=== PATIENT | male | born 1960 | race Caucasian/White ===

== ENCOUNTER 2018-01-02 11:58 | Inpatient (IN) | payer OTHER, SELFPAY ==
[2018-01-02 13:12] LABS: Hemoglobin 12.9 g/dL (14.0-18.0); Mean Corpuscular Hemoglobin 29.9 pg (27.0-31.0); Mean Corpuscular Volume 90.6 fl (80.0-94.0); Mean Platelet Volume 6.4 fL (7.4-10.4); Platelet Count 35 thou/uL (130-400); RBC Distribution Width 13.5 % (11.5-14.5); Red Blood Cell (RBC) Count 4.33 mill/uL (4.70-6.10)
[2018-01-02] MEDS ORDERED: ISOVUE-370 76%-LOCM 1 ML ONE (13:13)
[2018-01-02 13:19] LABS: ALT (SGPT) 27 U/L (8-55); AST (SGOT) 32 U/L (5-34); Albumin 4.2 g/dL (3.5-5.0); Alkaline Phosphatase 139 U/L (40-150); Anion Gap 18 mmol/L (10-20); BUN (Urea Nitrogen) 12 mg/dL (8.4-25.7); Bilirubin, Total 0.7 mg/dL (0.2-1.2); CK (CPK) 73 U/L (30-200); Calc. Creatinine Clearance 0 mL/min (70-130); Calcium 9.8 mg/dL (7.8-10.44); Carbon Dioxide 27 mmol/L (22-29); Chloride 95 mmol/L (98-107); Estimated GFR-MDRD 86; Globulin 2.5 g/dL (2.4-3.5); Glucose 92 mg/dL (70-105); Potassium 4.5 mmol/L (3.5-5.1); Protein, Total 6.7 g/dL (6.0-8.3); Sodium 135 mmol/L (136-145)
[2018-01-02 13:22] LABS: Troponin I Less than 0.010 ng/mL (< 0.028)
[2018-01-02] MEDS ORDERED: Morphine 4 MG/ML VIAL ONE ×2 (13:30→18:37)
[2018-01-02 13:40] LABS: Acanthocytes SLIGHT = 1-5 cells (100X) (None Seen); Band 5 % (5-11); Differential Comment Blast-Like Cell(s); Lymphocytes 15 % (21-51); MDiff Complete? YES; Metamyelocyte 1 % (0-0); Monocytes 3 % (0-10); Myelocyte 1 % (0-0); Neutrophil 2 % (42-75); PLT Morphology Comment Appears Decreased
--- NOTE | 2018-01-02 13:56 | RAD ---
PORTABLE CHEST 1 VIEW: Date: 01/02/18 Time: 1310 hours HISTORY: Chest pain. FINDINGS: Comparison made with exam of 04/26/16. Right-sided Port-A-Cath remains in place. The heart size is normal. The lungs are expanded without fo mari areas of consolidation, pneumothoraces, or pleural effusions. No acute osseous abnormalities are seen. IMPRESSION: No radiographic evidence of acute cardiopulmonary process. POS: C
--- NOTE | 2018-01-02 14:14 | CT ---
CTA OF THE THORAX UTILIZING IV CONTRAST AND 3D REFORMATTED IMAGING: Date: 01/02/18 INDICATION: History of chest pain. COMPARISON: Prior CT of the thorax dated 04/17/16. FINDINGS: There is stable mid ectasia of the ascending aorta measuring up to 3.8 cm. The aortic arch measures 2 .4 cm. The descending thoracic aorta at level of right main pulmonary artery measures 2.2 cm. No defi nite dissection is evident. Abdominal aorta normal appearing. There is scattered emphysema. There are areas of peripheral tree-in-bud nodularity within both upper lobes. The pleural based soft tissue density seen anterior to the right middle lobe is stable, measur ing 1.5 x 0.6 cm. The suprahilar lymph node has decreased in size from the most recently comparison of 04/17/16, now me asuring 2.3 x 1.7 cm, where it previously measured 3.6 x 1.2 cm. There has been interval development of soft tissue mass involving the superior pole of the right kidn ey measuring 6.6 x 5.8 cm. Bulky adenopathy of the upper abdomen is significantly decreased in promin ence from the comparison CT abdomen/pelvis seen on 06/23/16. Nodule in the upper abdomen previously m easured 2.5 cm on the comparison exam on image 36 of series 2, now measures 1.9 cm on image 146 of se prosper 2. No acute osseous abnormality is evident. The spleen is surgically absent. IMPRESSION: 1. No evidence of aortic dissection, occlusion, or aneurysm. There is mild dilatation of the ascendi ng aorta. 2. Soft tissue mass superior pole right kidney is concerning for malignancy. Follow-up CT of abdomen utilizing renal mass protocol is recommended for further evaluation and characterization. 3. Improvement of the adenopathy seen within the mediastinum and upper abdomen. Interval splenectomy . 4. Tree-in-bud nodularity in both upper lobes are nonspecific, but can be seen with infectious, infl ammatory, and neoplastic etiologies. This is most commonly seen with bronchiolitis. 5. Scattered emphysema. CODE T. POS: [facility]
[2018-01-02] MEDS ORDERED: Levofloxacin 500 mg/D5W 100 ml Premix Bag ONE (15:12)
[2018-01-02] MEDS ORDERED: Morphine 4 MG/ML VIAL SLOW IVP PRN (16:13)
[2018-01-02] MEDS ORDERED: Zolpidem Tartrate 5 MG TAB PO PRN (16:13)
[2018-01-02] MEDS ORDERED: Guaifenesin DM 100-10/5 ML UDCUP PO PRN (16:13)
[2018-01-02] MEDS ORDERED: Acetaminophen 325 MG TAB PO PRN (16:13)
--- NOTE | 2018-01-02 16:49 | HP ---
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 HISTORY OF PRESENTING ILLNESS: The patient gives history of body aches and chest pain. This started from yesterday. The aches and pains are all over, mostly. He has had known history of mantle cell lymphoma and has recent conversion into leukemia. He follows up with Dr. Garibay. There is no fever or expectoration. No complaints of urinary symptoms including frequency, urgency or burning. On arrival, he had a white count of 125 with 2% neutrophils , 15% lymphocytes, 5% bands and 73% of other cells which the pathologist has to review. He has had a dose of morphine in the ER and has felt good. The patient also has had a CT angio chest done which shows no evidence of PE. PAST MEDICAL AND SURGICAL HISTORY: History of mantle cell lymphoma diagnosed in 2016. He has had history of splenectomy done at [facility] in 2016. Facial reconstruction surgery due to baseball accident when he was 17 years old, has been on Imbruvica and Venclexta chemotherapy from Tuesday. CURRENT MEDICATIONS: The patient is on Imbruvica and Venclexta chemotherapy from Tuesday per patient. ALLERGIES: No known drug allergies. PERSONAL HISTORY: Smokes one pack a day. Does not abuse alcohol or drugs. FAMILY HISTORY: Mother is healthy and she is here at bedside. Father at the age of 84 years from old age and has had [place] prior to as well. CODE STATUS: FULL, both mom and brother make decisions for him. He has a daughter and 2 grandkids who all live in [place]. The patient is . REVIEW OF SYSTEMS: The following complete review of systems was negative, unless otherwise mentioned in the HPI or below: Constitutional: Weight loss or gain, ability to conduct usual activities. Skin: Rash, itching. Eyes: Double vision, pain. ENT/Mouth: Nose bleeding, neck stiffness, pain, tenderness. Cardiovascular: Palpitations, dyspnea on exertion, orthopnea. Respiratory: Shortness of breath, wheezing, cough, hemoptysis, fever or night sweats. Gastrointestinal: Poor appetite, abdominal pain, heartburn, nausea, vomiting, constipation, or diarrhea. Genitourinary: Urgency, frequency, dysuria, nocturia. Musculoskeletal: Pain, swelling. Neurologic/Psychiatric: Anxiety, depression. Allergy/Immunologic: Skin rash, bleeding tendency. PHYSICAL EXAMINATION: GENERAL: The patient is a 57-year-old male who is currently not in any acute distress. VITAL SIGNS: Blood pressure 144/76, pulse 90 per minute, respiratory rate 16 per minute, temperature 98.7 degrees Fahrenheit, saturating 98% on room air. NECK: Supple, no elevated JVD. HEENT: Extraocular muscles are intact. Pupils are reacting to light. Oral cavity mucous membranes are moist. No exudates or congestion. CARDIOVASCULAR: S1, S2 heard. Regular rhythm. RESPIRATORY: Air entry 1+ bilaterally. No rales or rhonchi. ABDOMEN: Soft, bowel sounds heard. No tenderness, rigidity or guarding. EXTREMITIES: No peripheral edema or calf tenderness. VASCULAR SYSTEM: Peripheral pulses 1+ bilateral, no ischemic ulcerations or gangrene. CENTRAL NERVOUS SYSTEM: No gross focal deficits seen. Patient is alert, awake , oriented well. PSYCHIATRIC: The patient's mood is euthymic. No hallucinations or delusions. LABORATORY AND X-RAY FINDINGS: White count of 125, H&H 12 and 39, MCV is 90, platelet count is 35, with 2% neutrophils, 5% bands, 15% lymphocytes, 3% monocytes and 73% other cells type. Sodium 135, BUN 12, creatinine 0.9, glucose is 92. Liver enzymes are within normal limits. First set of cardiac enzymes are negative. Albumin is 4.2. CT angio chest done shows no evidence of aortic dissection or occlusion, or aneurysm. There is mild dilatation of ascending aorta, soft tissue mass in the superior pole of right kidney concerning for malignancy, possible infectious/inflammatory or neoplastic nonspecific findings in the lungs with tree-in-bud nodularity. Scattered emphysema. EKG done shows normal sinus rhythm at 91 beats per minute. CLINICAL IMPRESSION AND PLAN: The patient will be admitted to oncology floor for mantle cell lymphoma with possible conversion to leukemia. The ER physician had tried to call Jose Ng, but he was apparently declined and was asked to go in to Hospice per ER physician. He is a patient of Dr. Garibay who will be evaluating the patient. She will discuss with the patient about poor prognosis during his hospitalization here per ER doc who spoke with her. For now, he will be on morphine for pain control. Pepcid 20 mg twice daily. We will place him on a regular diet and await Oncology plans for patient. MTDD
[2018-01-02] MEDS: Sodium Chloride 0.9% 1,000 ML IV SCH (20:12)
[2018-01-02] MEDS: Famotidine 20 MG TAB PO SCH (20:15)
--- NOTE | 2018-01-02 20:18 | CON ---
DATE OF CONSULTATION: 01/02/2018 REASON FOR CONSULTATION: Mantle cell lymphoma. HISTORY OF PRESENT ILLNESS: Mr. Merino is a pleasant 57-year-old male , who has mantle cell lymphoma. He is on Imbruvica, but had recent relapse with a white blood cell count of 125,000. He presented to the emergency room today with chest pain, states that his pain is like a band across his diaphragm , it is worse with movement and with a deep breath. He had a chest x-ray performed, which showed no acute process. He underwent a CT angio to rule out PE. There was a pleural based soft tissue density in the right middle lobe measuring 1.5 x 0.6 cm. There was a suprahilar lymph node noted smaller than a previous scan from 2016. He also had a soft tissue mass at the superior pole of the right kidney measuring 6.6 x 5.8 cm. There was no evidence of PE. The patient is being admitted for serial enzymes and pain control. PAST MEDICAL HISTORY: Mantle cell lymphoma diagnosed in 2016. PAST SURGICAL HISTORY: 1. Splenectomy. 2. Facial reconstruction. 3. MediPort placement. ALLERGIES: No known drug allergies. HOME MEDICATIONS: Ibrutinib 140 mg 4 tablets daily. FAMILY HISTORY: Noncontributory. SOCIAL HISTORY: He is , has 1 child. He is a current every day smoker. No alcohol or illicit drug use. REVIEW OF SYSTEMS: Twelve point review of systems is negative except for noted in HPI. PHYSICAL EXAMINATION: VITAL SIGNS: Stable. GENERAL: A well-developed, well-nourished male in no acute distress. HEENT: Normocephalic, atraumatic. Pupils are equal and reactive to light. NECK: Supple. CARDIOVASCULAR: Regular rate and rhythm. LUNGS: Clear. ABDOMEN: Soft, nontender, bowel sounds are positive. EXTREMITIES: No clubbing, cyanosis or edema. SKIN: No rash. HEMATOLOGIC: No petechia or purpura. NEUROLOGIC: Nonfocal. PSYCHIATRIC: The patient is alert, oriented and appropriate. PERTINENT LABORATORY AND X-RAYS: Current WBCs are 125,000, hemoglobin 12.9, hematocrit 39.2, platelet count 35,000. He has got 2% neutrophils, 5% bands, 15 % lymphocytes, and large atypical cells consistent with mantle cell lymphoma. Sodium is 135, potassium is 4.5, chloride is 95, CO2 is 27, BUN is 12, creatinine is 0.91, calcium is 9.8, total bilirubin is 0.7, AST is 32, ALT is 27 , alkaline phosphatase is 139, creatinine kinase is 73. Troponin is negative. Serum total protein is 6.7, albumin is 4.2, and globulin is 2.5. Radiology per HPI. IMPRESSION: 1. Mantle cell lymphoma with recent relapse. 2. Chest pain, likely noncardiac. DISCUSSION: The patient was originally diagnosed with mantle cell lymphoma in 2016 and was in remission until recently. He is due to start a new chemotherapy regimen on Tuesday with Venclexta. His chest pain is likely noncardiac, but may due to leukostasis. It generally does not happen with lymphocytes. There is no evidence of acute shortness of breath or mental status changes. We would treat with pain medication, IV fluids, and serial enzymes to ensure that is noncardiac. We will follow his hospital course closely. Thank you for the consult. STEVE
[2018-01-02] MEDS: Morphine 5 MG/ML SYRINGE SLOW IVP PRN ×2 (20:21→23:18)
[2018-01-02 21:58] VITALS: BMI 19.5
[2018-01-03] MEDS: Morphine 5 MG/ML SYRINGE SLOW IVP PRN ×6 (03:35→19:40)
[2018-01-03 05:34] LABS: Hemoglobin 12.1 g/dL (14.0-18.0); Mean Corpuscular HGB CONC 32.9 g/dL (32.0-36.0); Mean Corpuscular Volume 90.9 fl (80.0-94.0); Mean Platelet Volume 10.3 fL (7.4-10.4); Platelet Count 32 thou/uL (130-400); RBC Distribution Width 13.4 % (11.5-14.5); Red Blood Cell (RBC) Count 4.02 mill/uL (4.70-6.10)
[2018-01-03 05:41] LABS: Anion Gap 13 mmol/L (10-20); BUN (Urea Nitrogen) 11 mg/dL (8.4-25.7); Calc. Creatinine Clearance 84 mL/min (70-130); Calcium 9.6 mg/dL (7.8-10.44); Carbon Dioxide 29 mmol/L (22-29); Chloride 100 mmol/L (98-107); Estimated GFR-MDRD Greater than 90; Glucose 79 mg/dL (70-105); Potassium 5.2 mmol/L (3.5-5.1); Sodium 137 mmol/L (136-145)
[2018-01-03 05:52] LABS: Lymphocytes 8 % (21-51); MDiff Complete? YES; Monocytes 3 % (0-10); Neutrophil 3 % (42-75); PLT Morphology Comment Appears Decreased
[2018-01-03] MEDS: Sodium Chloride 0.9% 1,000 ML IV SCH ×2 (06:38→18:17)
[2018-01-03] MEDS: Famotidine 20 MG TAB PO SCH ×2 (07:53→19:42)
--- NOTE | 2018-01-03 11:36 | PDOC.PN ---
- Subjective Encounter Start Date: 01/03/18 Encounter Start Time: 11:00 Subjective: no chest pain, has generalized aches all over -: no sob - Objective Resuscitation Status: Resuscitation Status FULL:Full Resuscitation MAR Reviewed: Yes Vital Signs & Weight: Vital Signs (12 hours) Temp Pulse Resp BP BP Pulse Ox 01/03/18 11:32 98.2 F 98 20 122/76 94 L 01/03/18 08:00 98.6 F 89 16 94 L 01/03/18 07:41 98.6 F 89 16 127/82 01/03/18 05:05 98.8 F 82 20 129/82 93 L 01/03/18 00:00 98.4 F 83 20 153/82 H 94 L Weight Admit Weight 136 lb 0.051 oz Weight 136 lb 0.051 oz Result Diagrams: 01/03/18 05:02 01/03/18 05:02 Phys Exam - Physical Examination HEENT: PERRLA, moist MMs Neck: no JVD, supple Respiratory: no wheezing, no rales rhonchi+ Cardiovascular: RRR, no significant murmur Gastrointestinal: soft, non-tender, positive bowel sounds Musculoskeletal: no edema, pulses present Neurological: non-focal, moves all 4 limbs Psychiatric: normal affect, A&O x 3 Dx/Plan (1) Mantle cell lymphoma Code(s): C83.10 - MANTLE CELL LYMPHOMA, UNSPECIFIED SITE Status: Chronic Comment: recurrence with likely leukemic conversion? (2) COPD (chronic obstructive pulmonary disease) Status: Chronic Qualifiers: COPD type: chronic bronchitis - Plan gentle iv hydration -: is awaiting to talk to him -: dc plan per onc advice -: duonebs -: morphine prn * . Review of Systems - Medications/Allergies Allergies/Adverse Reactions: Allergies Allergy/AdvReac Type Severity Reaction Status Date / Time No Known Allergies Allergy Verified 04/17/16 12:04 Medications: Current Medications Acetaminophen (Tylenol) 650 mg PO Q4H PRN PRN Reason: Headache/Fever or Pain Famotidine (Pepcid) 20 mg PO BID [facility] Last Admin: 01/03/18 07:53 Dose: 20 mg Guaifenesin/Dextromethorphan (Robitussin Dm) 15 ml PO Q4H PRN PRN Reason: Cough Sodium Chloride (Normal Saline 0.9%) 1,000 mls @ 75 mls/hr IV .[id number] [facility] Last Admin: 01/03/18 06:38 Dose: 1,000 mls Morphine Sulfate (Morphine) 4 mg SLOW IVP Q3H PRN PRN Reason: Chest Pain/BP Elevations Last Admin: 01/03/18 09:22 Dose: 4 mg Sodium Chloride (Flush - Normal Saline) 10 ml IVF PRN PRN PRN Reason: Saline Flush Zolpidem Tartrate (Ambien) 5 mg PO HSPRN PRN PRN Reason: Insomnia
[2018-01-03] MEDS: Morphine ER 30 MG TAB PO SCH (19:41)
[2018-01-03] MEDS: Morphine 4 MG/ML VIAL SLOW IVP PRN (22:50)
[2018-01-04] MEDS: Morphine 4 MG/ML VIAL SLOW IVP PRN ×6 (03:38→21:52)
[2018-01-04] MEDS ORDERED: Lidocaine 5% Patch TD PRN (07:57)
--- NOTE | 2018-01-04 07:59 | PDOC.PN ---
- Subjective Encounter Start Date: 01/04/18 Encounter Start Time: 07:57 Subjective: nsg notes rev, [place], pt c/o of pain in hips and posterior thighs but it -: often moves throughout -pain since oncologic dx, morphine "brings it down -: to a 5" also has only had 1 ensure since adm hasn't been able to eat since his last chemo caused his dentures to not fit well - Objective Resuscitation Status: Resuscitation Status FULL:Full Resuscitation Vital Signs & Weight: Vital Signs (12 hours) Temp Pulse Resp BP BP Pulse Ox 01/04/18 07:20 98.5 F 120 H 18 122/84 92 L 01/04/18 06:33 120 H 16 01/04/18 03:39 98.1 F 111 H 20 140/87 91 L 01/04/18 03:32 112 H 20 91 L 01/03/18 23:35 98.1 F 122 H 20 155/75 H 92 L 01/03/18 20:00 98.1 F 122 H 20 132/87 92 L Weight Admit Weight 136 lb 0.051 oz Weight 136 lb 0.051 oz I&O: 01/03/18 01/04/18 01/05/18 06:59 06:59 06:59 Intake Total 2302 Output Total 2 Balance 2300 Result Diagrams: 01/03/18 05:02 01/03/18 05:02 Phys Exam - Physical Examination Constitutional: NAD thin, cachectic appearing HEENT: PERRLA, moist MMs, sclera anicteric, TM's clear Neck: no nodes Respiratory: no wheezing, no rales, no rhonchi, clear to auscultation bilateral Cardiovascular: RRR, no rub Gastrointestinal: soft, non-tender, no distention, positive bowel sounds Musculoskeletal: no edema, pulses present Neurological: moves all 4 limbs Psychiatric: normal affect, A&O x 3 Dx/Plan - Plan * 57M hx mantle cell lymphoma who p/w pain * concern for mantle cell lymphoma relapse * apprec onc c/s - Dr. Garibay * d/w with bedside nsg & pt - appears pt is awaiting chemotherapy medication regimen to arrive to initiate a salvage regimen for mantle cell lymphoma relapse * suspect leukocytosis and thrombocytopenia are related to lymphoma pain * cautious morphine adminstration for pain * dehydration * transaction coordinator c/s for supplement re-initiation diet: see above activity: oob preferably at least 3x/day, ambulatory dvt ppx - hold pharmacological dvt ppx 2/2 thrombocytopenia, t/c TEDS if pt is willing Review of Systems - Medications/Allergies Allergies/Adverse Reactions: Allergies Allergy/AdvReac Type Severity Reaction Status Date / Time No Known Allergies Allergy Verified 04/17/16 12:04 Medications: Current Medications Acetaminophen (Tylenol) 650 mg PO Q4H PRN PRN Reason: Headache/Fever or Pain Albuterol/Ipratropium (Duoneb) 3 ml NEB [id number] [facility] Last Admin: 01/04/18 06:33 Dose: 3 ml Famotidine (Pepcid) 20 mg PO BID [facility] Last Admin: 01/03/18 19:42 Dose: 20 mg Guaifenesin/Dextromethorphan (Robitussin Dm) 15 ml PO Q4H PRN PRN Reason: Cough Sodium Chloride (Normal Saline 0.9%) 1,000 mls @ 75 mls/hr IV .[id number] [facility] Last Admin: 01/03/18 18:17 Dose: 1,000 mls Lidocaine (Lidoderm 5% Patch) 1 patch TD DAILY PRN PRN Reason: Pain Morphine Sulfate (Ms Contin) 30 mg PO Q12HR [facility] Last Admin: 01/03/18 19:41 Dose: 30 mg Morphine Sulfate (Morphine) 4 mg SLOW IVP Q3H PRN PRN Reason: Chest Pain/BP Elevations Last Admin: 01/04/18 06:49 Dose: 4 mg Sodium Chloride (Flush - Normal Saline) 10 ml IVF PRN PRN PRN Reason: Saline Flush Zolpidem Tartrate (Ambien) 5 mg PO HSPRN PRN PRN Reason: Insomnia
[2018-01-04] MEDS ORDERED: Lidocaine Patch Removal 1 EACH TOP SCH (08:15)
[2018-01-04] MEDS: Sodium Chloride 0.9% 1,000 ML IV SCH ×2 (08:46→21:52)
[2018-01-04] MEDS: Morphine ER 30 MG TAB PO SCH ×2 (09:04→20:26)
[2018-01-04] MEDS: Famotidine 20 MG TAB PO SCH ×2 (09:05→20:28)
[2018-01-04 18:49] LABS: Hemoglobin 10.8 g/dL (14.0-18.0); Mean Corpuscular HGB CONC 33.1 g/dL (32.0-36.0); Mean Corpuscular Hemoglobin 30.1 pg (27.0-31.0); Mean Corpuscular Volume 90.9 fl (80.0-94.0); Mean Platelet Volume 9.6 fL (7.4-10.4); Platelet Count 27 thou/uL (130-400); RBC Distribution Width 13.3 % (11.5-14.5); Red Blood Cell (RBC) Count 3.57 mill/uL (4.70-6.10); White Blood Cell (WBC) Count 89.1 thou/uL (4.8-10.8)
[2018-01-04 18:57] LABS: ALT (SGPT) 19 U/L (8-55); AST (SGOT) 38 U/L (5-34); Albumin 3.4 g/dL (3.5-5.0); Alkaline Phosphatase 156 U/L (40-150); Anion Gap 15 mmol/L (10-20); BUN (Urea Nitrogen) 13 mg/dL (8.4-25.7); Bilirubin, Total 0.6 mg/dL (0.2-1.2); Calc. Creatinine Clearance 91 mL/min (70-130); Calcium 9.1 mg/dL (7.8-10.44); Carbon Dioxide 25 mmol/L (22-29); Chloride 98 mmol/L (98-107); Estimated GFR-MDRD Greater than 90; Globulin 2.2 g/dL (2.4-3.5); Glucose 87 mg/dL (70-105); LDH 1489 U/L (125-220); Phosphorus 3.3 mg/dL (2.3-4.7); Potassium 4.3 mmol/L (3.5-5.1); Protein, Total 5.6 g/dL (6.0-8.3); Sodium 134 mmol/L (136-145); Uric Acid 7.9 mg/dL (3.5-7.2)
[2018-01-04 18:58] LABS: Differential Comment Blast-Like Cell(s); Lymphocytes 34 % (21-51); MDiff Complete? YES; Monocytes 3 % (0-10); Neutrophil 4 % (42-75); PLT Morphology Comment Appears Decreased; Reactive Lymphocytes 4 % (0-10)
[2018-01-04] MEDS: HYDROcodone/Acetaminophen 5/325 mg Tablet PO PRN (20:24)
[2018-01-05] MEDS: HYDROcodone/Acetaminophen 5/325 mg Tablet PO PRN ×4 (00:28→18:52)
[2018-01-05] MEDS: Morphine 2 MG/ML SYRINGE SLOW IVP PRN ×3 (02:55→09:31)
[2018-01-05 06:52] LABS: Hemoglobin 10.3 g/dL (14.0-18.0); Mean Corpuscular HGB CONC 32.9 g/dL (32.0-36.0); Mean Corpuscular Hemoglobin 30.5 pg (27.0-31.0); Mean Corpuscular Volume 92.6 fl (80.0-94.0); Mean Platelet Volume 10.3 fL (7.4-10.4); Platelet Count 29 thou/uL (130-400); RBC Distribution Width 13.3 % (11.5-14.5); Red Blood Cell (RBC) Count 3.39 mill/uL (4.70-6.10); White Blood Cell (WBC) Count 76.6 thou/uL (4.8-10.8)
[2018-01-05 07:01] LABS: ALT (SGPT) 19 U/L (8-55); AST (SGOT) 38 U/L (5-34); Albumin 3.3 g/dL (3.5-5.0); Alkaline Phosphatase 176 U/L (40-150); Anion Gap 14 mmol/L (10-20); BUN (Urea Nitrogen) 13 mg/dL (8.4-25.7); Bilirubin, Total 0.7 mg/dL (0.2-1.2); Calc. Creatinine Clearance 90 mL/min (70-130); Carbon Dioxide 25 mmol/L (22-29); Chloride 98 mmol/L (98-107); Estimated GFR-MDRD Greater than 90; Globulin 2.2 g/dL (2.4-3.5); Glucose 90 mg/dL (70-105); LDH 1729 U/L (125-220); Phosphorus 3.9 mg/dL (2.3-4.7); Potassium 4.2 mmol/L (3.5-5.1); Protein, Total 5.5 g/dL (6.0-8.3); Sodium 133 mmol/L (136-145); Uric Acid 8.1 mg/dL (3.5-7.2)
[2018-01-05 08:20] LABS: Band 2 % (5-11); Burr Cells SLIGHT = 2-5 cells (100X) (0-1/hpf); Differential Comment Blast-Like Cell(s); Lymphocytes 17 % (21-51); MDiff Complete? YES; Monocytes 6 % (0-10); Neutrophil 5 % (42-75); PLT Morphology Comment Appears Decreased; Polychromasia SLIGHT = 2-3 cells (100X) (0-2/hpf); Reactive Lymphocytes 1 % (0-10)
[2018-01-05] MEDS: Morphine ER 30 MG TAB PO SCH ×2 (09:32→20:45)
[2018-01-05] MEDS: Famotidine 20 MG TAB PO SCH ×2 (09:37→20:44)
[2018-01-05] MEDS: VENETOCLAX 10 MG PO SCH (09:41)
[2018-01-05] MEDS ORDERED: fentaNYL 50 mcg/hour Patch TD SCH (10:00)
[2018-01-05] MEDS: Sodium Chloride 0.9% 1,000 ML IV SCH ×2 (10:57→22:54)
[2018-01-05] MEDS: Morphine IR Tab 15 MG TAB PO PRN ×2 (13:01→18:30)
[2018-01-05] MEDS: Nicotine 14 MG PATCH TOP SCH (14:06)
--- NOTE | 2018-01-05 15:58 | PDOC.PN ---
- Subjective Encounter Start Date: 01/05/18 Encounter Start Time: 12:00 Subjective: nsg notes rev, [place], no new c/o -: migratory joint pain in general - Objective Resuscitation Status: Resuscitation Status FULL:Full Resuscitation Vital Signs & Weight: Vital Signs (12 hours) Temp Pulse Resp BP Pulse Ox 01/05/18 15:38 99.5 F 130 H 22 H 117/70 90 L 01/05/18 11:39 99.7 F H 114 H 22 H 138/87 91 L 01/05/18 08:47 113 H 16 92 L 01/05/18 08:00 98.2 F 109 H 22 H 95 01/05/18 07:44 98.2 F 109 H 22 H 133/76 95 Weight Admit Weight 136 lb 0.051 oz Weight 136 lb 0.051 oz I&O: 01/04/18 01/05/18 01/06/18 06:59 06:59 06:59 Intake Total 2302 1450 Output Total 2 Balance 2300 1450 Result Diagrams: 01/05/18 06:10 01/05/18 06:10 Phys Exam - Physical Examination Constitutional: NAD thin HEENT: PERRLA, sclera anicteric Respiratory: no wheezing, no rales, no rhonchi coarse throughout Cardiovascular: RRR, no significant murmur, no rub Gastrointestinal: soft, no distention, positive bowel sounds Musculoskeletal: no edema, pulses present Psychiatric: normal affect, A&O x 3 Dx/Plan - Plan * 57M hx mantle cell lymphoma who p/w pain * concern for mantle cell lymphoma relapse * apprec onc c/s - Dr. Garibay * salvage chemotherapy medication regimen pt at high risk for tumor lysis development, cont to monitor * suspect leukocytosis and thrombocytopenia are related to lymphoma pain * cautious morphine adminstration for pain, transition to a potential home regimen as tolerated * dehydration * mine wedge sawyer c/s for supplement re-initiation diet: see above activity: oob preferably at least 3x/day, ambulatory dvt ppx - hold pharmacological dvt ppx 2/2 thrombocytopenia, t/c TEDS if pt is willing Review of Systems - Medications/Allergies Allergies/Adverse Reactions: Allergies Allergy/AdvReac Type Severity Reaction Status Date / Time No Known Allergies Allergy Verified 04/17/16 12:04 Medications: Current Medications Acetaminophen (Tylenol) 650 mg PO Q4H PRN PRN Reason: Headache/Fever or Pain Hydrocodone Bitart/Acetaminophen ([place] 5/325) 1 tab PO Q4H PRN PRN Reason: Moderate Pain (4-6) Last Admin: 01/05/18 14:06 Dose: 1 tab Albuterol/Ipratropium (Duoneb) 3 ml NEB [id number] [facility] Last Admin: 01/05/18 14:48 Dose: 3 ml Famotidine (Pepcid) 20 mg PO BID [facility] Last Admin: 01/05/18 09:37 Dose: 20 mg Fentanyl (Duragesic) 50 mcg TD Q3D [facility] Last Admin: 01/05/18 10:56 Dose: 50 mcg Guaifenesin/Dextromethorphan (Robitussin Dm) 15 ml PO Q4H PRN PRN Reason: Cough Sodium Chloride (Normal Saline 0.9%) 1,000 mls @ 75 mls/hr IV .[id number] [facility] Last Admin: 01/05/18 10:57 Dose: 1,000 mls Lidocaine (Lidoderm 5% Patch) 1 patch TD DAILY PRN PRN Reason: Pain Miscellaneous Medication (Lidocaine Patch Removal) 1 each TOP ASDIR [facility] Morphine Sulfate (Ms Contin) 30 mg PO Q12HR [facility] Last Admin: 01/05/18 09:32 Dose: 30 mg Morphine Sulfate (Morphine) 4 mg SLOW IVP Q3H PRN PRN Reason: Chest Pain/BP Elevations Last Admin: 01/05/18 09:31 Dose: 4 mg Morphine Sulfate (Morphine Ir Tab) 15 mg PO Q4H PRN PRN Reason: Moderate to Severe Pain (6-10) Last Admin: 01/05/18 13:01 Dose: 15 mg Nicotine (Nicoderm Patch) 14 mg TOP Q24HR [facility] Last Admin: 01/05/18 14:06 Dose: 14 mg Venclexta 10mg Patient's Home Medication 0 each PO QAM [facility] Stop: 01/11/18 09:01 Last Admin: 01/05/18 09:41 Dose: 1 each Sodium Chloride (Flush - Normal Saline) 10 ml IVF PRN PRN PRN Reason: Saline Flush Zolpidem Tartrate (Ambien) 5 mg PO HSPRN PRN PRN Reason: Insomnia
[2018-01-06] MEDS: Morphine IR Tab 15 MG TAB PO PRN ×3 (01:21→13:18)
[2018-01-06] MEDS: HYDROcodone/Acetaminophen 5/325 mg Tablet PO PRN ×2 (02:59→14:43)
[2018-01-06 09:03] VITALS: BP 133/78; TEMP 98.2
[2018-01-06] MEDS: Morphine ER 30 MG TAB PO SCH (09:26)
[2018-01-06] MEDS: Famotidine 20 MG TAB PO SCH (09:28)
[2018-01-06] MEDS: VENETOCLAX 10 MG PO SCH (09:28)
[2018-01-06 09:47] LABS: ALT (SGPT) 20 U/L (8-55); AST (SGOT) 35 U/L (5-34); Albumin 2.9 g/dL (3.5-5.0); Alkaline Phosphatase 219 U/L (40-150); Anion Gap 14 mmol/L (10-20); BUN (Urea Nitrogen) 15 mg/dL (8.4-25.7); Bilirubin, Total 0.7 mg/dL (0.2-1.2); Calc. Creatinine Clearance 100 mL/min (70-130); Calcium 8.6 mg/dL (7.8-10.44); Carbon Dioxide 24 mmol/L (22-29); Chloride 96 mmol/L (98-107); Estimated GFR-MDRD Greater than 90; Globulin 2.2 g/dL (2.4-3.5); Glucose 103 mg/dL (70-105); Potassium 4.1 mmol/L (3.5-5.1); Protein, Total 5.1 g/dL (6.0-8.3); Sodium 130 mmol/L (136-145)
[2018-01-06 10:44] LABS: Band 2 % (5-11); Differential Comment Blast-Like Cell(s); Hemoglobin 9.7 g/dL (14.0-18.0); Lymphocytes 11 % (21-51); MDiff Complete? YES; Mean Corpuscular HGB CONC 33.7 g/dL (32.0-36.0); Mean Corpuscular Hemoglobin 30.5 pg (27.0-31.0); Mean Corpuscular Volume 90.6 fl (80.0-94.0); Mean Platelet Volume 10.4 fL (7.4-10.4); Neutrophil 3 % (42-75); PLT Morphology Comment Appears Decreased; Platelet Count 27 thou/uL (130-400); RBC Distribution Width 13.2 % (11.5-14.5); Red Blood Cell (RBC) Count 3.17 mill/uL (4.70-6.10); Schistocytes SLIGHT = 2-5 cells (100X) (0-1/hpf); White Blood Cell (WBC) Count 48.3 thou/uL (4.8-10.8)
[2018-01-06] MEDS: Nicotine 14 MG PATCH TOP SCH (13:01)
[2018-01-06] MEDS: Sodium Chloride 0.9% 1,000 ML IV SCH (13:09)
== END 2018-01-06 16:39 | disposition home or self-care (01) | DRG 841 ==
LOC: ERS 11:58 → ERHOLD 15:07 → T4-B 18:21 → ERHOLD 18:22 → T4-B 19:21 → ONC 01-03 20:32
PROVIDERS: ADMIT Internal Medicine; ATTEND Internal Medicine
DX: C83.10 Mantle cell lymphoma, unspecified site (principal); R64 Cachexia; D69.59 Other secondary thrombocytopenia; E86.0 Dehydration; Z68.1 Body mass index [BMI] 19.9 or less, adult; R07.89 Other chest pain; J44.9 Chronic obstructive pulmonary disease, unspecified; F17.210 Nicotine dependence, cigarettes, uncomplicated; Z90.81 Acquired absence of spleen
CPT/HCPCS: 36415; 71045; 71275; 80048; 80053; 82553; 83615; 84100; 84484; 84550; 85025; 93005; 94640; 96361; 96365; 96375; 96376; J2270; A4216; J1642; J1956; J7620

== ENCOUNTER 2018-01-11 08:24 | Inpatient (IN) | payer SELFPAY ==
[2018-01-11 09:06] LABS: Hemoglobin 10.1 g/dL (14.0-18.0); Mean Corpuscular HGB CONC 33.8 g/dL (32.0-36.0); Mean Corpuscular Hemoglobin 31.6 pg (27.0-31.0); Mean Corpuscular Volume 93.3 fl (80.0-94.0); Mean Platelet Volume 10.9 fL (7.4-10.4); Platelet Count 28 thou/uL (130-400); RBC Distribution Width 12.9 % (11.5-14.5); Red Blood Cell (RBC) Count 3.21 mill/uL (4.70-6.10); White Blood Cell (WBC) Count 14.5 thou/uL (4.8-10.8)
[2018-01-11 09:22] LABS: ALT (SGPT) 17 U/L (8-55); AST (SGOT) 28 U/L (5-34); Albumin 3.5 g/dL (3.5-5.0); Alkaline Phosphatase 282 U/L (40-150); Anion Gap 19 mmol/L (10-20); BUN (Urea Nitrogen) 16 mg/dL (8.4-25.7); Bilirubin, Total 0.7 mg/dL (0.2-1.2); Calc. Creatinine Clearance 0 mL/min (70-130); Calcium 9.6 mg/dL (7.8-10.44); Carbon Dioxide 27 mmol/L (22-29); Chloride 91 mmol/L (98-107); Estimated GFR-MDRD Greater than 90; Globulin 2.6 g/dL (2.4-3.5); Glucose 110 mg/dL (70-105); Lipase 54 U/L (8-78); Potassium 4.1 mmol/L (3.5-5.1); Protein, Total 6.1 g/dL (6.0-8.3); Sodium 133 mmol/L (136-145)
[2018-01-11 09:25] LABS: Differential Comment Blast-Like Cell(s); Lymphocytes 37 % (21-51); MDiff Complete? YES; Metamyelocyte 3 % (0-0); Monocytes 6 % (0-10); Neutrophil 1 % (42-75); PLT Morphology Comment Appears Decreased; Polychromasia SLIGHT = 2-3 cells (100X) (0-2/hpf); Reactive Lymphocytes 3 % (0-10); Schistocytes SLIGHT = 2-5 cells (100X) (0-1/hpf)
[2018-01-11] MEDS ORDERED: Piperacillin/Tazobactam 3.375 GM in Sodium Chloride 0.9% 100 ML IVPB SCH (10:15)
[2018-01-11] MEDS ORDERED: HYDROmorphone 0.5 MG/0.5 ML SYRINGE ONE ×2 (10:40→13:19)
[2018-01-11] MEDS ORDERED: HYDROmorphone 0.5 MG/0.5 ML SYRINGE SLOW IVP SCH ×2 (10:45→12:00)
[2018-01-11 11:40] LABS: Bilirubin Negative (Negative); Blood, Urine Trace (Negative); Clarity CLEAR (Clear); Glucose, Urine (Dipstick) Negative (Negative); Leukocyte Negative (Negative); Nitrite Negative (Negative); Protein, Urine (Dipstick) Negative (Neg-Trace); Specific Gravity, Urine 1.036 (1.002-1.036)
[2018-01-11 11:42] LABS: Bacteria/HPF None Seen HPF (None Seen); Pathc Cast-AUWi Flag 2.32 (0-2.49); Squamous Epithelial 0-3 HPF (0-3); WBC/HPF 0-3 HPF (0-3)
[2018-01-11 11:57] LABS: Hyaline Casts/LPF 7-10 HYALINE CAST LPF (0-3 Hyaline); Renal Epithelial 0-3 HPF (0-3); Transitional Epithelial 0-3 HPF (0-3)
[2018-01-11] MEDS ORDERED: Ondansetron HCl/PF 4 MG/2 ML Vial ONE (12:27)
[2018-01-11 13:08] LABS: Lactic Acid 3.2 mmol/L (0.5-2.2)
--- NOTE | 2018-01-11 13:37 | RAD ---
PORTABLE CHEST: HISTORY: Abdominal pain. COMPARISON: 01/02/2018 FINDINGS: There is a subtle new density in the right lung base on the current study, of uncertain significance. I cannot completely exclude a new infiltrate. The lungs otherwise appear clear and unchanged. A M ediport catheter is in adequate position, overlying the SVC. The heart and mediastinum are unremarka ble. IMPRESSION: Question new density in the right lung base. This is poorly evaluated on this portable exam. If the re is concern for pneumonia, recommend upright PA and lateral views of chest. POS: [facility]
--- NOTE | 2018-01-11 13:45 | CT ---
CT ABDOMEN AND PELVIS WITH IV AND ORAL CONTRAST. HISTORY: Abdominal pain. Lymphoma. COMPARISON: 06/23/16 and 01/02/18. FINDINGS: Bilateral pleural fluid and bibasilar lung atelectasis are now partially visualized. Oral contrast e xtends into the esophagus. Lobular low-density mass projecting from the superior pole right kidney m easures up to 7.4 x 6.9 x 5.1 cm greatest diameters. Spleen is surgically absent. Confluent adenopa thy throughout the retroperitoneum is less pronounced than on the 06/23/16 exam. Individual lymph nod es are not well delineated for measurement. The adenopathy measures up to 1.8 cm thickness at the le megan of the lower abdominal aorta anterior to the aorta. Urinary bladder is incompletely distended. No free air. No evidence of bowel obstruction. IMPRESSION: 1. Interval development of bilateral pleural effusions. 2. Large right renal mass superior pole. Malignancy is favored. 3. Confluent retroperitoneal adenopathy is less pronounced than on the 06/23/16 exam. 4. Status post splenectomy. 5. Gastroesophageal reflux. POS: [facility]
[2018-01-11] MEDS ORDERED: Acetaminophen 325 MG TAB PO PRN (14:04)
[2018-01-11] MEDS ORDERED: Guaifenesin DM 100-10/5 ML UDCUP PO PRN (14:04)
[2018-01-11] MEDS ORDERED: Ondansetron HCl/PF 4 MG/2 ML Vial IVP PRN (14:04)
[2018-01-11] MEDS ORDERED: Senokot 8.6 MG TAB PO PRN (14:04)
[2018-01-11] MEDS ORDERED: Zolpidem Tartrate 5 MG TAB PO PRN (14:04)
[2018-01-11] MEDS ORDERED: Lidocaine 5% Patch TD PRN (14:04)
[2018-01-11] MEDS ORDERED: HYDROcodone/Acetaminophen 5/325 mg Tablet PO PRN (14:04)
[2018-01-11] MEDS ORDERED: ISOVUE-370 76%-LOCM 1 ML ONE (14:54)
[2018-01-11] MEDS: Morphine IR Tab 15 MG TAB PO PRN ×2 (15:00→19:22)
[2018-01-11] MEDS: fentaNYL 50 mcg/hour Patch TD SCH (15:01)
[2018-01-11] MEDS: Sodium Chloride 0.9% 1,000 ML IV SCH ×2 (15:09→15:51)
[2018-01-11 15:36] VITALS: BMI 19.5
[2018-01-11] MEDS: Ketorolac Tromethamine 30 MG/ML VIAL IVP PRN ×2 (15:45→21:01)
[2018-01-11 15:59] LABS: Uric Acid 5.4 mg/dL (3.5-7.2)
--- NOTE | 2018-01-11 16:59 | CON ---
DATE OF CONSULTATION: 01/11/2018 REASON FOR CONSULTATION: Lymphoma. HISTORY OF PRESENT ILLNESS: Mr. Merino is a pleasant 57-year-old male with mantle cell lymp jayant who was recently discharged from this facility last Tuesday. He was here for pain. During this admission, he was started on new chemotherapy consisting of oral Venetoclax. He was kept several day s after initiation of this treatment to prevent tumor lysis syndrome. He was discharged home on . Unfortunately, he did not get his pain medications filled which included Duragesic patch and MS IR. Over the last 24 hours, he began to have diffuse abdominal pain unrelieved with his MS Contin. He presented to the emergency room for further evaluation. He had an abdominal and pelvis CT scan morning, which showed an inner development of bilateral pleural effusions. There is a large right renal mass measuring 7.4 x 6.9 x 5.1. He has confluent retroperitoneal adenopathy which is less pro nounced on the prior exam. He was given Dilaudid in the ER with minimal relief of symptoms. He did have an elevated lactic acid. He was also mildly neutropenic. He was started on IV fluids and admit karli for pain control. Prior to the initiation of oral chemotherapy on 01/02/2018, his white count wa s 125,000; today it is 14,500. He denies any shortness of breath or chest discomfort. He is writhin g in pain at bedside. His abdomen is firm, but not rigid. There is no guarding or rebound. It radi ates down both of his legs. There is no neurological weakness, no numbness or tingling. He did have difficulty urinating this morning and urine sample was collected via catheterization. PAST MEDICAL HISTORY: 1. Mantle cell lymphoma with progression to leukemia. 2. Tobacco use. PAST SURGICAL HISTORY: 1. Splenectomy. 2. Facial reconstruction. 3. MediPort placement. ALLERGIES: No known drug allergies. HOME MEDICATIONS: 1. Pepcid 20 mg b.i.d. 2. Duragesic patch 50 mcg every 3 days. 3. Hydrocodone 10/325 p.r.n. 4. MS Contin 30 mg q.12 hours. 5. Morphine IR 15 mg q.4 hours. FAMILY HISTORY: Noncontributory. SOCIAL HISTORY: , has 1 child. Lives with his mother. Current everyday smoker. No alcohol . He does use marijuana. REVIEW OF SYSTEMS: A 12 point review of systems is negative except for noted in HPI. PHYSICAL EXAMINATION: VITAL SIGNS: Temperature is 97.9, pulse is 104, respiratory rate 24, BP is 149/82, he is 96% on 2 li ters. GENERAL: This is a well-developed and well-nourished male. He is in moderate pain. HEENT: Normocephalic, atraumatic. Pupils are equal and reactive to light. NECK: Supple. CARDIOVASCULAR: Regular rate and rhythm. He is tachycardic. LUNGS: Clear. ABDOMEN: Soft and tender to palpation in the right lower quadrant. There is no rebound or guarding. EXTREMITIES: No clubbing, cyanosis or edema. SKIN: No rash. HEMATOLOGICAL: No petechia or purpura. NEUROLOGICAL: Nonfocal. PSYCHIATRIC: Patient is alert and oriented and appropriate. PERTINENT LABORATORY DATA AND X-RAYS: Current WBCs are 14.5, hemoglobin 10.1, hematocrit 30.[address] atelet count is 28,000. He got 1% neutrophils, 37% lymphocytes. Sodium is 133, potassium 4.1, chlor vilma 91, CO2 is 27, BUN is 16, creatinine 0.82, lactic acid is 3.2, calcium 9.6, total bilirubin is 0. 7, AST is 28, ALT is 17, alkaline phosphatase is 282, serum total protein is 6.1, albumin 3.5, globul in 2.6, lipase is 54, uric acid is 7.3. Radiology per HPI. IMPRESSION: 1. Mantle cell lymphoma on Venetoclax. 2. Diffuse abdominal discomfort. 3. Dehydration. DISCUSSION: Patient has been started on IV fluids. His pain medications have been resumed. He will receive a dose of Toradol at this time for his pain. He did take his chemotherapy pill this morning . We will monitor him over the next 24 hours. Thank you for the consult.
--- NOTE | 2018-01-11 17:15 | HP ---
REASON FOR ADMISSION: Generalized abdominal pain starting from 3:00 p.m. yesterday. HISTORY OF PRESENT ILLNESS: The patient gives history of severe abdominal pain , which is more of a spasm-like, which comes on every 5-10 minutes from his umbilicus down extending up to his knees and ankle. He also has back pain and calf muscular pains as well. All of this started at 3:00 p.m. yesterday. The patient has known history of mantle cell lymphoma and is on chemotherapy. He had a white count of 125,000 on 12/27/2017, and currently, it is around 14. He has been receiving Venclexta from Tuesday on. In fact, the dose is supposed to be doubled up from today. No complaints of cough or expectoration. No complaints of urinary frequency or urgency. The patient states his urine is high colored at present. In fact, they had to do a straight catheterization to get a urine sample in the ER, as patient has not passed any urine from morning. PAST MEDICAL AND SURGICAL HISTORY: History of mantle cell lymphoma with recurrence, history of splenectomy done at [facility] in 2016, facial reconstruction surgery due to baseball accident when he was 17 years old. CURRENT MEDICATIONS: Venclexta chemotherapy for his mantle cell lymphoma recurrence, Pepcid 20 mg twice daily, lidocaine patch 5% transdermal, morphine extended release 30 mg twice daily, morphine IR 15 mg p.o. q.4 hours p.r.n., DuoNeb q.6 hourly p.r.n., [place] 5/325 mg 1 tab q.4 hours p.r.n. ALLERGIES: No known drug allergies. PERSONAL HISTORY: The patient continues to smoke 10-12 cigarettes a day. Does not abuse alcohol or drugs. FAMILY HISTORY: Mother is healthy. Father at the age of 84 years. He has had history of NM. REVIEW OF SYSTEMS: The following complete review of systems was negative, unless otherwise mentioned in the HPI or below: Constitutional: Weight loss or gain, ability to conduct usual activities. Skin: Rash, itching. Eyes: Double vision, pain. ENT/Mouth: Nose bleeding, neck stiffness, pain, tenderness. Cardiovascular: Palpitations, dyspnea on exertion, orthopnea. Respiratory: Shortness of breath, wheezing, cough, hemoptysis, fever, or night sweats. Gastrointestinal: Poor appetite, abdominal pain, heartburn, nausea, vomiting, constipation, or diarrhea. Genitourinary: Urgency, frequency, dysuria, nocturia. Musculoskeletal: Pain, swelling. Neurologic/Psychiatric: Anxiety, depression. Allergy/Immunologic: Skin rash, bleeding tendency. CODE STATUS: FULL. Power of civil attorney is both mom and brother. PHYSICAL EXAMINATION: GENERAL: The patient is a 57-year-old male, who is currently in moderate distress from abdominal pain. VITAL SIGNS: Blood pressure 116/72, pulse 116 per minute, respiratory rate 30 per minute, temperature 97.6 degrees Fahrenheit, saturating 97% on room air. NECK: Supple, no elevated JVD. HEENT: Extraocular muscles intact. Pupils reacting to light. Oral cavity, mucous membranes are dry. No exudates or congestion. CARDIOVASCULAR SYSTEM: S1 are S2 heard. Regular rhythm. RESPIRATORY SYSTEM: Air entry 2+ bilateral. Scattered rhonchi plus no rales or wheezes. ABDOMEN: Soft, bowel sounds heard. The patient appears to be having voluntary guarding. No obvious rigidity seen. Bowel sounds are heard. EXTREMITIES: No peripheral edema or calf tenderness. VASCULAR SYSTEM: Peripheral pulses 1+ bilateral, no ischemic ulcerations or gangrene. CENTRAL NERVOUS SYSTEM: No gross focal deficits seen. Patient is alert and oriented well. PSYCHIATRIC SYSTEM: The patient's mood is euthymic. No hallucinations or delusions. LABORATORY AND X-RAY FINDINGS: White count of 14, H and H 10 and 30, platelet count is 28, MCV is 93 with 37% lymphocytes, 1% neutrophils, 6% monocytes, 3% metamyelocytes, and 50% other cells type. He also has 2-5 schistocytes seen. Serum sodium 133, serum chloride 91, bicarbonate is 27, BUN 16, creatinine 0.8, serum glucose is 110. Lactic acid is 6.3, total bilirubin 0.7, alkaline phosphatase is 282, albumin is 3.5. Lipase is 54. UA shows trace blood with 4- [address] of the abdomen and pelvis with IV and oral contrast done shows bilateral pleural effusions, large right renal mass at the superior pole, malignancies favored. This measures 7.4 x 6.9 x 5.1 cm. There is also retroperitoneal adenopathy. Chest x-ray done shows a new density in the right lung base with. CLINICAL IMPRESSION AND PLAN: The patient will be under observation on oncology floor for severe abdominal and muscular spasms the way he describes up to his ankle. He has had similar pains in the past, but this has gotten worse from 3:00 p.m. In the ER, the patient received Dilaudid a total of 2 mg along with a liter of bolus fluid, Zofran. None of this seemed to have helped him. We will place him on normal saline at 100mls per hour. Serum uric acid level is pending at present. The patient had a severely elevated white count of up to 125,000 and this has come down to 14,000 at present. Venclexta appears to have been working well for him at present. We will continue him on morphine IR and extended release, along with a fentanyl patch and lidocaine patch as well. If needed, Toradol will be used keeping a close eye on his platelet count. He will also be on DuoNeb p.r.n. as well. We will continue to closely monitor him on oncology floor. If patient's pain and spasms were to continue, he will be switched over to inpatient status and also if his uric acid levels are high. Looking at his bicarbonate level and renal function, does not appear to be in tumor lysis syndrome, but nevertheless the uric acid level is still pending at present. We will closely monitor the number. Code status was discussed and he is FULL CODE. KAYLENED
[2018-01-11] MEDS ORDERED: Famotidine 20 MG TAB PO SCH (21:00)
[2018-01-11] MEDS: Morphine ER 30 MG TAB PO SCH (21:00)
[2018-01-12] MEDS: Sodium Chloride 0.9% 1,000 ML IV SCH ×3 (00:53→22:53)
[2018-01-12] MEDS: Morphine IR Tab 15 MG TAB PO PRN (02:17)
[2018-01-12] MEDS: Ketorolac Tromethamine 30 MG/ML VIAL IVP PRN ×2 (03:45→12:03)
[2018-01-12] MEDS: Lidocaine Patch Removal 1 EACH TOP SCH (03:51)
[2018-01-12 05:07] LABS: Hemoglobin 8.3 g/dL (14.0-18.0); Mean Corpuscular HGB CONC 34.5 g/dL (32.0-36.0); Mean Corpuscular Hemoglobin 31.3 pg (27.0-31.0); Mean Corpuscular Volume 90.6 fl (80.0-94.0); Mean Platelet Volume 10.4 fL (7.4-10.4); Platelet Count 20 thou/uL (130-400); Red Blood Cell (RBC) Count 2.64 mill/uL (4.70-6.10); White Blood Cell (WBC) Count 15.3 thou/uL (4.8-10.8)
[2018-01-12 05:23] LABS: ALT (SGPT) 16 U/L (8-55); AST (SGOT) 33 U/L (5-34); Albumin 3.1 g/dL (3.5-5.0); Alkaline Phosphatase 283 U/L (40-150); Anion Gap 13 mmol/L (10-20); BUN (Urea Nitrogen) 18 mg/dL (8.4-25.7); Bilirubin, Total 0.7 mg/dL (0.2-1.2); Calc. Creatinine Clearance 92 mL/min (70-130); Calcium 9.2 mg/dL (7.8-10.44); Carbon Dioxide 29 mmol/L (22-29); Chloride 96 mmol/L (98-107); Estimated GFR-MDRD Greater than 90; Globulin 2.2 g/dL (2.4-3.5); Glucose 76 mg/dL (70-105); Potassium 4.5 mmol/L (3.5-5.1); Protein, Total 5.3 g/dL (6.0-8.3); Sodium 133 mmol/L (136-145)
[2018-01-12 05:24] LABS: Lymphocytes 51 % (21-51); MDiff Complete? YES; Metamyelocyte 5 % (0-0); Monocytes 8 % (0-10); Myelocyte 3 % (0-0); Neutrophil 1 % (42-75); PLT Morphology Comment Appears Decreased
[2018-01-12] MEDS: Morphine ER 30 MG TAB PO SCH ×2 (08:18→21:05)
[2018-01-12] MEDS ORDERED: Dexamethasone 10 MG in Sodium Chloride 0.9% 50 ML IVPB SCH (11:00)
--- NOTE | 2018-01-12 15:12 | PDOC.PN ---
- Subjective Encounter Start Date: 01/12/18 Encounter Start Time: 13:00 Subjective: still has abd pain but better now - Objective Resuscitation Status: Resuscitation Status FULL:Full Resuscitation MAR Reviewed: Yes Vital Signs & Weight: Vital Signs (12 hours) Temp Pulse Resp BP BP BP Pulse Ox 01/12/18 13:28 109 H 18 95 01/12/18 13:08 95 01/12/18 08:12 98.4 F 108 H 18 126/74 95 01/12/18 08:09 98.4 F 108 H 18 126/74 95 01/12/18 07:40 98.4 F 108 H 18 126/74 95 01/12/18 06:42 105 H 18 95 01/12/18 04:00 98.0 F 118 H 20 126/62 95 Weight Weight 136 lb I&O: 01/11/18 01/12/18 01/13/18 06:59 06:59 06:59 Intake Total 1640 Balance 1640 Result Diagrams: 01/12/18 04:54 01/12/18 04:54 Phys Exam - Physical Examination HEENT: PERRLA, sclera anicteric Neck: no JVD, supple Respiratory: no wheezing, no rales Cardiovascular: RRR, no significant murmur Gastrointestinal: soft, no distention, positive bowel sounds Musculoskeletal: no edema, pulses present Neurological: non-focal, moves all 4 limbs Psychiatric: normal affect, A&O x 3 Dx/Plan (1) Abdominal pain Code(s): R10.9 - UNSPECIFIED ABDOMINAL PAIN Status: Acute Comment: b/l lower quadrants with radiation to both LE (2) Thrombocytopenia Code(s): D69.6 - THROMBOCYTOPENIA, UNSPECIFIED Status: Chronic (3) COPD (chronic obstructive pulmonary disease) Status: Chronic Qualifiers: COPD type: chronic bronchitis Chronic bronchitis type: unspecified Qualified Code(s): J42 - Unspecified chronic bronchitis (4) Mantle cell lymphoma Code(s): C83.10 - MANTLE CELL LYMPHOMA, UNSPECIFIED SITE Status: Chronic Comment: recurrence on chemo - Plan hemostable -: he is getting MRI of lumbar spine today -: pain control with fentanyl patch, lidocaine patch, MS contin and IR morphin -: wbc is 16k -: seems to have responding well to current chemo agent * . change status to inpt for better pain control and stabilization uric acid is 5.4 with no sign of tumor lysis syndrome. May dc in am if pain is controlled well. Review of Systems - Medications/Allergies Allergies/Adverse Reactions: Allergies Allergy/AdvReac Type Severity Reaction Status Date / Time No Known Allergies Allergy Verified 01/11/18 15:36 Medications: Current Medications Acetaminophen (Tylenol) 650 mg PO Q4H PRN PRN Reason: Headache/Fever or Pain Hydrocodone Bitart/Acetaminophen (Potter 5/325) 1 tab PO Q4H PRN PRN Reason: Moderate Pain (4-6) Last Admin: 01/12/18 00:39 Dose: 1 tab Albuterol/Ipratropium (Duoneb) 3 ml NEB [id number] [facility] Last Admin: 01/12/18 13:28 Dose: 3 ml Dexamethasone (Decadron) 4 mg PO BID-WM [facility] Fentanyl (Duragesic) 50 mcg TD Q3D [facility] Last Admin: 01/11/18 15:01 Dose: 50 mcg Guaifenesin/Dextromethorphan (Robitussin Dm) 15 ml PO Q4H PRN PRN Reason: Cough Sodium Chloride (Normal Saline 0.9%) 1,000 mls @ 100 mls/hr IV .Q10H [facility] Last Admin: 01/12/18 11:20 Dose: 1,000 mls Ketorolac Tromethamine (Toradol) 15 mg IVP Q6H PRN PRN Reason: Severe Pain (7-10) Stop: 01/16/18 15:16 Last Admin: 01/12/18 12:03 Dose: 15 mg Lidocaine (Lidoderm 5% Patch) 1 patch TD Q24H PRN PRN Reason: Pain Last Admin: 01/11/18 15:01 Dose: 1 patch Miscellaneous Medication (Lidocaine Patch Removal) 1 each TOP 0301 [facility] Last Admin: 01/12/18 03:51 Dose: 1 each Morphine Sulfate (Ms Contin) 30 mg PO Q12HR [facility] Last Admin: 01/12/18 08:18 Dose: 30 mg Morphine Sulfate (Morphine Ir Tab) 15 mg PO Q4H PRN PRN Reason: Moderate to Severe Pain (6-10) Last Admin: 01/12/18 02:17 Dose: 15 mg Ondansetron HCl (Zofran) 4 mg IVP Q6H PRN PRN Reason: Nausea/Vomiting Senna (Senokot) 2 tab PO HSPRN PRN PRN Reason: Constipation Sodium Chloride (Flush - Normal Saline) 10 ml IVF Q12HR [facility] Last Admin: 01/12/18 09:27 Dose: Not Given Sodium Chloride (Flush - Normal Saline) 10 ml IVF PRN PRN PRN Reason: Saline Flush Zolpidem Tartrate (Ambien) 5 mg PO HSPRN PRN PRN Reason: Insomnia
[2018-01-12] MEDS: Dexamethasone 1 MG TAB PO SCH (16:37)
[2018-01-13] MEDS: Lidocaine Patch Removal 1 EACH TOP SCH ×2 (04:56→22:18)
[2018-01-13] MEDS: Morphine ER 30 MG TAB PO SCH ×2 (08:36→21:00)
[2018-01-13] MEDS: Dexamethasone 1 MG TAB PO SCH ×2 (08:36→17:08)
[2018-01-13] MEDS: Sodium Chloride 0.9% 1,000 ML IV SCH ×3 (09:22→20:46)
--- NOTE | 2018-01-13 19:08 | PDOC.PN ---
- Subjective Encounter Start Date: 01/13/18 Encounter Start Time: 19:00 Subjective: f/u abd pain with hx of Mantle cell lymphoma. Currently pain improved -: and nursing reports pt going outside to smoke each hour. Pt stating -: he is pain free currently. - Objective Resuscitation Status: Resuscitation Status FULL:Full Resuscitation MAR Reviewed: Yes Vital Signs & Weight: Vital Signs (12 hours) Temp Pulse Resp BP Pulse Ox 01/13/18 18:21 116 H 18 95 01/13/18 08:00 97.9 F 127 H 28 H 01/13/18 07:24 97.9 F 127 H 28 H 148/73 H 100 Weight Weight 136 lb I&O: 01/12/18 01/13/18 01/14/18 06:59 06:59 06:59 Intake Total 1640 3890 Balance 1640 3890 Result Diagrams: 01/12/18 04:54 01/12/18 04:54 Radiology Reviewed by me: Yes (CT abd/pel - large R renal mass) Phys Exam - Physical Examination Constitutional: NAD smiling, ambulating in halls HEENT: PERRLA, oral pharynx no lesions Neck: no JVD, supple Respiratory: no wheezing, clear to auscultation bilateral Cardiovascular: RRR Gastrointestinal: soft, non-tender, no distention, positive bowel sounds Musculoskeletal: no edema, pulses present Neurological: normal sensation, moves all 4 limbs Psychiatric: A&O x 3 Skin: normal turgor, cap refill <2 seconds Dx/Plan (1) Abdominal pain Code(s): R10.9 - UNSPECIFIED ABDOMINAL PAIN Status: Acute Comment: b/l lower quadrants with radiation to both LE, resolved, continue current pain regimen (2) Elevated lactic acid level Code(s): E87.2 - ACIDOSIS Status: Acute Comment: Multifactorial, improved (3) Lymphoma Status: Chronic Qualifiers: Lymphoma type: non-Hodgkin Non-follicular lymphoma type: mantle cell Lymphoma site: spleen Comment: Plan to continue chemotx in the next week with outpt follow up with [facility] (4) Normocytic anemia Code(s): D64.9 - ANEMIA, UNSPECIFIED Status: Chronic Comment: stable, continue to monitor on current chemo regimen, no need for transfusion currently (5) Thrombocytopenia Code(s): D69.6 - THROMBOCYTOPENIA, UNSPECIFIED Status: Chronic Comment: Stable trend on current chemotx, serial monitoring - Plan plan discussed w/ family, socially responsible investment adviser, out of bed/ambulate Stable currently -: Continue Dexamethasone 4mg BID -: Continue Fentanyl and Lidocaine patches -: Continue MS ER and IR -: Likely home in am 01/14/18 * .
[2018-01-14] MEDS: Dexamethasone 1 MG TAB PO SCH (07:47)
[2018-01-14] MEDS: Morphine ER 30 MG TAB PO SCH (07:47)
[2018-01-14] MEDS: fentaNYL 50 mcg/hour Patch TD SCH (11:21)
[2018-01-14 11:35] LABS: Band 3 % (5-11); Differential Comment Blast-Like Cell(s); Hemoglobin 6.2 g/dL (14.0-18.0); Lymphocytes 18 % (21-51); MDiff Complete? YES; Mean Corpuscular HGB CONC 34.5 g/dL (32.0-36.0); Mean Corpuscular Hemoglobin 31.1 pg (27.0-31.0); Mean Corpuscular Volume 90.3 fl (80.0-94.0); Mean Platelet Volume 11.2 fL (7.4-10.4); Metamyelocyte 2 % (0-0); Monocytes 2 % (0-10); Neutrophil 3 % (42-75); PLT Morphology Comment Appears Decreased; Platelet Count 11 thou/uL (130-400); RBC Distribution Width 12.8 % (11.5-14.5); White Blood Cell (WBC) Count 15.8 thou/uL (4.8-10.8)
[2018-01-14 15:55] VITALS: BP 138/83; TEMP 97.6
--- NOTE | 2018-01-15 11:15 | PDOC.PN ---
- Subjective Encounter Start Date: 01/14/18 Encounter Start Time: 11:00 Patient een today, alert and oriented. has low plaletelts, Informed by nurse. - Objective Resuscitation Status: Resuscitation Status FULL:Full Resuscitation MAR Reviewed: Yes Vital Signs & Weight: Weight Weight 136 lb I&O: 01/14/18 01/15/18 01/16/18 06:59 06:59 06:59 Intake Total 237 250 Balance 237 250 Result Diagrams: 01/14/18 11:09 01/12/18 04:54 Radiology Reviewed by me: Yes Phys Exam - Physical Examination HEENT: PERRLA Neck: no nodes Respiratory: no wheezing, no rales Cardiovascular: RRR, no significant murmur Gastrointestinal: soft, non-tender Musculoskeletal: no edema, pulses present Lymphatic: no nodes Psychiatric: normal affect, A&O x 3 Dx/Plan (1) Abdominal pain Code(s): R10.9 - UNSPECIFIED ABDOMINAL PAIN Status: Acute Comment: b/l lower quadrants with radiation to both LE, resolved, continue current pain regimen (2) Anemia Code(s): D64.9 - ANEMIA, UNSPECIFIED Status: Acute (3) Elevated lactic acid level Code(s): E87.2 - ACIDOSIS Status: Acute Comment: Multifactorial, improved (4) Splenomegaly Code(s): R16.1 - SPLENOMEGALY, NOT ELSEWHERE CLASSIFIED Status: Acute (5) COPD (chronic obstructive pulmonary disease) Status: Chronic Qualifiers: COPD type: chronic bronchitis Chronic bronchitis type: unspecified Qualified Code(s): J42 - Unspecified chronic bronchitis Comment: Well controlled with Nebs, No exacerbation (6) Lymphoma Status: Chronic Qualifiers: Lymphoma type: non-Hodgkin Non-follicular lymphoma type: mantle cell Lymphoma site: spleen Comment: Plan to continue chemotx in the next week with outpt follow up with [facility] (7) Thrombocytopenia Code(s): D69.6 - THROMBOCYTOPENIA, UNSPECIFIED Status: Chronic Comment: Low plaletes today, planned Transfusion by Dr. Garibay today., plan to discharge per oncology. - Plan cont current plan of care, PT/OT, social service director, respiratory therapy, incentive spirometry * . - Discharge Day Encounter end time: 11:35 Review of Systems - Review of Systems Eyes: negative: Pain, Vision Change, Conjunctivae Inflammation, Eyelid Inflammation, Redness, Other ENT: negative: Ear Pain, Ear Discharge, Nose Pain, Nose Discharge, Nose Congestion, Mouth Pain, Mouth Swelling, Throat Pain, Throat Swelling, Other Respiratory: negative: Cough, Dry, Shortness of Breath, Hemoptysis, SOB with Excertion, Pleuritic Pain, Sputum, Wheezing Cardiovascular: negative: chest pain, palpitations, orthopnea, paroxysmal nocturnal dyspnea, edema, light headedness, other Gastrointestinal: negative: Nausea, Vomiting, Abdominal Pain, Diarrhea, Constipation, Melena, Hematochezia, Other Genitourinary: negative: Dysuria, Frequency, Incontinence, Hematuria, Retention , Other Musculoskeletal: negative: Neck Pain, Shoulder Pain, Arm Pain, Back Pain, Hand Pain, Leg Pain, Foot Pain, Other - Medications/Allergies Allergies/Adverse Reactions: Allergies Allergy/AdvReac Type Severity Reaction Status Date / Time No Known Allergies Allergy Verified 01/11/18 15:36
== END 2018-01-14 16:17 | disposition home or self-care (01) | DRG 841 ==
LOC: ERS 08:24 → OBSVTOIN 13:06 → ONC 13:06
PROVIDERS: ADMIT Internal Medicine; ATTEND Internal Medicine
DX: C83.10 Mantle cell lymphoma, unspecified site (principal); E87.2 Acidosis; D69.6 Thrombocytopenia, unspecified; D70.9 Neutropenia, unspecified; E86.0 Dehydration; F17.210 Nicotine dependence, cigarettes, uncomplicated; D64.9 Anemia, unspecified; R16.1 Splenomegaly, not elsewhere classified; J42 Unspecified chronic bronchitis; R10.84 Generalized abdominal pain
CPT/HCPCS: 36415; 36430; 51701; 71045; 74177; 80053; 81003; 81015; 83605; 83615; 83690; 84550; 85025; 86850; 86900; 86901; 87040; 94640; 96361; 96365; 96367; 96375; 96376; A4216; J1100; J1170; J1642; J1885; J2405; J2543; J3370; J7050; J7620; J8540; P9035

== ENCOUNTER 2018-01-15 13:45 | Inpatient (IN) | payer SELFPAY ==
[~2018-01-15 13:45] MED LIST: Heparin 1,000 UNITS/ML VIAL ONE
[2018-01-15 14:21] LABS: Hemoglobin 5.8 g/dL (14.0-18.0); Mean Corpuscular HGB CONC 34.8 g/dL (32.0-36.0); Mean Corpuscular Hemoglobin 31.1 pg (27.0-31.0); Mean Corpuscular Volume 89.4 fl (80.0-94.0); Mean Platelet Volume 9.8 fL (7.4-10.4); Platelet Count 68 thou/uL (130-400); RBC Distribution Width 12.7 % (11.5-14.5); Red Blood Cell (RBC) Count 1.85 mill/uL (4.70-6.10); White Blood Cell (WBC) Count 7.4 thou/uL (4.8-10.8)
[2018-01-15 14:31] LABS: ALT (SGPT) 23 U/L (8-55); AST (SGOT) 32 U/L (5-34); Alkaline Phosphatase 285 U/L (40-150); Anion Gap 15 mmol/L (10-20); BUN (Urea Nitrogen) 23 mg/dL (8.4-25.7); Bilirubin, Total 0.9 mg/dL (0.2-1.2); CK (CPK) 116 U/L (30-200); Calc. Creatinine Clearance 0 mL/min (70-130); Calcium 8.3 mg/dL (7.8-10.44); Carbon Dioxide 25 mmol/L (22-29); Chloride 91 mmol/L (98-107); Estimated GFR-MDRD Greater than 90; Globulin 1.9 g/dL (2.4-3.5); Glucose 82 mg/dL (70-105); Lipase 38 U/L (8-78); Potassium 4.1 mmol/L (3.5-5.1); Protein, Total 4.9 g/dL (6.0-8.3); Sodium 127 mmol/L (136-145)
[2018-01-15 14:35] LABS: CKMB 2.6 ng/mL (0-6.6); Troponin I 0.042 ng/mL (< 0.028)
[2018-01-15 14:44] LABS: Howell Jolly Bodies SLIGHT = 1-2 cells (100X) (None Seen); Lymphocytes 15 % (21-51); MDiff Complete? YES; Metamyelocyte 1 % (0-0); Monocytes 1 % (0-10); Neutrophil 6 % (42-75); Nucleated RBC 2 % (0); Ovalocytes SLIGHT = 2-5 cells (100X) (0-1/hpf); PLT Morphology Comment Appears Decreased; Polychromasia SLIGHT = 2-3 cells (100X) (0-2/hpf); Target Cells SLIGHT = 2-5 cells (100X) (0-1/hpf)
--- NOTE | 2018-01-15 14:52 | RAD ---
CHEST 1 VIEW: Date: 01/15/18 HISTORY: Fever. COMPARISON: 01/11/18. FINDINGS: Cardiac silhouette is magnified by projection. Pulmonary vasculature is unremarkable. Patchy infiltra te at the right base has progressed slightly. Infiltrate is now present at the left base. Mediastinum is midline with a right subclavian Port-A-Cath. No evidence of pneumothorax. crew lead leads o verlie the chest. IMPRESSION: Worsening bibasilar infiltrates. Clinical correlation regarding other signs and symptoms of bibasilar pneumonitis is required. POS: [facility]
[2018-01-15] MEDS ORDERED: Cefepime 2 GM, Syringe 2.5 ML in Sodium Chloride 0.9% 10 ML SLOW IVP SCH (15:00)
[2018-01-15] MEDS ORDERED: Artificial Tears 18 DROP/0.9 ML EA EYE PRN (16:09)
[2018-01-15] MEDS ORDERED: Acetaminophen 325 MG TAB PO PRN (16:09)
[2018-01-15] MEDS ORDERED: Sodium Chloride 0.65% Nasal 44 ML BOT EA NARE PRN (16:09)
[2018-01-15] MEDS ORDERED: Ondansetron ODT 4 MG TAB PO PRN (16:09)
[2018-01-15] MEDS ORDERED: Loratadine 10 MG TAB PO PRN (16:09)
[2018-01-15] MEDS ORDERED: Mag-Al 1200 mg/1200 mg/30 ML UDCUP PO PRN (16:09)
[2018-01-15] MEDS ORDERED: Loperamide HCl 2 MG CAP PO PRN (16:09)
[2018-01-15] MEDS ORDERED: Ondansetron HCl/PF 4 MG/2 ML Vial IVP PRN (16:09)
[2018-01-15] MEDS ORDERED: Eucerin (Mineral Oil/Petrolatum,White) 30 gm Jar TOP PRN (16:09)
[2018-01-15] MEDS ORDERED: Milk Of Magnesia 30 ML UDCUP PO PRN (16:09)
[2018-01-15] MEDS ORDERED: Labetalol HCl 100 MG/20 ML VIAL SLOW IVP PRN (16:09)
[2018-01-15] MEDS ORDERED: HYDROcodone/Acetaminophen 10/325 mg Tablet PO PRN (16:09)
[2018-01-15] MEDS ORDERED: Chloraseptic Spray 180 ml Bottle PO PRN (16:09)
[2018-01-15] MEDS ORDERED: Diabetic Tussin 200 MG/10 ML UDCUP PO PRN (16:09)
[2018-01-15] MEDS ORDERED: Senokot 8.6 MG TAB PO PRN (16:09)
[2018-01-15] MEDS ORDERED: Sodium Chloride 0.9% 1,000 ML IV SCH (16:15)
[2018-01-15] MEDS ORDERED: Acetaminophen 325 MG TAB ONE (17:12)
--- NOTE | 2018-01-15 17:17 | HP ---
DATE OF SERVICE: 01/15/2018 PRIMARY CARE PHYSICIAN: Bouchra Garibay M.D. REASON FOR ADMISSION: Acute febrile illness, sepsis. HISTORY OF PRESENT ILLNESS: A 57-year-old male who was recently admitted in our hospital on 01/12/20 18. At that time, patient came to hospital with a generalized abdominal pain. The patient had a CT of the abdomen and pelvis which showed bilateral pleural effusion and large right renal mass and conf luent retroperitoneal lymphadenopathy. The patient stayed in hospital until 01/14/2018. During that admission, patient was afebrile and patient was doing very well subjectively, he was ambulatory, michael erating p.o. well, and his pain was controlled and patient was discharged by primary oncologist. On the day of discharge, Dr. Soto saw this patient, but after that patient was discharged by oncologist . On the day of discharge, patient's platelet count was 11 and today platelet count is 68. On the d ay of discharge, his hemoglobin was 6.2 and today hemoglobin is 5.8. Patient's family member reports that he is taking chemotherapy pill daily in the morning. He had a high grade fever with chills and altered mental status at home during nighttime and he became very weak. In the emergency room, he w as tachycardic with pulse 136, tachypneic with a respiratory rate of 24 and febrile with a temperatur e 102 and he was also saturating 87% on the room air. This morning, chest x-ray showed worsening of bibasilar infiltration and today he has lactic acidosis, elevated troponin and hyponatremia. Patient is also confused, though he is able to answer a few questions. Patient was having chills and rigor at home. At this point, we are admitting this patient in hospital for further evaluation and treatme nt. ALLERGIES: No known drug allergy. CURRENT HOME MEDICATIONS: As per our hospital record, the patient is on following medication: Pepci d 20 mg b.i.d., Duragesic patch 50 mcg every 3 days, [place] 5 one or two tablets q.4 hourly p.r.n., Du oNeb q.6 hourly p.r.n., lidocaine patch daily, morphine sulfate ER 30 mg p.o. twice daily and morphin e sulfate IR 15 mg q.4 hourly p.r.n. The patient is on oral chemotherapeutic pill, Venclexta 50 mg p .o. daily. REVIEW OF SYSTEMS: The following complete review of systems was negative, unless otherwise mentioned in the HPI or below: Constitutional: Weight loss or gain, ability to conduct usual activities. Skin: Rash, itching. Eyes: Double vision, pain. ENT/Mouth: Nose bleeding, neck stiffness, pain, tenderness. Cardiovascular: Palpitations, dyspnea on exertion, orthopnea. Respiratory: Shortness of breath, wheezing, cough, hemoptysis, fever or night sweats. Gastrointestinal: Poor appetite, abdominal pain, heartburn, nausea, vomiting, constipation, or diarr hea. Genitourinary: Urgency, frequency, dysuria, nocturia. Musculoskeletal: Pain, swelling. Neurologic/Psychiatric: Anxiety, depression. Allergy/Immunologic: Skin rash, bleeding tendency. Please see my HPI for pertinent positive and negative. All other review of systems reviewed and nega tive except as mentioned in the HPI. PAST MEDICAL HISTORY: Mantle cell lymphoma, on oral chemotherapy with recurrence. PAST SURGICAL HISTORY: Splenectomy, facial reconstruction surgery due to baseball accident when he w as 17 years old. PAST PSYCHIATRIC HISTORY: Reviewed and negative. ALLERGIES: No known drug allergy. SOCIAL HISTORY: The patient has history of smoking about 10-12 cigarettes a day. He does not have a ny alcohol or other illicit drug abuse. FAMILY HISTORY: Mother is healthy, father by age of 84 years from coronary artery disease. EMERGENCY ROOM COURSE: The patient is receiving 2 units of PRBC, aspirin 324 mg, cefepime 2 gram, va ncomycin 1 gram, and IV fluid. PHYSICAL EXAMINATION: VITAL SIGNS: Currently, blood pressure 115/65, pulse 136, respiratory rate 24, temperature 102.0, sa turation 87% on room air, weight 61.6 kilograms. GENERAL: Patient is currently febrile, tachycardic, and tachypneic, mild distress. HEAD: Normocephalic, atraumatic. EYES: Pupils round, reactive to light. Extraocular muscle intact. No nystagmus. ENT: Dry mucous membrane, no oral lesion, no pharyngeal erythema, no exudate. NECK: Supple, no JVD, no thyromegaly, no carotid bruit. LUNGS: Bibasilar rales noted, bronchial breath sound heard. No wheezing, no rhonchi, no accessory m uscles of respiration in use. CARDIAC: S1, S2 regular, tachycardia, no murmur, no gallop, no rub. ABDOMEN: Soft, bowel sounds present, nontender, nondistended. No organomegaly, no mass, no suprapub ic tenderness. Mild diffuse abdominal discomfort noted, but no peritoneal sign, no guarding, no rigi dity, no rebound. BACK: Unremarkable, no CVA tenderness. EXTREMITIES: Upper extremity: Passive movement of all joints are normal. Lower extremities: No ed andrew. Good peripheral pulsation, no calf tenderness. SKIN: No skin rash. Warm to touch. HEMATOLOGICAL: No lymphadenopathy. NEUROLOGIC: Patient is alert, awake. Follows simple command, appears slightly confused. No cerebel lar signs. Motor and sensation within normal limits. He is moving all four limbs. Speech normal. SIGNIFICANT LABORATORY DATA: EKG showing sinus tachycardia. Chest x-ray showing worsening of bibasi lar infiltration. CBC: WBC 7.4, hemoglobin 5.8, platelet count 68. BMP: Sodium 127, potassium 4.1 , chloride 91, carbon dioxide 25, anion gap 15, BUN 23, creatinine 0.76, glucose 82, calcium 8.3. LF T: AST 32, ALT 23, alkaline phosphatase 285, albumin 3.0. BNP 699.8. Lactic acid 4.4. CK 116, CK- MB 2.6, troponin 0.042. ASSESSMENT AND PLAN: 1. Acute encephalopathy, likely due to underlying sepsis as well as metabolic parameters with hypona tremia, hypochloremia, anemia, lactic acidosis contributing to his confusion with acute febrile illne ss. We will treat underlying infection and we will monitor in hospital. He does not have any focal neurological deficit. We will try to correct metabolic parameters as well. 2. Sepsis with acute organ dysfunction. He has encephalopathy and he has sepsis criteria with lacti c acidosis, with elevated troponin. The patient meets acute organ dysfunction criteria. Patient andrea l be given broad-spectrum antibiotic therapy with cefepime, vancomycin, and levofloxacin. We will fo llow up on culture result and titrate antibiotic therapy based on culture result. Source of infectio n is most likely healthcare-associated pneumonia as well as suspecting MediPort infection, bacteremia is also suspected. Patient will need more than 2-midnight hospitalization. 3. Healthcare-associated pneumonia. The patient has bibasilar infiltration, which is getting worse. He is also having hypoxic respiratory failure. He will be given broad-spectrum antibiotic therapy with cefepime, Levaquin, vancomycin and we will follow up on culture result and monitor closely. 4. Acute hypoxic respiratory failure. Patient will be given oxygen to maintain saturation above 92% . Patient will be observed closely in IMCU. This is related with the pneumonia and this patient als o has underlying chronic diastolic heart failure and that is why we will watch for any fluid overload status. 5. Demand ischemia of myocardium. We will do serial cardiac enzymes x3 to rule out acute coronary s yndrome. 6. Hyponatremia, hypochloremia. At this point, we will monitor sodium. 7. Symptomatic anemia. The patient will be given 2 units of blood transfusion and we will repeat a CBC tomorrow. 8. Thrombocytopenia. We will avoid any heparin products because of low platelet count. Currently, platelet count is stable and improved from yesterday. 9. Mantle cell lymphoma. Oncology team again will be consulted for their opinion. Patient will con tinue his oral chemotherapeutic pills if the patient is stable from infection point of view. 10. Chronic diastolic heart failure. We will watch for any fluid overload status. At this point, t he patient is not suspected for any fluid overload status. He is going to get blood transfusion and we will monitor oxygen saturation as well. 11. Chronic pain disorder. We will control his pain with morphine 4 mg every 4 hourly p.r.n. basis. 12. Deep venous thrombosis prophylaxis. Sequential compression device boots only. 13. Gastrointestinal prophylaxis. Pepcid 20 mg IV b.i.d. 14. Code status: The patient is full code. Patient's mother is surrogate decision maker. Disposition plan based on clinical course. We are expecting patient's stay in hospital more than 2 m idnights. Plan of care discussed with the patient's family member at bedside in the emergency room.
[2018-01-15 18:18] LABS: Lactic Acid 2.2 mmol/L (0.5-2.2)
[2018-01-15 18:33] LABS: CKMB 1.7 ng/mL (0-6.6); Troponin I 0.108 ng/mL (< 0.028)
[2018-01-15 20:05] VITALS: BMI 21.3
[2018-01-15] MEDS: Cefepime 2 GM in Sodium Chloride 0.9% 100 ML IVPB SCH (20:49)
[2018-01-15] MEDS: Sodium Chloride 0.9% 1,000 ML IV SCH (20:50)
[2018-01-15] MEDS: Dexamethasone 4 MG TAB PO SCH (21:07)
[2018-01-15] MEDS: Morphine 4 MG/ML VIAL SLOW IVP PRN (21:08)
[2018-01-15] MEDS: Famotidine 20 MG TAB PO SCH (21:08)
[2018-01-15 21:30] LABS: CKMB 2.4 ng/mL (0-6.6)
[2018-01-16] MEDS: Morphine 4 MG/ML VIAL SLOW IVP PRN ×3 (01:05→14:21)
[2018-01-16] MEDS: Vancomycin HCl 1 GM in Premix Bag 1 BAG IVPB SCH ×2 (02:12→14:51)
[2018-01-16 02:31] LABS: Bilirubin Negative (Negative); Blood, Urine Negative (Negative); Clarity CLEAR (Clear); Glucose, Urine (Dipstick) Negative (Negative); Leukocyte Negative (Negative); Nitrite Negative (Negative); Protein, Urine (Dipstick) Negative (Neg-Trace); Specific Gravity, Urine 1.017 (1.002-1.036); pH, Urine 5.5 (5.0-9.0)
[2018-01-16 02:34] LABS: Bacteria/HPF None Seen HPF (None Seen); Hyaline Casts/LPF 0-3 HYALINE CAST LPF (0-3 Hyaline); RBC/HPF 0-3 HPF (0-3); Squamous Epithelial 0-3 HPF (0-3); WBC/HPF 0-3 HPF (0-3)
[2018-01-16] MEDS ORDERED: Cefepime 1 GM, Admixture Fee 1 EACH in Sodium Chloride 0.9% 10 ML SLOW IVP SCH (03:00)
[2018-01-16 04:17] LABS: Lactic Acid 2.3 mmol/L (0.5-2.2)
[2018-01-16 04:32] LABS: Band 1 % (5-11); Lymphocytes 29 % (21-51); MDiff Complete? YES; Mean Corpuscular HGB CONC 35.5 g/dL (32.0-36.0); Mean Corpuscular Hemoglobin 31.5 pg (27.0-31.0); Mean Corpuscular Volume 88.8 fl (80.0-94.0); Mean Platelet Volume 9.7 fL (7.4-10.4); Metamyelocyte 1 % (0-0); Monocytes 3 % (0-10); Myelocyte 1 % (0-0); Neutrophil 2 % (42-75); Nucleated RBC 3 % (0); PLT Morphology Comment Appears Decreased; Platelet Count 39 thou/uL (130-400); RBC Distribution Width 12.9 % (11.5-14.5); Red Blood Cell (RBC) Count 2.22 mill/uL (4.70-6.10)
[2018-01-16 04:34] LABS: Albumin 2.5 g/dL (3.5-5.0); Calcium 7.8 mg/dL (7.8-10.44); Chloride 97 mmol/L (98-107); Glucose 95 mg/dL (70-105); Potassium 4.3 mmol/L (3.5-5.1); Sodium 131 mmol/L (136-145)
[2018-01-16 04:35] LABS: Globulin 1.7 g/dL (2.4-3.5); Protein, Total 4.2 g/dL (6.0-8.3)
[2018-01-16 04:36] LABS: Bilirubin, Total 1.4 mg/dL (0.2-1.2); Carbon Dioxide 25 mmol/L (22-29)
[2018-01-16 04:37] LABS: Alkaline Phosphatase 261 U/L (40-150)
[2018-01-16 04:38] LABS: Calc. Creatinine Clearance 111 mL/min (70-130); Estimated GFR-MDRD Greater than 90
[2018-01-16 04:39] LABS: BUN (Urea Nitrogen) 16 mg/dL (8.4-25.7)
[2018-01-16 04:40] LABS: ALT (SGPT) 31 U/L (8-55); AST (SGOT) 59 U/L (5-34)
[2018-01-16 04:45] LABS: Anion Gap 11 mmol/L (10-20)
[2018-01-16] MEDS ORDERED: Lidocaine 5% Patch TD PRN (06:19)
[2018-01-16] MEDS: fentaNYL 50 mcg/hour Patch TD SCH (06:35)
[2018-01-16] MEDS: Dexamethasone 4 MG TAB PO SCH ×2 (08:22→21:31)
[2018-01-16] MEDS: Famotidine 20 MG TAB PO SCH ×2 (08:22→21:31)
[2018-01-16] MEDS: Morphine ER 15 MG TAB PO SCH ×2 (08:22→21:29)
[2018-01-16] MEDS: Saccharomyces boulardii 250 MG CAP PO SCH (08:25)
[2018-01-16] MEDS: VENCLEXTA PO SCH (08:25)
[2018-01-16] MEDS: Sodium Chloride 0.9% 1,000 ML IV SCH (08:27)
[2018-01-16] MEDS ORDERED: VENETOCLAX 50 MG PO SCH (09:00)
--- NOTE | 2018-01-16 09:46 | PDOC.PN ---
- Subjective Encounter Start Date: 01/16/18 Encounter Start Time: 08:20 -: old records requested/rev Patient seen and examined. No new complaints. No overnight events tachycardia controlled, no fever, eating well - Objective Resuscitation Status: Resuscitation Status FULL:Full Resuscitation MAR Reviewed: Yes Vital Signs & Weight: Vital Signs (12 hours) Temp Pulse Resp BP Pulse Ox 01/16/18 07:49 98.6 F 102 H 22 H 96/73 100 01/16/18 07:15 106 H 16 100 01/16/18 03:42 98.6 F 101 H 20 114/73 100 01/15/18 23:00 99.2 F 111 H 18 116/66 100 Weight Weight 145 lb 12.8 oz I&O: 01/15/18 01/16/18 01/17/18 06:59 06:59 06:59 Intake Total 1050 Output Total 1270 Balance -220 Result Diagrams: 01/16/18 03:43 01/16/18 03:43 EKG Reviewed by me: Yes (sinus tachycardia) Phys Exam - Physical Examination Constitutional: NAD HEENT: PERRLA, moist MMs, sclera anicteric Neck: no JVD, supple Respiratory: no wheezing, no rales, no rhonchi Cardiovascular: RRR, no significant murmur, no rub Gastrointestinal: soft, non-tender, no distention, positive bowel sounds Musculoskeletal: no edema, pulses present Neurological: non-focal, normal sensation, moves all 4 limbs Lymphatic: no nodes Psychiatric: normal affect Skin: no rash, normal turgor Dx/Plan (1) Acute respiratory failure with hypoxia Code(s): J96.01 - ACUTE RESPIRATORY FAILURE WITH HYPOXIA Status: Acute (2) Demand ischemia of myocardium Code(s): I24.8 - OTHER FORMS OF ACUTE ISCHEMIC HEART DISEASE Status: Acute (3) Encephalopathy acute Code(s): G93.40 - ENCEPHALOPATHY, UNSPECIFIED Status: Acute (4) Healthcare associated bacterial pneumonia Code(s): J15.9 - UNSPECIFIED BACTERIAL PNEUMONIA Status: Acute (5) Hyponatremia Code(s): E87.1 - HYPO-OSMOLALITY AND HYPONATREMIA Status: Acute (6) Lactic acidosis Code(s): E87.2 - ACIDOSIS Status: Acute (7) Sepsis with acute organ dysfunction Code(s): A41.9 - SEPSIS, UNSPECIFIED ORGANISM; R65.20 - SEVERE SEPSIS WITHOUT SEPTIC SHOCK Status: Acute (8) Symptomatic anemia Code(s): D64.9 - ANEMIA, UNSPECIFIED Status: Acute (9) COPD (chronic obstructive pulmonary disease) Status: Chronic Qualifiers: Comment: (10) Chronic diastolic (congestive) heart failure Code(s): I50.32 - CHRONIC DIASTOLIC (CONGESTIVE) HEART FAILURE Status: Chronic (11) Mantle cell lymphoma Code(s): C83.10 - MANTLE CELL LYMPHOMA, UNSPECIFIED SITE Status: Chronic Comment: recurrence on chemo (12) Thrombocytopenia Code(s): D69.6 - THROMBOCYTOPENIA, UNSPECIFIED Status: Chronic Comment: - Plan cont current plan of care, plan discussed w/ family, continue antibiotics * pt has been stabilized * DC IVF * transfer to oncology * continue cefepime, levaquin and vancomycin * follow culture * discussed with mother * medication reviewed as below * symptomatic treatment * monitor labs * echo today. Review of Systems - Review of Systems Constitutional: negative: fever, chills, sweats, weakness, malaise, other ENT: negative: Ear Pain, Ear Discharge, Nose Pain, Nose Discharge, Nose Congestion, Mouth Pain, Mouth Swelling, Throat Pain, Throat Swelling, Other Respiratory: negative: Cough, Dry, Shortness of Breath, Hemoptysis, SOB with Excertion, Pleuritic Pain, Sputum, Wheezing Cardiovascular: negative: chest pain, palpitations, orthopnea, paroxysmal nocturnal dyspnea, edema, light headedness, other Gastrointestinal: negative: Nausea, Vomiting, Abdominal Pain, Diarrhea, Constipation, Melena, Hematochezia, Other Genitourinary: negative: Dysuria, Frequency, Incontinence, Hematuria, Retention , Other Musculoskeletal: negative: Neck Pain, Shoulder Pain, Arm Pain, Back Pain, Hand Pain, Leg Pain, Foot Pain, Other Skin: negative: Rash, Lesions, [place], Bruising, Other - Medications/Allergies Allergies/Adverse Reactions: Allergies Allergy/AdvReac Type Severity Reaction Status Date / Time No Known Allergies Allergy Verified 01/11/18 15:36 Medications: Current Medications Acetaminophen (Tylenol) 650 mg PO Q4H PRN PRN Reason: Headache/Fever or Pain Hydrocodone Bitart/Acetaminophen ([place] 10/325) 1 tab PO Q4H PRN PRN Reason: Moderate Pain (4-6) Last Admin: 01/16/18 02:34 Dose: 1 tab Al Hydroxide/Mg Hydroxide (Maalox) 30 ml PO Q6H PRN PRN Reason: Heartburn or Indigestion Albuterol/Ipratropium (Duoneb) 3 ml NEB [id number] [facility] Last Admin: 01/16/18 07:15 Dose: 3 ml Artificial Tears (Tears Naturale) 0 drop EA EYE PRN PRN PRN Reason: Dry Eyes Dexamethasone (Decadron) 4 mg PO BID [facility] Stop: 01/19/18 09:01 Last Admin: 01/16/18 08:22 Dose: 4 mg Dexamethasone (Decadron) 4 mg PO DAILY [facility] Famotidine (Pepcid) 20 mg PO BID [facility] Last Admin: 01/16/18 08:22 Dose: 20 mg Fentanyl (Duragesic) 50 mcg TD Q3D [facility] Last Admin: 01/16/18 06:35 Dose: 50 mcg Guaifenesin (Robitussin Sf) 200 mg PO Q4H PRN PRN Reason: Cough Levofloxacin 750 mg/ Device 150 mls @ 100 mls/hr IVPB Q24HR [facility] Last Admin: 01/15/18 20:48 Dose: Not Given Vancomycin HCl 1 gm/ Device 200 mls @ 200 mls/hr IVPB 0200,1400 [facility] Last Admin: 01/16/18 02:12 Dose: 200 mls Cefepime HCl 1 gm/Miscellaneous Medication 1 each/ Sodium Chloride 10 mls @ 120 mls/hr SLOW IVP 0300,1500 [facility] Last Admin: 01/16/18 03:23 Dose: 10 mls Labetalol HCl (Normodyne) 20 mg SLOW IVP Q4H PRN PRN Reason: Systolic BP > 180 Lidocaine (Lidoderm 5% Patch) 1 patch TD DAILYPRN PRN PRN Reason: Pain Loperamide HCl (Imodium) 2 mg PO PRN PRN PRN Reason: Diarrhea/Loose Stools Loratadine (Claritin) 10 mg PO DAILYPRN PRN PRN Reason: Sinus Symptoms Magnesium Hydroxide (Milk Of Magnesium) 30 ml PO DAILYPRN PRN PRN Reason: Constipation Mineral Oil/White Petrolatum (Eucerin Cream) 0 gm TOP BIDPRN PRN PRN Reason: Dry Skin Miscellaneous Medication (Pharmacy To Dose) 1 each IVPB PRN PRN PRN Reason: Pharmacy to dose Morphine Sulfate (Morphine) 4 mg SLOW IVP Q4H PRN PRN Reason: Severe Pain (7-10) Last Admin: 01/16/18 05:16 Dose: 4 mg Morphine Sulfate (Ms Contin) 30 mg PO Q12HR [facility] Last Admin: 01/16/18 08:22 Dose: 30 mg Ondansetron HCl (Zofran Odt) 4 mg PO Q6H PRN PRN Reason: Nausea/Vomiting Ondansetron HCl (Zofran) 4 mg IVP Q6H PRN PRN Reason: Nausea/Vomiting 50 Mg Venclexta 0 each PO DAILY [facility] Last Admin: 01/16/18 08:25 Dose: 1 each Phenol (Chloraseptic [place] 180 Ml Bot) 0 ml PO PRN PRN PRN Reason: Sore Throat Saccharomyces Boulardii (Florastor) 250 mg PO DAILY [facility] Last Admin: 01/16/18 08:25 Dose: 250 mg Senna (Senokot) 2 tab PO HSPRN PRN PRN Reason: Constipation Sodium Chloride ([place] Nasal [place] 0.65%) 0 ml EA NARE QIDPRN PRN PRN Reason: Nasal Congestion Sodium Chloride (Flush - Normal Saline) 10 ml IVF PRN PRN PRN Reason: Saline Flush
--- NOTE | 2018-01-16 12:42 | CON ---
DATE OF CONSULTATION: 01/16/2018 REASON FOR CONSULTATION: Fever. HISTORY OF PRESENT ILLNESS: A 57-year-old patient who has a history of mantle cell lymphoma, initially diagnosed in 04/2016. He was initially treated with Imbruvica and there was improvement and stabilization for the past few months. He had undergone a splenectomy in the past as well for management of pancytopenia and marked splenomegaly. This was carried out in [facility] in [place]. In December he was noted to have a recrudescence of the lymphoma. The white cell count elevation of 125,000. This was associated with chest pain which worsened with deep breathing. CT scan of the chest showed no evidence of PE, but he did have a pleural based soft tissue density in the right middle lobe and a suprahilar lymph node. There was a mass in the superior pole of the right kidney as well. This measured 6 x 5 cm. He had been switched to Venclexta, which is a PDF inhibitor type drug. Apparently there has been some early response to this drug according to the patient's own recollection. The last admission was also related to exacerbation of pain in the lower extremities, which was felt to be associated with treatment for the lymphoma. After improvement in pain control he was released and is being readmitted yesterday with new onset of fever and some confusional state, weakness. He was brought in to the emergency room, he was tachycardic with a pulse 136, tachypneic with respiratory rate 24, temperature 102, O2 saturation 87%. Chest x-ray showed bibasilar infiltrates, some lactic acidosis was noted as well. Initial findings included a blood pressure 115/65, pulse 136, respiratory rate 24, and oral mucosa was dry. Lungs with bibasilar inspiratory crackles. Heart exam was normal except for tachycardia. Abdomen was soft, nontender, not distended. The extremities with normal findings. He was awake and alert, follows commands, a little bit confused. Initial laboratory data included a white cell count 7.4, hemoglobin 5.8, platelets 68, neutrophils 6%, bands were not detectable. His total neutrophil count was about 420 neutrophils and lymphocyte percentage 15, 2% nucleated RBCs and the other cell type was 77%. Currently, Mr. Merino is more comfortable. He is still a little bit diaphoretic and feels a bit uncomfortable at rest. Some headaches intermittently. No visual changes. No sore throat, odynophagia, dysphagia, no vomiting, no back pain. A little bit of cough, but not much, not much sputum production. No abdominal pain, no diarrhea, no genitourinary symptoms. He is voiding spontaneously. Intermittent pain in lower extremities , which is somewhat chronic. PAST MEDICAL HISTORY: Mantle cell lymphoma, currently on oral chemotherapy after recurrence with previous Imbruvica treatment, now venetoclax treatment. PAST SURGICAL HISTORY: Splenectomy, previous baseball accident when he was 17 years old which required facial reconstruction. The patient had a Port-A-Cath placed in the right subclavian location, it is still in place. ALLERGIES: None. FAMILY HISTORY: Noncontributory. HOME MEDICATIONS: Venclexta. CURRENT MEDICATIONS: Tylenol, Lynx, Maalox, DuoNeb, cefepime, Decadron, levofloxacin, ondansetron, vancomycin. PHYSICAL EXAMINATION: VITAL SIGNS: T-max 99.4. SKIN: Shows a peripheral IV access. He has a port in the right subclavian location without inflammatory changes. The port is accessed. No lymphadenopathy. A little bit diaphoretic. HEENT: Ocular movements conjugate. Oral cavity normal except for absence of inupiat teeth. NECK: Supple, jugular vein distention. LUNGS: With bibasilar crackles. CARDIOVASCULAR: S1, S2, without murmurs. No S3, S4. ABDOMEN: Soft and not distended or tender. No ascites. No bladder distention. EXTREMITIES: No joint inflammatory activity. Moves all extremities equally. NEUROLOGIC: Cognitive function appears to be intact. LABORATORY AND X-RAY FINDINGS: Urinalysis normal. White cell count 7.4 with a total neutrophil count around 420, hemoglobin 5.8, MCV 89, platelets 68,000. Sodium 131, creatinine 0.69, AST 59, ALT 31, alkaline phosphatase 261, albumin 2.5. Two out of 2 sets of blood cultures positive for Staphylococcus aureus which appears to methicillin susceptible. ASSESSMENT: 1. Mantle cell lymphoma which had been in remission with Imbruvica, now relapsed and the patient has been switched to venetoclax. 2. Recent admission with worsening chest pain. 3. Fever, basilar infiltrates and Staphylococcus aureus bacteremia which is methicillin susceptible bacteremia. DISCUSSION: Differential diagnosis includes a port colonization with Staphylococcus aureus and bacteremia, possible hematogenous dissemination to lungs. Other sites of involvement not yet ruled out. Cefepime is very active against Staphylococcus aureus and can be continued, eventually transitioned to cefazolin for continuation of therapy. The patient will need protracted treatment. He will need an echocardiogram. He probably will need removal of the port. Needs to repeat cultures in a few days 1 from the device and 1 from peripheral sample. Continue monitoring areas of involvement. MTDD
--- NOTE | 2018-01-16 14:08 | CON ---
DATE OF CONSULTATION: 01/16/2018 HISTORY OF PRESENT ILLNESS: Mr. Merino is a 57-year-old male. He was diagnosed with mantle cell lymphoma and then had successful remission, followed by relapse of mantle cell leukemia. His white count from my discussion with the oncologist was up over 100,000, it is now down to 7400 with his new treatment. He also has a renal mass. The workup for this is on hold given the urgent need to treat his leukemia. He presented yesterday afternoon with complaints of fever. He denies having a cough leading up to this. He is growing methicillin sensitive Staph out of his blood. He does have an indwelling port. PAST MEDICAL HISTORY: 1. Remarkable for a splenectomy. 2. History of facial surgery after an accident playing baseball when he was young. SOCIAL HISTORY: He is a smoker, smoking a half pack a day. He is a nondrinker , he does not use drugs. ALLERGIES: He has no drug allergies. FAMILY HISTORY: Positive for vascular disease. REVIEW OF SYSTEMS: Ten point review of systems otherwise negative. PHYSICAL EXAMINATION: VITAL SIGNS: He is afebrile, heart rate 105, respiratory rate 20, oximetry is 92 on room air, blood pressure 118/70. HEENT: Pupils are equal. Sclerae is anicteric. NECK: Supple. He has no cervical lymphadenopathy. LUNGS: Remarkable for fine crackles at both lung bases. HEART: Regular rhythm. S1 and S2 are normal. No murmur, gallop or rub. ABDOMEN: Soft and nontender. EXTREMITIES: Without clubbing, cyanosis, or edema. NEUROLOGIC: Exam is nonfocal. Chest radiograph reviewed by me shows very small patchy bilateral infiltrates. There is no dense alveolar infiltrate. He had a CT of his abdomen and pelvis showing improvement of his abdominal lymphadenopathy, 7.4 cm renal mass, bilateral effusions were seen. Lung windows did not show impressive alveolar infiltrates. IMPRESSION: 1. Staph aureus bacteremia, most likely associated with his indwelling port. I doubt this is a primary Staphylococcal pneumonia. I feel it is more likely that he has embolized to his lungs with the Staph. He is currently on appropriate antimicrobial therapy. Dr. Barillas has also seen the patient from Infectious Disease. He is stable to move out of the Intermediate Care Unit. Urology, probably needs to be consulted to at least discuss the renal mass with him which is likely to be a separate issue and not lymphoma/leukemia related. This is a 50 minute consult with greater than 50% of the time spent on the unit with coordination of care. STEVE
[2018-01-16] MEDS: Cefepime 2 GM, Syringe 2.5 ML in Sodium Chloride 0.9% 10 ML SLOW IVP SCH ×2 (14:20→21:32)
[2018-01-16] MEDS ORDERED: Ketorolac Tromethamine 30 MG/ML VIAL IVP PRN (15:57)
--- NOTE | 2018-01-16 20:06 | CON ---
DATE OF CONSULTATION: 01/16/2018 REASON FOR CONSULTATION: Mantle-cell leukemia. HISTORY OF PRESENT ILLNESS: Mr. Merino is a pleasant 57-year-old male who was discharged fr om this facility on Tuesday, but returned yesterday with a fever of 102 and confusion. 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 He is on his second week prior to initiation of chemo, his white count was 125,000. It has impro ernesto dramatically over the last 2 weeks and is now at 7000. There has been no evidence of tumor lysis syndrome. Yesterday in the ER, he was cultured and initial cultures show methicillin-sensitive Stap h aureus. He has been started on IV antibiotics. Dr. Barillas has been consulted. A chest x-ray showe d a possible pneumonia. Dr. Naqvi has seen the patient. We were asked to see the patient regarding his cancer. Patient has had significant pain over the last few weeks. On the prior admission, it wa s controlled with MS Contin, a Duragesic patch, and steroids. This has been continued on this admiss ion. He has pain in his arms and legs, but no neurological deficit. He denies any chest pain or liu rtness of breath. He is an everyday smoker and continues to smoke during this hospitalization. PAST MEDICAL HISTORY: 1. Mantle-cell leukemia. 2. Tobacco use. PAST SURGICAL HISTORY: 1. Splenectomy. 2. Facial reconstruction from traumatic injury as a child. 3. MediPort placement. ALLERGIES: No known drug allergies. HOME MEDICATIONS: 1. Pepcid 20 mg b.i.d. 2. Duragesic patch 50 mcg every 3 days. 3. Gordon 10/325 p.r.n. 4. MS Contin 30 mg q.12 hours. 5. Morphine IR 15 mg q.4 hours. 6. Decadron 4 mg b.i.d. FAMILY HISTORY: Noncontributory. SOCIAL HISTORY: , has 1 child, and lives with his mother, half pack of cigarettes daily. No alcohol. He does use marijuana. REVIEW OF SYSTEMS: Twelve-point review of systems is negative except for noted in HPI. PHYSICAL EXAMINATION: VITAL SIGNS: Temperature 99.4, pulse is 115, respiratory rate 18, BP is 118/70, he is 93% on room ai r. GENERAL: Chronically ill-appearing male in no acute distress. HEENT: Normocephalic, atraumatic. Pupils equal and reactive to light. NECK: Supple. CV: Tachycardia. LUNGS: He does have wheezing in his right upper lobe. ABDOMEN: Soft, nontender, bowel sounds are positive. EXTREMITIES: No clubbing, cyanosis, or edema. SKIN: No rash. HEMATOLOGICAL: He has got scattered bruising. NEUROLOGIC: Nonfocal. PSYCHIATRIC: Patient is alert and oriented and appropriate. PERTINENT LABORATORY DATA AND X-RAYS: Current WBCs are 5, hemoglobin 7.0, hematocrit 19.7, platelet count is 39,000. Sodium is 131, potassium 4.3, chloride 97, CO2 is 25, BUN is 16, creatinine 0.69. Lactic acid is 2.3, calcium 7.8. Total bilirubin is 1.4, AST is 59, ALT is 31, alkaline phosphatase is 261. Troponin is 0.150. Serum total protein is 4.2, albumin 2.5, globulin 1.7. Urine was negati ve for bacteria. Chest x-ray shows bibasilar infiltrates. ASSESSMENT: 1. Mantle-cell leukemia on new chemotherapy. 2. Staphylococcus bacteremia. 3. Intractable pain. 4. Anemia and thrombocytopenia from chemo. DISCUSSION: Patient has been started on IV antibiotics and Dr. Barillas has seen the patient. His Medi Port has been in place for several years and could be removed if needed. He is on oral chemotherapy at this time. His pain will be managed with the Duragesic patch, MS Contin, steroids. I will add To radol p.r.n. He has been transfused 2 units and we will check a daily CBC. He needs to continue his chemotherapy, as this is salvage. He does have a renal mass and related to his mantle-cell lymphoma . We will ask Urology for their opinion in order to be complete. We will follow him closely. Thank you for the consult.
[2018-01-17] MEDS: Vancomycin HCl 1.5 GM in Sodium Chloride 0.9% 250 ML 300 ML IVPB SCH ×2 (02:05→14:45)
[2018-01-17] MEDS: Cefepime 2 GM, Syringe 2.5 ML in Sodium Chloride 0.9% 10 ML SLOW IVP SCH ×3 (05:28→22:15)
[2018-01-17 06:20] LABS: Hemoglobin 6.8 g/dL (14.0-18.0); Mean Corpuscular HGB CONC 34.9 g/dL (32.0-36.0); Mean Corpuscular Hemoglobin 32.1 pg (27.0-31.0); Mean Platelet Volume 11.4 fL (7.4-10.4); Platelet Count 28 thou/uL (130-400); RBC Distribution Width 13.5 % (11.5-14.5); Red Blood Cell (RBC) Count 2.11 mill/uL (4.70-6.10); White Blood Cell (WBC) Count 3.7 thou/uL (4.8-10.8)
[2018-01-17 06:23] LABS: Anion Gap 10 mmol/L (10-20); BUN (Urea Nitrogen) 20 mg/dL (8.4-25.7); Calc. Creatinine Clearance 102 mL/min (70-130); Calcium 8.5 mg/dL (7.8-10.44); Carbon Dioxide 29 mmol/L (22-29); Chloride 95 mmol/L (98-107); Estimated GFR-MDRD Greater than 90; Glucose 138 mg/dL (70-105); Potassium 4.2 mmol/L (3.5-5.1); Sodium 130 mmol/L (136-145)
[2018-01-17 06:54] LABS: Differential Comment Immature Cell(s); Lymphocytes 72 % (21-51); MDiff Complete? YES; Monocytes 6 % (0-10); Neutrophil 3 % (42-75); PLT Morphology Comment Appears Decreased; RBC Morphology Normal; Reactive Lymphocytes 17 % (0-10)
[2018-01-17] MEDS: Saccharomyces boulardii 250 MG CAP PO SCH (09:06)
[2018-01-17] MEDS: Famotidine 20 MG TAB PO SCH ×2 (09:07→21:32)
[2018-01-17] MEDS: Morphine ER 15 MG TAB PO SCH ×2 (09:07→21:31)
[2018-01-17] MEDS: VENCLEXTA PO SCH (09:09)
[2018-01-17] MEDS: Dexamethasone 4 MG TAB PO SCH ×2 (09:10→21:31)
--- NOTE | 2018-01-17 10:43 | PDOC.PN ---
- Subjective Encounter Start Date: 01/17/18 Encounter Start Time: 07:00 pt is doing well clinically, afebrile, stable vitals, Hb dropped today, platelet dropped today Patient seen and examined. No new complaints. No overnight events - Objective Resuscitation Status: Resuscitation Status FULL:Full Resuscitation MAR Reviewed: Yes Vital Signs & Weight: Vital Signs (12 hours) Temp Pulse Resp BP BP Pulse Ox 01/17/18 08:00 98.5 F 113 H 24 H 128/77 94 L 01/17/18 04:42 96 01/17/18 04:00 98.3 F 105 H 20 112/72 93 L 01/17/18 00:36 110 H 18 96 01/16/18 23:45 99.6 F 120 H 20 113/60 95 Weight Weight 145 lb 12.8 oz I&O: 01/16/18 01/17/18 01/18/18 06:59 06:59 06:59 Intake Total 1050 1540 Output Total 1270 Balance -220 1540 Result Diagrams: 01/17/18 05:43 01/17/18 05:43 Radiology Reviewed by me: Yes (echo report) Phys Exam - Physical Examination Constitutional: NAD HEENT: PERRLA, moist MMs, sclera anicteric Neck: no JVD, supple Respiratory: no wheezing, no rhonchi few rales at base Cardiovascular: RRR, no significant murmur tachycardia Gastrointestinal: soft, non-tender, no distention, positive bowel sounds Musculoskeletal: no edema, pulses present Neurological: non-focal, normal sensation Lymphatic: no nodes Psychiatric: normal affect Skin: no rash, normal turgor Dx/Plan (1) Acute respiratory failure with hypoxia Code(s): J96.01 - ACUTE RESPIRATORY FAILURE WITH HYPOXIA Status: Resolved (2) Demand ischemia of myocardium Code(s): I24.8 - OTHER FORMS OF ACUTE ISCHEMIC HEART DISEASE Status: Acute (3) Encephalopathy acute Code(s): G93.40 - ENCEPHALOPATHY, UNSPECIFIED Status: Resolved (4) Healthcare associated bacterial pneumonia Code(s): J15.9 - UNSPECIFIED BACTERIAL PNEUMONIA Status: Acute (5) Hyponatremia Code(s): E87.1 - HYPO-OSMOLALITY AND HYPONATREMIA Status: Acute (6) Lactic acidosis Code(s): E87.2 - ACIDOSIS Status: Acute (7) Sepsis with acute organ dysfunction Code(s): A41.9 - SEPSIS, UNSPECIFIED ORGANISM; R65.20 - SEVERE SEPSIS WITHOUT SEPTIC SHOCK Status: Acute (8) Symptomatic anemia Code(s): D64.9 - ANEMIA, UNSPECIFIED Status: Acute (9) COPD (chronic obstructive pulmonary disease) Status: Chronic Qualifiers: Comment: (10) Mantle cell lymphoma Code(s): C83.10 - MANTLE CELL LYMPHOMA, UNSPECIFIED SITE Status: Chronic Comment: recurrence on chemo (11) Thrombocytopenia Code(s): D69.6 - THROMBOCYTOPENIA, UNSPECIFIED Status: Chronic Comment: (12) Bacteremia due to Staphylococcus aureus Code(s): R78.81 - BACTEREMIA Status: Acute (13) Chronic combined systolic and diastolic CHF (congestive heart failure) Code(s): I50.42 - CHRONIC COMBINED SYSTOLIC AND DIASTOLIC HRT FAIL Status: Chronic (14) Moderate mitral regurgitation Code(s): I34.0 - NONRHEUMATIC MITRAL (VALVE) INSUFFICIENCY Status: Chronic (15) Renal mass, right Code(s): N28.89 - OTHER SPECIFIED DISORDERS OF KIDNEY AND URETER Status: Chronic - Plan cont current plan of care, continue antibiotics * continue cefepime and vancomycin * tomorrow will do repeat blood culture including mediport * repeat labs tomorrow * transfusion will defer to oncology * medication reviewed as below * symptomatic treatment * ID following. * he may need mediport removal if culture continue to be positive and then he may need picc line for iv antibiotics Review of Systems - Review of Systems Constitutional: negative: fever, chills, sweats, weakness, malaise, other ENT: negative: Ear Pain, Ear Discharge, Nose Pain, Nose Discharge, Nose Congestion, Mouth Pain, Mouth Swelling, Throat Pain, Throat Swelling, Other Respiratory: negative: Cough, Dry, Shortness of Breath, Hemoptysis, SOB with Excertion, Pleuritic Pain, Sputum, Wheezing Cardiovascular: negative: chest pain, palpitations, orthopnea, paroxysmal nocturnal dyspnea, edema, light headedness, other Gastrointestinal: negative: Nausea, Vomiting, Abdominal Pain, Diarrhea, Constipation, Melena, Hematochezia, Other Genitourinary: negative: Dysuria, Frequency, Incontinence, Hematuria, Retention , Other Musculoskeletal: negative: Neck Pain, Shoulder Pain, Arm Pain, Back Pain, Hand Pain, Leg Pain, Foot Pain, Other Skin: negative: Rash, Lesions, Marin, Bruising, Other - Medications/Allergies Allergies/Adverse Reactions: Allergies Allergy/AdvReac Type Severity Reaction Status Date / Time No Known Allergies Allergy Verified 01/11/18 15:36 Medications: Current Medications Acetaminophen (Tylenol) 650 mg PO Q4H PRN PRN Reason: Headache/Fever or Pain Hydrocodone Bitart/Acetaminophen ([place] 10/325) 1 tab PO Q4H PRN PRN Reason: Moderate Pain (4-6) Last Admin: 01/16/18 02:34 Dose: 1 tab Al Hydroxide/Mg Hydroxide (Maalox) 30 ml PO Q6H PRN PRN Reason: Heartburn or Indigestion Albuterol/Ipratropium (Duoneb) 3 ml NEB Q4H PRN PRN Reason: SOB Artificial Tears (Tears Naturale) 0 drop EA EYE PRN PRN PRN Reason: Dry Eyes Dexamethasone (Decadron) 4 mg PO BID [facility] Stop: 01/19/18 09:01 Last Admin: 01/17/18 09:10 Dose: 4 mg Dexamethasone (Decadron) 4 mg PO DAILY [facility] Famotidine (Pepcid) 20 mg PO BID [facility] Last Admin: 01/17/18 09:07 Dose: 20 mg Fentanyl (Duragesic) 50 mcg TD Q3D [facility] Last Admin: 01/16/18 06:35 Dose: 50 mcg Guaifenesin (Robitussin Sf) 200 mg PO Q4H PRN PRN Reason: Cough Cefepime HCl 2 gm/ Syringe 2.5 (ml/ Sodium Chloride) 12.5 mls @ 150 mls/hr SLOW IVP Q8HR [facility] Last Admin: 01/17/18 05:28 Dose: 12.5 mls Vancomycin HCl 1.5 gm/ Sodium (Chloride) 300 mls @ 150 mls/hr IVPB 0200,1400 [facility] Last Admin: 01/17/18 02:05 Dose: 300 mls Ketorolac Tromethamine (Toradol) 15 mg IVP Q6H PRN PRN Reason: Mild-Mod Pain Stop: 01/21/18 15:58 Labetalol HCl (Normodyne) 20 mg SLOW IVP Q4H PRN PRN Reason: Systolic BP > 180 Lidocaine (Lidoderm 5% Patch) 1 patch TD DAILYPRN PRN PRN Reason: Pain Loperamide HCl (Imodium) 2 mg PO PRN PRN PRN Reason: Diarrhea/Loose Stools Loratadine (Claritin) 10 mg PO DAILYPRN PRN PRN Reason: Sinus Symptoms Magnesium Hydroxide (Milk Of Magnesium) 30 ml PO DAILYPRN PRN PRN Reason: Constipation Mineral Oil/White Petrolatum (Eucerin Cream) 0 gm TOP BIDPRN PRN PRN Reason: Dry Skin Miscellaneous Medication (Pharmacy To Dose) 1 each IVPB PRN PRN PRN Reason: Pharmacy to dose Morphine Sulfate (Morphine) 4 mg SLOW IVP Q4H PRN PRN Reason: Severe Pain (7-10) Last Admin: 01/16/18 14:21 Dose: 4 mg Morphine Sulfate (Ms Contin) 30 mg PO Q12HR [facility] Last Admin: 01/17/18 09:07 Dose: 30 mg Ondansetron HCl (Zofran Odt) 4 mg PO Q6H PRN PRN Reason: Nausea/Vomiting Ondansetron HCl (Zofran) 4 mg IVP Q6H PRN PRN Reason: Nausea/Vomiting 50 Mg Venclexta 0 each PO DAILY [facility] Last Admin: 01/17/18 09:09 Dose: 1 each Phenol (Chloraseptic [place] 180 Ml Bot) 0 ml PO PRN PRN PRN Reason: Sore Throat Saccharomyces Boulardii (Florastor) 250 mg PO DAILY [facility] Last Admin: 01/17/18 09:06 Dose: 250 mg Senna (Senokot) 2 tab PO HSPRN PRN PRN Reason: Constipation Sodium Chloride ([place] Nasal [place] 0.65%) 0 ml EA NARE QIDPRN PRN PRN Reason: Nasal Congestion Sodium Chloride (Flush - Normal Saline) 10 ml IVF PRN PRN PRN Reason: Saline Flush Last Admin: 01/17/18 09:06 Dose: 10 ml
--- NOTE | 2018-01-17 15:25 | PRG ---
DATE OF SERVICE: 01/17/2018 SUBJECTIVE: Mr. Merino says he is feeling better. OBJECTIVE: VITAL SIGNS: He is afebrile, heart rate 113, respiratory rate 24, oximetry is 94% on room air, blood pressure 120/77. LUNGS: Clear. HEART: Regular rhythm. ABDOMEN: Soft. LABORATORY DATA: White count 3.7, hemoglobin 6.8, platelets 28,000. He has no peripheral bands, but only 3% neutrophils, 72% lymphocytes. He does not have any metamyelocytes today. Creatinine is stable at a 0.74. Sodium is 130. IMPRESSION: Staphylococcal bacteremia. Sensitivities are not back, but it was not preliminarily rep orted as methicillin-resistant Staphylococcal aureus. I would suspect that this is from his port. He does have moderate mitral regurgitation, slow decreased ejection fraction. There is no vegetation seen on his echo, but this does not rule out endocarditis. I think it would be reasonable to plan on removing his port, but I will defer to Infectious Disease. He is medically stable after being transferred out of the Intermediate Care Unit.
--- NOTE | 2018-01-17 16:41 | PRG ---
DATE OF SERVICE: 01/17/2018 SUBJECTIVE: Sitting up in bed, transferred to Oncology, much more comfortable, not diaphoretic anymo re, no headaches. The pain in the legs has been managed with Toradol with better success then with o pioid medication. No back pain, no abdominal pain. Voiding without difficulty. OBJECTIVE: VITAL SIGNS: T-max 98.5, blood pressure 140/79, pulse 109, respirations 20, O2 sat 95%. GENERAL: Chronically ill, but in no distress, oriented, pleasant. LUNGS: With symmetric air entry. Clear lung vega. CARDIOVASCULAR: S1, S2, regular rate. ABDOMEN: Slightly distended, not tender. No ascites. No bladder distention. EXTREMITIES: Moves extremities equally. LABORATORY DATA: White cell count 3.7, hemoglobin 6.8, platelets 28,000. Creatinine is 0.74. A 2/2 sets of blood cultures, Staph aureus. ASSESSMENT AND DISCUSSION: Mantle cell lymphoma with a relapse, currently on Venetoclax; and now met hicillin-sensitive Staphylococcus aureus bacteremia, likely colonization ports. Other sites of invol vement are not apparent at this time. The patient will need port removal after that then PICC line p lacement and treat 4 weeks with IV cefazolin or Rocephin in the Oncology area.
[2018-01-18] MEDS: Vancomycin HCl 1.5 GM in Sodium Chloride 0.9% 250 ML 300 ML IVPB SCH ×2 (02:22→15:03)
[2018-01-18] MEDS: Cefepime 2 GM, Syringe 2.5 ML in Sodium Chloride 0.9% 10 ML SLOW IVP SCH ×3 (06:13→22:11)
[2018-01-18 06:21] LABS: Hemoglobin 8.5 g/dL (14.0-18.0); Mean Corpuscular Hemoglobin 31.1 pg (27.0-31.0); Mean Platelet Volume 11.7 fL (7.4-10.4); Platelet Count 22 thou/uL (130-400); RBC Distribution Width 12.9 % (11.5-14.5); Red Blood Cell (RBC) Count 2.72 mill/uL (4.70-6.10); White Blood Cell (WBC) Count 3.7 thou/uL (4.8-10.8)
[2018-01-18 06:37] LABS: ALT (SGPT) 27 U/L (8-55); AST (SGOT) 26 U/L (5-34); Albumin 2.9 g/dL (3.5-5.0); Alkaline Phosphatase 257 U/L (40-150); Anion Gap 15 mmol/L (10-20); BUN (Urea Nitrogen) 21 mg/dL (8.4-25.7); Calc. Creatinine Clearance 109 mL/min (70-130); Calcium 8.5 mg/dL (7.8-10.44); Carbon Dioxide 26 mmol/L (22-29); Chloride 92 mmol/L (98-107); Estimated GFR-MDRD Greater than 90; Globulin 2.2 g/dL (2.4-3.5); Glucose 107 mg/dL (70-105); Potassium 4.3 mmol/L (3.5-5.1); Protein, Total 5.1 g/dL (6.0-8.3); Sodium 129 mmol/L (136-145)
[2018-01-18 06:38] LABS: Lactic Acid 2.1 mmol/L (0.5-2.2)
[2018-01-18 06:42] LABS: Band 3 % (5-11); Lymphocytes 67 % (21-51); MDiff Complete? YES; Monocytes 1 % (0-10); Neutrophil 7 % (42-75); PLT Morphology Comment Appears Decreased
[2018-01-18] MEDS: Famotidine 20 MG TAB PO SCH ×2 (08:51→20:51)
[2018-01-18] MEDS: Saccharomyces boulardii 250 MG CAP PO SCH (08:52)
[2018-01-18] MEDS: Morphine ER 15 MG TAB PO SCH ×2 (08:52→20:50)
[2018-01-18] MEDS: Dexamethasone 4 MG TAB PO SCH ×2 (08:52→20:51)
--- NOTE | 2018-01-18 09:23 | PDOC.PN ---
- Subjective Encounter Start Date: 01/18/18 Encounter Start Time: 08:45 Patient seen and examined. No new complaints. No overnight events - Objective Resuscitation Status: Resuscitation Status FULL:Full Resuscitation MAR Reviewed: Yes Vital Signs & Weight: Vital Signs (12 hours) Temp Pulse Pulse Resp BP BP BP 01/18/18 08:25 98 F 113 H 24 H 125/82 125/82 01/18/18 08:00 98.0 F 113 H 24 H 125/82 01/18/18 04:00 98.1 F 102 H 20 121/81 01/17/18 23:16 98.8 F 106 H 20 127/77 01/17/18 22:12 98.5 F 105 H 20 144/84 H Pulse Ox 01/18/18 08:25 94 L 01/18/18 08:00 96 01/18/18 04:00 96 01/17/18 23:16 94 L 01/17/18 22:12 Weight Weight 145 lb 12.8 oz I&O: 01/17/18 01/18/18 01/19/18 06:59 06:59 06:59 Intake Total 1540 2780 Balance 1540 2780 Result Diagrams: 01/18/18 06:03 01/18/18 06:03 Phys Exam - Physical Examination Constitutional: NAD HEENT: PERRLA, moist MMs, sclera anicteric Neck: no JVD, supple Respiratory: no wheezing, no rales, no rhonchi Cardiovascular: RRR, no significant murmur, no rub Gastrointestinal: soft, non-tender, no distention, positive bowel sounds Musculoskeletal: no edema, pulses present Neurological: non-focal, normal sensation Psychiatric: normal affect, A&O x 3 Skin: no rash, normal turgor Dx/Plan (1) Acute respiratory failure with hypoxia Code(s): J96.01 - ACUTE RESPIRATORY FAILURE WITH HYPOXIA Status: Resolved (2) Demand ischemia of myocardium Code(s): I24.8 - OTHER FORMS OF ACUTE ISCHEMIC HEART DISEASE Status: Acute (3) Encephalopathy acute Code(s): G93.40 - ENCEPHALOPATHY, UNSPECIFIED Status: Resolved (4) Healthcare associated bacterial pneumonia Code(s): J15.9 - UNSPECIFIED BACTERIAL PNEUMONIA Status: Acute (5) Hyponatremia Code(s): E87.1 - HYPO-OSMOLALITY AND HYPONATREMIA Status: Acute (6) Lactic acidosis Code(s): E87.2 - ACIDOSIS Status: Acute (7) Sepsis with acute organ dysfunction Code(s): A41.9 - SEPSIS, UNSPECIFIED ORGANISM; R65.20 - SEVERE SEPSIS WITHOUT SEPTIC SHOCK Status: Acute (8) Symptomatic anemia Code(s): D64.9 - ANEMIA, UNSPECIFIED Status: Acute (9) COPD (chronic obstructive pulmonary disease) Status: Chronic Qualifiers: Comment: (10) Mantle cell lymphoma Code(s): C83.10 - MANTLE CELL LYMPHOMA, UNSPECIFIED SITE Status: Chronic Comment: recurrence on chemo (11) Thrombocytopenia Code(s): D69.6 - THROMBOCYTOPENIA, UNSPECIFIED Status: Chronic Comment: (12) Bacteremia due to Staphylococcus aureus Code(s): R78.81 - BACTEREMIA Status: Acute (13) Chronic combined systolic and diastolic CHF (congestive heart failure) Code(s): I50.42 - CHRONIC COMBINED SYSTOLIC AND DIASTOLIC HRT FAIL Status: Chronic (14) Moderate mitral regurgitation Code(s): I34.0 - NONRHEUMATIC MITRAL (VALVE) INSUFFICIENCY Status: Chronic (15) Renal mass, right Code(s): N28.89 - OTHER SPECIFIED DISORDERS OF KIDNEY AND URETER Status: Chronic - Plan cont current plan of care, plan discussed w/ family, continue antibiotics, social group worker * pt will need mediport removal, dr cordero consulted * after that will need PICC line for IV antibiotics for [address] Barillas * will need social work for arrangement of IV antibiotics * medication reviewed as below * symptomatic treatment * discussed with mother * otherwise stable and expecting discharge soon. Review of Systems - Review of Systems Constitutional: negative: fever, chills, sweats, weakness, malaise, other Eyes: negative: Pain, Vision Change, Conjunctivae Inflammation, Eyelid Inflammation, Redness, Other ENT: negative: Ear Pain, Ear Discharge, Nose Pain, Nose Discharge, Nose Congestion, Mouth Pain, Mouth Swelling, Throat Pain, Throat Swelling, Other Respiratory: negative: Cough, Dry, Shortness of Breath, Hemoptysis, SOB with Excertion, Pleuritic Pain, Sputum, Wheezing Cardiovascular: negative: chest pain, palpitations, orthopnea, paroxysmal nocturnal dyspnea, edema, light headedness, other Gastrointestinal: negative: Nausea, Vomiting, Abdominal Pain, Diarrhea, Constipation, Melena, Hematochezia, Other Genitourinary: negative: Dysuria, Frequency, Incontinence, Hematuria, Retention , Other Musculoskeletal: negative: Neck Pain, Shoulder Pain, Arm Pain, Back Pain, Hand Pain, Leg Pain, Foot Pain, Other Skin: negative: Rash, Lesions, Marin, Bruising, Other - Medications/Allergies Allergies/Adverse Reactions: Allergies Allergy/AdvReac Type Severity Reaction Status Date / Time No Known Allergies Allergy Verified 01/11/18 15:36 Medications: Current Medications Acetaminophen (Tylenol) 650 mg PO Q4H PRN PRN Reason: Headache/Fever or Pain Hydrocodone Bitart/Acetaminophen ([place] 10/325) 1 tab PO Q4H PRN PRN Reason: Moderate Pain (4-6) Last Admin: 01/16/18 02:34 Dose: 1 tab Al Hydroxide/Mg Hydroxide (Maalox) 30 ml PO Q6H PRN PRN Reason: Heartburn or Indigestion Albuterol/Ipratropium (Duoneb) 3 ml NEB Q4H PRN PRN Reason: SOB Alprazolam (Xanax) 0.5 mg PO NOW [facility] Stop: 01/18/18 11:30 Artificial Tears (Tears Naturale) 0 drop EA EYE PRN PRN PRN Reason: Dry Eyes Dexamethasone (Decadron) 4 mg PO BID [facility] Stop: 01/19/18 09:01 Last Admin: 01/18/18 08:52 Dose: 4 mg Dexamethasone (Decadron) 4 mg PO DAILY [facility] Famotidine (Pepcid) 20 mg PO BID [facility] Last Admin: 01/18/18 08:51 Dose: 20 mg Fentanyl (Duragesic) 50 mcg TD Q3D [facility] Last Admin: 01/16/18 06:35 Dose: 50 mcg Guaifenesin (Robitussin Sf) 200 mg PO Q4H PRN PRN Reason: Cough Cefepime HCl 2 gm/ Syringe 2.5 (ml/ Sodium Chloride) 12.5 mls @ 150 mls/hr SLOW IVP Q8HR [facility] Last Admin: 01/18/18 06:13 Dose: 12.5 mls Vancomycin HCl 1.5 gm/ Sodium (Chloride) 300 mls @ 150 mls/hr IVPB 0200,1400 [facility] Last Admin: 01/18/18 02:22 Dose: 300 mls Ketorolac Tromethamine (Toradol) 15 mg IVP Q6H PRN PRN Reason: Mild-Mod Pain Stop: 01/21/18 15:58 Last Admin: 01/17/18 11:19 Dose: 15 mg Labetalol HCl (Normodyne) 20 mg SLOW IVP Q4H PRN PRN Reason: Systolic BP > 180 Lidocaine (Lidoderm 5% Patch) 1 patch TD DAILYPRN PRN PRN Reason: Pain Loperamide HCl (Imodium) 2 mg PO PRN PRN PRN Reason: Diarrhea/Loose Stools Loratadine (Claritin) 10 mg PO DAILYPRN PRN PRN Reason: Sinus Symptoms Magnesium Hydroxide (Milk Of Magnesium) 30 ml PO DAILYPRN PRN PRN Reason: Constipation Mineral Oil/White Petrolatum (Eucerin Cream) 0 gm TOP BIDPRN PRN PRN Reason: Dry Skin Miscellaneous Medication (Pharmacy To Dose) 1 each IVPB PRN PRN PRN Reason: Pharmacy to dose Morphine Sulfate (Morphine) 4 mg SLOW IVP Q4H PRN PRN Reason: Severe Pain (7-10) Last Admin: 01/16/18 14:21 Dose: 4 mg Morphine Sulfate (Ms Contin) 30 mg PO Q12HR [facility] Last Admin: 01/18/18 08:52 Dose: 30 mg Ondansetron HCl (Zofran Odt) 4 mg PO Q6H PRN PRN Reason: Nausea/Vomiting Ondansetron HCl (Zofran) 4 mg IVP Q6H PRN PRN Reason: Nausea/Vomiting Phenol (Chloraseptic [place] 180 Ml Bot) 0 ml PO PRN PRN PRN Reason: Sore Throat Saccharomyces Boulardii (Florastor) 250 mg PO DAILY [facility] Last Admin: 01/18/18 08:52 Dose: 250 mg Senna (Senokot) 2 tab PO HSPRN PRN PRN Reason: Constipation Sodium Chloride ([place] Nasal [place] 0.65%) 0 ml EA NARE QIDPRN PRN PRN Reason: Nasal Congestion Sodium Chloride (Flush - Normal Saline) 10 ml IVF PRN PRN PRN Reason: Saline Flush Last Admin: 01/18/18 06:13 Dose: 10 ml
[2018-01-18] MEDS ORDERED: ALPRAZolam 0.5 MG TAB PO SCH (09:30)
[2018-01-18] MEDS ORDERED: Lidocaine 1% (PF) 30 ML VIAL ONE (13:51)
[2018-01-18] MEDS ORDERED: Lidocaine 1% w/Epinephrine 1:100K 20 ML VIAL NERVE BLCK SCH (14:15)
[2018-01-18 16:40] LABS: Vancomycin, Trough 13.8 ug/mL
--- NOTE | 2018-01-18 16:50 | PRG ---
DATE OF SERVICE: 01/18/2018 Mr. Merino's vital signs have been stable. Blood pressure has been stable. Heart rates just over 100 . Sats are 92 on room air. At time of my visit today he is having his port removed by Dr. Jack. We will continue antimicrobial therapy per Infectious Disease. Duration of antimicrobial therapy wi ll be per Dr. Barillas' guidance. He appears to be medically stable.
--- NOTE | 2018-01-18 19:29 | OP ---
DATE OF PROCEDURE: 01/18/2018 PREOPERATIVE DIAGNOSIS: Bacteremia, likely infected MediPort. POSTOPERATIVE DIAGNOSIS: Bacteremia, likely infected MediPort. PROCEDURE: Removal of tunneled central line subcutaneous port (MediPort). SURGEON: Lowell Jack MD ANESTHESIA: Local. ESTIMATED BLOOD LOSS: Minimal. COMPLICATIONS: None. SPECIMEN: Catheter tip sent for culture. INDICATION: The patient is a 57-year-old male with a history of mantle cell lymphoma, who is undergo ing treatment, showed up with fevers, body aches, found to be bacteremic. I have been consulted for MediPort removal. This port was placed at [facility] in [place]. It has been in place for a yea r and a half. Risks, benefits, and alternatives discussed. He gave consent. TECHNIQUE: The right upper chest around the port was prepped and draped in a sterile fashion. Local anesthetic infiltrated over the lower incision, over the MediPort. Previous incision was reopened. The MediPort was exposed, was dissected off the chest wall. The MediPort was pulled and removed. T he 3-0 Vicryl was used to close the tunnel up towards the subclavian vein with the subcutaneous tissu es, 4-0 Monocryl, and Steri-Strips used to close the incision. The patient tolerated the procedure w hardy.
[2018-01-19] MEDS: Vancomycin HCl 1.5 GM in Sodium Chloride 0.9% 250 ML 300 ML IVPB SCH ×2 (02:00→14:41)
[2018-01-19] MEDS: Cefepime 2 GM, Syringe 2.5 ML in Sodium Chloride 0.9% 10 ML SLOW IVP SCH ×2 (05:35→14:41)
[2018-01-19] MEDS: fentaNYL 50 mcg/hour Patch TD SCH (06:47)
--- NOTE | 2018-01-19 09:05 | PDOC.PN ---
- Subjective Encounter Start Date: 01/19/18 Encounter Start Time: 06:30 Patient seen and examined. No new complaints. No overnight events - Objective Resuscitation Status: Resuscitation Status FULL:Full Resuscitation MAR Reviewed: Yes Vital Signs & Weight: Vital Signs (12 hours) Temp Pulse Resp BP Pulse Ox 01/19/18 04:00 97.7 F 108 H 20 134/67 94 L 01/18/18 23:54 98.2 F 112 H 20 122/75 93 L Weight Weight 145 lb 12.8 oz I&O: 01/18/18 01/19/18 01/20/18 06:59 06:59 06:59 Intake Total 2780 1750 Balance 2780 1750 Result Diagrams: 01/18/18 06:03 01/18/18 06:03 Phys Exam - Physical Examination Constitutional: NAD HEENT: PERRLA, moist MMs, sclera anicteric Neck: no JVD, supple Respiratory: no wheezing, no rales, no rhonchi Cardiovascular: RRR, no significant murmur, no rub Gastrointestinal: soft, non-tender, no distention, positive bowel sounds Musculoskeletal: no edema, pulses present Neurological: non-focal, normal sensation, moves all 4 limbs Psychiatric: normal affect, A&O x 3 Skin: no rash, normal turgor Dx/Plan (1) Acute respiratory failure with hypoxia Code(s): J96.01 - ACUTE RESPIRATORY FAILURE WITH HYPOXIA Status: Resolved (2) Demand ischemia of myocardium Code(s): I24.8 - OTHER FORMS OF ACUTE ISCHEMIC HEART DISEASE Status: Acute (3) Encephalopathy acute Code(s): G93.40 - ENCEPHALOPATHY, UNSPECIFIED Status: Resolved (4) Healthcare associated bacterial pneumonia Code(s): J15.9 - UNSPECIFIED BACTERIAL PNEUMONIA Status: Acute (5) Hyponatremia Code(s): E87.1 - HYPO-OSMOLALITY AND HYPONATREMIA Status: Acute (6) Lactic acidosis Code(s): E87.2 - ACIDOSIS Status: Acute (7) Sepsis with acute organ dysfunction Code(s): A41.9 - SEPSIS, UNSPECIFIED ORGANISM; R65.20 - SEVERE SEPSIS WITHOUT SEPTIC SHOCK Status: Acute (8) Symptomatic anemia Code(s): D64.9 - ANEMIA, UNSPECIFIED Status: Acute (9) COPD (chronic obstructive pulmonary disease) Status: Chronic Qualifiers: Comment: (10) Mantle cell lymphoma Code(s): C83.10 - MANTLE CELL LYMPHOMA, UNSPECIFIED SITE Status: Chronic Comment: recurrence on chemo (11) Thrombocytopenia Code(s): D69.6 - THROMBOCYTOPENIA, UNSPECIFIED Status: Chronic Comment: (12) Bacteremia due to Staphylococcus aureus Code(s): R78.81 - BACTEREMIA Status: Acute (13) Chronic combined systolic and diastolic CHF (congestive heart failure) Code(s): I50.42 - CHRONIC COMBINED SYSTOLIC AND DIASTOLIC HRT FAIL Status: Chronic (14) Moderate mitral regurgitation Code(s): I34.0 - NONRHEUMATIC MITRAL (VALVE) INSUFFICIENCY Status: Chronic (15) Renal mass, right Code(s): N28.89 - OTHER SPECIFIED DISORDERS OF KIDNEY AND URETER Status: Chronic - Plan cont current plan of care, continue antibiotics, certified social workers in health care * medication reviewed as below * symptomatic treatment * urology evaluation for renal mass * PICC line today * mediport removed * repeat blood culture negative * Dr Barillas to write final recommendation on IV antibiotics * rehabilitation caseworker to arrange IV antibiotics on discharge * repeat labs today * stable and improving. Review of Systems - Review of Systems Constitutional: negative: fever, chills, sweats, weakness, malaise, other Eyes: negative: Pain, Vision Change, Conjunctivae Inflammation, Eyelid Inflammation, Redness, Other ENT: negative: Ear Pain, Ear Discharge, Nose Pain, Nose Discharge, Nose Congestion, Mouth Pain, Mouth Swelling, Throat Pain, Throat Swelling, Other Respiratory: negative: Cough, Dry, Shortness of Breath, Hemoptysis, SOB with Excertion, Pleuritic Pain, Sputum, Wheezing Cardiovascular: negative: chest pain, palpitations, orthopnea, paroxysmal nocturnal dyspnea, edema, light headedness, other Gastrointestinal: negative: Nausea, Vomiting, Abdominal Pain, Diarrhea, Constipation, Melena, Hematochezia, Other Genitourinary: negative: Dysuria, Frequency, Incontinence, Hematuria, Retention , Other Musculoskeletal: negative: Neck Pain, Shoulder Pain, Arm Pain, Back Pain, Hand Pain, Leg Pain, Foot Pain, Other Skin: negative: Rash, Lesions, [place], Bruising, Other - Medications/Allergies Allergies/Adverse Reactions: Allergies Allergy/AdvReac Type Severity Reaction Status Date / Time No Known Allergies Allergy Verified 01/11/18 15:36 Medications: Current Medications Acetaminophen (Tylenol) 650 mg PO Q4H PRN PRN Reason: Headache/Fever or Pain Hydrocodone Bitart/Acetaminophen ([place] 10/325) 1 tab PO Q4H PRN PRN Reason: Moderate Pain (4-6) Last Admin: 01/16/18 02:34 Dose: 1 tab Al Hydroxide/Mg Hydroxide (Maalox) 30 ml PO Q6H PRN PRN Reason: Heartburn or Indigestion Albuterol/Ipratropium (Duoneb) 3 ml NEB Q4H PRN PRN Reason: SOB Artificial Tears (Tears Naturale) 0 drop EA EYE PRN PRN PRN Reason: Dry Eyes Dexamethasone (Decadron) 4 mg PO DAILY [facility] Famotidine (Pepcid) 20 mg PO BID [facility] Last Admin: 01/18/18 20:51 Dose: 20 mg Fentanyl (Duragesic) 50 mcg TD Q3D [facility] Last Admin: 01/19/18 06:47 Dose: 50 mcg Guaifenesin (Robitussin Sf) 200 mg PO Q4H PRN PRN Reason: Cough Cefepime HCl 2 gm/ Syringe 2.5 (ml/ Sodium Chloride) 12.5 mls @ 150 mls/hr SLOW IVP Q8HR [facility] Last Admin: 01/19/18 05:35 Dose: 12.5 mls Vancomycin HCl 1.5 gm/ Sodium (Chloride) 300 mls @ 150 mls/hr IVPB 0200,1400 [facility] Last Admin: 01/19/18 02:00 Dose: 300 mls Ketorolac Tromethamine (Toradol) 15 mg IVP Q6H PRN PRN Reason: Mild-Mod Pain Stop: 01/21/18 15:58 Last Admin: 01/17/18 11:19 Dose: 15 mg Labetalol HCl (Normodyne) 20 mg SLOW IVP Q4H PRN PRN Reason: Systolic BP > 180 Lidocaine (Lidoderm 5% Patch) 1 patch TD DAILYPRN PRN PRN Reason: Pain Loperamide HCl (Imodium) 2 mg PO PRN PRN PRN Reason: Diarrhea/Loose Stools Loratadine (Claritin) 10 mg PO DAILYPRN PRN PRN Reason: Sinus Symptoms Magnesium Hydroxide (Milk Of Magnesium) 30 ml PO DAILYPRN PRN PRN Reason: Constipation Mineral Oil/White Petrolatum (Eucerin Cream) 0 gm TOP BIDPRN PRN PRN Reason: Dry Skin Miscellaneous Medication (Pharmacy To Dose) 1 each IVPB PRN PRN PRN Reason: Pharmacy to dose Morphine Sulfate (Morphine) 4 mg SLOW IVP Q4H PRN PRN Reason: Severe Pain (7-10) Last Admin: 01/16/18 14:21 Dose: 4 mg Morphine Sulfate (Ms Contin) 30 mg PO Q12HR [facility] Last Admin: 01/18/18 20:50 Dose: 30 mg Ondansetron HCl (Zofran Odt) 4 mg PO Q6H PRN PRN Reason: Nausea/Vomiting Ondansetron HCl (Zofran) 4 mg IVP Q6H PRN PRN Reason: Nausea/Vomiting Phenol (Chloraseptic [place] 180 Ml Bot) 0 ml PO PRN PRN PRN Reason: Sore Throat Saccharomyces Boulardii (Florastor) 250 mg PO DAILY [facility] Last Admin: 01/18/18 08:52 Dose: 250 mg Senna (Senokot) 2 tab PO HSPRN PRN PRN Reason: Constipation Sodium Chloride ([place] Nasal [place] 0.65%) 0 ml EA NARE QIDPRN PRN PRN Reason: Nasal Congestion Sodium Chloride (Flush - Normal Saline) 10 ml IVF PRN PRN PRN Reason: Saline Flush Last Admin: 01/19/18 05:37 Dose: 10 ml
[2018-01-19 09:07] VITALS: BP 131/81; TEMP 98.1
[2018-01-19] MEDS: Morphine ER 15 MG TAB PO SCH (09:24)
[2018-01-19] MEDS: Saccharomyces boulardii 250 MG CAP PO SCH (09:25)
[2018-01-19] MEDS: Dexamethasone 4 MG TAB PO SCH (09:25)
[2018-01-19] MEDS: Famotidine 20 MG TAB PO SCH (09:26)
--- NOTE | 2018-01-19 10:06 | PDOC.GSPN ---
Surgery Progress Note: Subj - Subjective Narrative: S/P mediport removal. Has no complaints Surgery Progress Note: Obj - Vital signs Vital signs: Vital Signs - Most Recent Temp Pulse Resp BP Pulse Ox 98.1 F 105 H 22 H 131/81 92 L 01/19/18 08:00 01/19/18 08:00 01/19/18 08:00 01/19/18 08:00 01/19/18 08:00 - Physical Exam General: no distress Wound: dressing clean,dry,intact Surgery Progress Note: Results - Labs Result Diagrams: 01/18/18 06:03 01/18/18 06:03 Surgery Progress Note: A/P - Problem (1) Bacteremia due to Staphylococcus aureus Current Visit: Yes Code(s): R78.81 - BACTEREMIA Status: Acute Assessment and Plan: Doing well postop mediport removal. I told the patient to remove the steri- strips in two weeks if still present. Follow up with me prn.
--- NOTE | 2018-01-19 10:19 | PRG ---
DATE OF SERVICE: 01/19/2018 Mr. Merino is doing well. His port is out. PHYSICAL EXAMINATION: VITAL SIGNS; He is afebrile, heart rate 105, respiratory rate 22, oximetry is 92 on room air. Blood pressure 131/81. He has his PICC line in. LUNGS: Clear. HEART: Regular rhythm. ABDOMEN: Soft. IMPRESSION: Staph aureus bacteremia. PLAN: One month of antibiotics total to cover for the possibility of endocarditis. He still will be followed by Oncology. He is medically stable.
[2018-01-19 10:42] LABS: INR-International Normal Ratio 1.2; PTT 26.5 SEC (22.9-36.1)
[2018-01-19 10:43] LABS: Hemoglobin 8.9 g/dL (14.0-18.0); Mean Corpuscular HGB CONC 33.9 g/dL (32.0-36.0); Mean Corpuscular Hemoglobin 31.5 pg (27.0-31.0); Mean Corpuscular Volume 92.8 fl (80.0-94.0); Mean Platelet Volume 9.2 fL (7.4-10.4); Platelet Count 57 thou/uL (130-400); RBC Distribution Width 12.9 % (11.5-14.5); Red Blood Cell (RBC) Count 2.84 mill/uL (4.70-6.10); White Blood Cell (WBC) Count 3.3 thou/uL (4.8-10.8)
[2018-01-19 10:58] LABS: Anion Gap 16 mmol/L (10-20); BUN (Urea Nitrogen) 24 mg/dL (8.4-25.7); Calc. Creatinine Clearance 102 mL/min (70-130); Calcium 8.7 mg/dL (7.8-10.44); Carbon Dioxide 26 mmol/L (22-29); Chloride 94 mmol/L (98-107); Estimated GFR-MDRD Greater than 90; Glucose 104 mg/dL (70-105); Potassium 4.4 mmol/L (3.5-5.1); Sodium 132 mmol/L (136-145)
--- NOTE | 2018-01-19 11:00 | DIS ---
PRIMARY CARE PHYSICIAN: Dr. Bouchra Garibay DATE OF ADMISSION: 01/15/2018 DATE OF DISCHARGE: Pending. PRIMARY DISCHARGE DIAGNOSES: 1. Bacteremia due to Staphylococcus aureus. 2. Demand ischemia of myocardium. 3. Healthcare associated bacterial pneumonia. 4. Hyponatremia. 5. Sepsis with acute organ dysfunction. 6. MediPort infection. 7. Lactic acidosis. 8. Symptomatic anemia. 9. Acute respiratory failure with hypoxia. 10. Acute encephalopathy. SECONDARY DISCHARGE DIAGNOSES: Chronic thrombocytopenia, pancytopenia, right renal mass, moderate mi tral regurgitation and mantle cell lymphoma, COPD, combined systolic and diastolic heart failure. PRIMARY PROCEDURE/OPERATION: MediPort removal, PICC line placement. RADIOLOGICAL INVESTIGATION: Chest x-ray showed bibasilar infiltration. Echocardiography showed EF 4 0-45%. No vegetation. SIGNIFICANT LABS: WBC 3.7, hemoglobin 8.5, platelet 22. Sodium 129, potassium 4.3, BUN 21, creatini ne 0.69. Lactic acid 2.1, calcium 8.5, AST 26, ALT 27, alkaline phosphatase 257, albumin 2.9. Urina lysis normal. Blood culture initially positive for Staph aureus and subsequently repeat blood cultur e negative. DISCHARGE MEDICATIONS: The patient will get 1 month of IV antibiotic therapy through PICC line as pe r Dr. Barillas. Continue following medications; dexamethasone 4 mg p.o. b.i.d., Pepcid 20 mg p.o. b.i.d ., Duragesic patch 50 mcg transdermal every 3 days, DuoNeb q.6 hourly p.r.n., Lidoderm patch daily, m orphine sulfate extended release 30 mg p.o. b.i.d., morphine sulfate immediate release 15 mg q.4h. p. r.n., Venclexta 50 mg p.o. daily (as per Oncology). CONTRAINDICATIONS: None. CODE STATUS: FULL CODE. INPATIENT CONSULTANTS: Dr. Barillas was consulted while in hospital and he recommended 1 month of IV an tibiotic therapy through PICC line. Oncology was consulted for lymphoma and pancytopenia. Dr. Naqvi was following for pneumonia. Dr. Jack was consulted for MediPort removal. TEST RESULTS PENDING ON DISCHARGE: None. ALLERGIES: No known drug allergy. DISCHARGE PLAN: Post hospital, the patient will follow up with Dr. Bouchra Garibay, Dr. Barillas as instru cted. The patient will also follow with Dr. Jaquez was consulted for renal mass. HOSPITAL COURSE: The patient is a 57-year-old male with above-mentioned medical problem who was admi tted by me. Please see my HPI for further detail. The patient was having altered mental status. He was having high grade fever and chills. Patient also found with hemoglobin 5.8 and his platelet cou nt was 68. He was having symptomatic anemia. During this admission, we suspected bacteremia and he was started on broad spectrum antibiotic therapy with cefepime, levofloxacin, and vancomycin. His est x-ray showed bibasilar infiltration and he had lactic acidosis, elevated troponin and hyponatremi a. The patient was suffering from sepsis with acute organ dysfunction. He was having acute hypoxic respiratory failure and demand ischemia of myocardium and lactic acidosis. He was also very tachycar dic on arrival and tachypneic and relatively hypotensive. The patient required IMCU admission and th at is why Dr. Naqvi saw this patient. We consulted Dr. Barillas as well. The next day blood culture wa s positive for Staph aureus. We suspected MediPort infection. His current pneumonia we are also freya pecting from a hematogenous spread of Staph aureus rather than primary pneumonia. Oncology was consulted while in hospital as well and they transfused 3 units of PRBC and [address]lets. Upon stabilization, this patient was transferred to oncology floor. With appropriate medic al treatment while in hospital his encephalopathy resolved, hypoxic respiratory failure resolved. He is stable hemodynamically. We consulted Dr. Jack and he removed infected MediPort as well. We a re doing PICC line and the patient will get IV antibiotic therapy for [address] Barillas. We a re working with the rn case manager hospice to arrange outpatient IV antibiotic therapy. Once that arrangement is done, then the patient is medically stable for discharge either today or tomorrow. The patient is seen and examined at bedside today. Please see my progress note from today for furthe r details.
[2018-01-19 11:09] LABS: Band 2 % (5-11); Hypochromia SLIGHT = 6-15 cells (100X) (0-5/hpf); Lymphocytes 85 % (21-51); MDiff Complete? YES; Metamyelocyte 2 % (0-0); Monocytes 6 % (0-10); Neutrophil 4 % (42-75); PLT Morphology Comment Appears Decreased; Polychromasia SLIGHT = 2-3 cells (100X) (0-2/hpf); Reactive Lymphocytes 1 % (0-10)
[2018-01-19 13:47] LABS: Vancomycin, Trough 18.1 ug/mL
[2018-01-19] MEDS ORDERED: Iopamidol 300 61% 100 ML VIAL FS ONE (13:58)
--- NOTE | 2018-01-19 15:26 | SPC ---
LEFT UPPER EXTREMITY PICC LINE INSERTION: HISTORY: Patient in need of long-term antibiotics, left upper extremity PICC line. TECHNIQUE: Informed consent was obtained from the patient. The patient had an indwelling left upper extremity m idline. The position of the midline was checked using some iodinated contrast given intravenously th rough the line. This line appears to be in the left basilic vein. RADIATION DOSIMETRY: 0.5 minutes of fluoroscopy and DAP of 969 mGy*^cm2. The left arm was prepped and draped in the usual sterile manner. A 1% Lidocaine solution was used to anesthetize the overlying soft tissues. An 0.018 wire was placed through the midline catheter. Acc ess was obtained of the left upper extremity venous system. The midline catheter was removed. The P ICC line was cut to 46 cm. A peelaway sheath was placed over the wire. PICC line was placed through the peelaway sheath over the wire distal tip confirmed by fluoroscopy in the superior vena cava/righ t atrial junction. IMPRESSION: Successful placement of left upper extremity PICC line catheter using fluoroscopic guidance. POS: OPAL
[2018-01-20] MEDS ORDERED: Dexamethasone 4 MG TAB PO SCH (09:00)
== END 2018-01-19 17:15 | disposition home or self-care (01) | DRG 314 ==
LOC: ERS 13:45 → ERHOLD 15:26 → IMCU/EMU 19:48 → ONC 01-16 12:55
PROVIDERS: ADMIT Internal Medicine; ATTEND Internal Medicine
PROC: 30233N1 Transfusion of Nonautologous Red Blood Cells into Peripheral Vein, Percutaneous Approach (ICD-10-PCS; 2018-01-15)
PROC: 30233R1 Transfusion of Nonautologous Platelets into Peripheral Vein, Percutaneous Approach (ICD-10-PCS; 2018-01-18)
PROC: 0JPT0WZ Removal of Totally Implantable Vascular Access Device from Trunk Subcutaneous Tissue and Fascia, Open Approach (ICD-10-PCS; principal; 2018-01-19)
PROC: 05PYX3Z Removal of Infusion Device from Upper Vein, External Approach (ICD-10-PCS; 2018-01-19)
PROC: 02HV33Z Insertion of Infusion Device into Superior Vena Cava, Percutaneous Approach (ICD-10-PCS; 2018-01-19)
DX: T80.211A Bloodstream infection due to central venous catheter, initial encounter (principal); A41.01 Sepsis due to Methicillin susceptible Staphylococcus aureus; J96.01 Acute respiratory failure with hypoxia; G93.41 Metabolic encephalopathy; J15.211 Pneumonia due to Methicillin susceptible Staphylococcus aureus; C83.10 Mantle cell lymphoma, unspecified site; D69.59 Other secondary thrombocytopenia; R65.20 Severe sepsis without septic shock; E87.2 Acidosis; I24.8 Other forms of acute ischemic heart disease; E87.1 Hypo-osmolality and hyponatremia; I50.42 Chronic combined systolic (congestive) and diastolic (congestive) heart failure; D64.9 Anemia, unspecified; G89.29 Other chronic pain; I34.0 Nonrheumatic mitral (valve) insufficiency; Y95 Nosocomial condition; T45.1X5A Adverse effect of antineoplastic and immunosuppressive drugs, initial encounter; Z79.899 Other long term (current) drug therapy; Y83.8 Other surgical procedures as the cause of abnormal reaction of the patient, or of later complication, without mention of misadventure at the time of the procedure
CPT/HCPCS: 36415; 36430; 36569; 71045; 80048; 80053; 80202; 81001; 82550; 82553; 83605; 83690; 83880; 84484; 85025; 85610; 85730; 86850; 86900; 86901; 87040; 87071; 87077; 87149; 87186; 93005; 93306; 94640; 96361; 96365; 96366; 96367; 96375; A4216; C1751; J0692; J1642; J1644; J1885; J1956; J2001; J2270; J3370; J7050; J7620; J8540; P9016; P9035

== ENCOUNTER 2018-02-17 10:12 | Day surgery (SDC) | payer OTHER, SELFPAY ==
[2018-02-17] MEDS ORDERED: diphenhydrAMINE 50 MG/ML VIAL IVP SCH (10:30)
[2018-02-17] MEDS ORDERED: Acetaminophen 500 MG TAB PO SCH (10:30)
[2018-02-17] MEDS ORDERED: RITUXIMAB IVPB SCH (10:30)
[2018-02-17] MEDS ORDERED: SODIUM CHLORIDE 0.9% IVPB SCH (10:30)
[2018-02-17] MEDS ORDERED: Sodium Chloride 0.9% 40 ML ONE (10:32)
[2018-02-17 14:11] VITALS: BP 114/71
== END 2018-02-17 14:13 | disposition home or self-care (01) ==
LOC: ONC/OP 10:12
PROVIDERS: ATTEND Internal Medicine Hematology & Oncology
DX: Z51.11 Encounter for antineoplastic chemotherapy (principal); C83.17 Mantle cell lymphoma, spleen; R11.10 Vomiting, unspecified
CPT/HCPCS: 96375; 96413; 96415; A4216; J1200; J7050; J9310

== ENCOUNTER 2018-02-24 09:52 | Day surgery (SDC) | payer OTHER ==
[2018-02-24 10:05] VITALS: BP 111/62; TEMP 98
[2018-02-24] MEDS ORDERED: Sodium Chloride 0.9% 30 ML ONE (10:21)
[2018-02-24] MEDS ORDERED: diphenhydrAMINE 25 MG in Sodium Chloride 0.9% 50 ML IVPB SCH (10:45)
[2018-02-24] MEDS ORDERED: Acetaminophen 500 MG TAB PO SCH (10:45)
[2018-02-24] MEDS ORDERED: SODIUM CHLORIDE 0.9% IVPB SCH (10:45)
[2018-02-24] MEDS ORDERED: RITUXIMAB IVPB SCH (10:45)
[2018-02-24] MEDS ORDERED: diphenhydrAMINE 50 MG/ML VIAL IVP SCH (11:00)
== END 2018-02-24 14:30 | disposition home or self-care (01) ==
LOC: ONC/OP 09:52
PROVIDERS: ATTEND Internal Medicine Hematology & Oncology
DX: Z51.11 Encounter for antineoplastic chemotherapy (principal); C83.17 Mantle cell lymphoma, spleen; Z79.899 Other long term (current) drug therapy
CPT/HCPCS: 96376; 96413; 96415; A4216; J1200; J7050; J9310

== ENCOUNTER 2018-03-03 09:26 | Day surgery (SDC) | payer OTHER ==
[2018-03-03] MEDS ORDERED: SODIUM CHLORIDE 0.9% IVPB SCH (10:00)
[2018-03-03] MEDS ORDERED: RITUXIMAB IVPB SCH (10:00)
[2018-03-03] MEDS ORDERED: diphenhydrAMINE 50 MG/ML VIAL IVP SCH (10:00)
[2018-03-03] MEDS ORDERED: Acetaminophen 500 MG TAB PO SCH (10:00)
[2018-03-03] MEDS ORDERED: Sodium Chloride 0.9% 40 ML ONE (10:27)
[2018-03-03 11:32] VITALS: BP 126/80; TEMP 97.8
== END 2018-03-03 14:31 | disposition home or self-care (01) ==
LOC: ONC/OP 09:26
PROVIDERS: ATTEND Internal Medicine Hematology & Oncology
DX: Z51.11 Encounter for antineoplastic chemotherapy (principal); C83.17 Mantle cell lymphoma, spleen; I50.32 Chronic diastolic (congestive) heart failure; G89.4 Chronic pain syndrome; Z79.899 Other long term (current) drug therapy
CPT/HCPCS: 96375; 96413; 96415; A4216; J1200; J7050; J9310

== ENCOUNTER 2018-03-17 12:31 | Day surgery (SDC) | payer OTHER, SELFPAY ==
[2018-03-17] MEDS ORDERED: Sodium Chloride 0.9% 30 ML ONE (12:58)
[2018-03-17] MEDS ORDERED: Acetaminophen 500 MG TAB PO SCH (13:00)
[2018-03-17] MEDS ORDERED: diphenhydrAMINE 50 MG/ML VIAL IVP SCH (13:00)
[2018-03-17 13:02] VITALS: BP 114/71; TEMP 98
[2018-03-17] MEDS ORDERED: SODIUM CHLORIDE 0.9% IVPB SCH (13:30)
[2018-03-17] MEDS ORDERED: RITUXIMAB IVPB SCH (13:30)
== END 2018-03-17 17:44 | disposition home or self-care (01) ==
LOC: ONC/OP 12:31
PROVIDERS: ATTEND Internal Medicine Hematology & Oncology
DX: Z51.11 Encounter for antineoplastic chemotherapy (principal); C83.17 Mantle cell lymphoma, spleen; F17.200 Nicotine dependence, unspecified, uncomplicated; D64.81 Anemia due to antineoplastic chemotherapy; T45.1X5A Adverse effect of antineoplastic and immunosuppressive drugs, initial encounter
CPT/HCPCS: 96375; 96413; 96415; A4216; J1200; J7050; J9310

== ENCOUNTER 2018-03-31 11:29 | Day surgery (SDC) | payer OTHER, SELFPAY ==
[2018-03-31] MEDS ORDERED: Sodium Chloride 0.9% 20 ML ONE (11:36)
[2018-03-31] MEDS ORDERED: Acetaminophen 500 MG TAB PO SCH (12:00)
[2018-03-31] MEDS ORDERED: RITUXIMAB IVPB SCH (12:00)
[2018-03-31] MEDS ORDERED: diphenhydrAMINE 50 MG/ML VIAL IVP SCH (12:00)
[2018-03-31] MEDS ORDERED: SODIUM CHLORIDE 0.9% IVPB SCH (12:00)
[2018-03-31 12:16] VITALS: BP 116/65
== END 2018-03-31 14:38 | disposition home or self-care (01) ==
LOC: ONC/OP 11:29
PROVIDERS: ATTEND Internal Medicine Hematology & Oncology
DX: Z51.11 Encounter for antineoplastic chemotherapy (principal); C83.17 Mantle cell lymphoma, spleen
CPT/HCPCS: 96375; 96413; 96415; A4216; J1200; J7050; J9310

== ENCOUNTER 2018-04-14 11:13 | Day surgery (SDC) | payer OTHER ==
[2018-04-14] MEDS ORDERED: SODIUM CHLORIDE 0.9% IVPB SCH (11:30)
[2018-04-14] MEDS ORDERED: Acetaminophen 500 MG TAB PO SCH (11:30)
[2018-04-14] MEDS ORDERED: RITUXIMAB IVPB SCH (11:30)
[2018-04-14] MEDS ORDERED: diphenhydrAMINE 50 MG/ML VIAL IVP SCH (11:30)
[2018-04-14] MEDS ORDERED: Sodium Chloride 0.9% 20 ML ONE ×2 (11:43)
== END 2018-04-14 14:58 | disposition home or self-care (01) ==
LOC: ONC/OP 11:13
PROVIDERS: ATTEND Internal Medicine Hematology & Oncology
DX: Z51.11 Encounter for antineoplastic chemotherapy (principal); C83.17 Mantle cell lymphoma, spleen; R11.10 Vomiting, unspecified; D64.9 Anemia, unspecified; T50.995A Adverse effect of other drugs, medicaments and biological substances, initial encounter; F17.200 Nicotine dependence, unspecified, uncomplicated
CPT/HCPCS: 96375; 96413; 96415; A4216; J1200; J7050; J9310

== ENCOUNTER 2018-04-28 09:54 | Day surgery (SDC) | payer OTHER, SELFPAY ==
[2018-04-28] MEDS ORDERED: Acetaminophen 500 MG TAB PO SCH (10:45)
[2018-04-28] MEDS ORDERED: RITUXIMAB IVPB SCH (10:45)
[2018-04-28] MEDS ORDERED: diphenhydrAMINE 50 MG/ML VIAL IVP SCH (10:45)
[2018-04-28] MEDS ORDERED: SODIUM CHLORIDE 0.9% IVPB SCH (10:45)
[2018-04-28 13:42] VITALS: BP 119/68; TEMP 98.2
== END 2018-04-28 14:37 | disposition home or self-care (01) ==
LOC: ONC/OP 09:54
PROVIDERS: ATTEND Internal Medicine Hematology & Oncology
DX: Z51.11 Encounter for antineoplastic chemotherapy (principal); C83.17 Mantle cell lymphoma, spleen; D63.0 Anemia in neoplastic disease; D64.81 Anemia due to antineoplastic chemotherapy; T45.1X5A Adverse effect of antineoplastic and immunosuppressive drugs, initial encounter; Z66 Do not resuscitate; Z79.899 Other long term (current) drug therapy
CPT/HCPCS: 96375; 96413; 96415; J1200; J7050; J9310

== ENCOUNTER 2018-05-17 15:01 | Inpatient (IN) | payer SELFPAY ==
[2018-05-17] MEDS ORDERED: Gadobenate Dimeglumine 529 MG/1 ML (20ML VIAL) ONE (15:17)
--- NOTE | 2018-05-17 15:33 | CT ---
CT BRAIN NONCONTRAST: DATE: 05/17/18 TIME: 1510 hours HISTORY: 58-year-old male with right-sided numbness and paresthesia. Rule out stroke. Dr. Suárez discussed the findings and recommendation by telephone with Dr. Stevens of the emergency depa rtment at 1515 hours on 05/17/18. COMPARISON: No prior CTs or MRIs of the brain. FINDINGS: There is a subtle finding of abnormally diffusely mildly high density throughout the bilateral pariet al cortical hsu matter, and also involving the left frontal cortical hsu matter, in multiple region s. There is also a more focal, approximately 1.0 x 1.5 cm mass-like moderately high density lesion in th e left parasagittal parietal region, broadly abutting the left side of the posterior interhemispheric falx. Ventricles are normal in size and configuration. No mass effect or midline shift. No extra-axial flui d collection or calvarial fracture. Upper portions of paranasal sinuses superior to the maxillary sin us level, and bilateral tympanomastoid cavities, are grossly clear. IMPRESSION: 1. Abnormal gyriform mildly high attenuation throughout the bilateral posterior cerebral cortex and left frontal cerebral cortex. Etiology is uncertain. 2. A 1 x 1.5 cm mass-like lesion broadly abutting the left side of the posterior interhemispheri c falx. Etiology is uncertain. 3. Recommend MRI of brain with and without contrast. CODE CR. BRYANNA Mallory POS: [facility]
[2018-05-17 15:34] LABS: Hemoglobin 16.1 g/dL (14.0-18.0); Mean Corpuscular Hemoglobin 33.8 pg (27.0-31.0); Mean Platelet Volume 6.9 fL (7.4-10.4); Platelet Count 514 thou/uL (130-400); RBC Distribution Width 15.6 % (11.5-14.5); Red Blood Cell (RBC) Count 4.77 mill/uL (4.70-6.10); White Blood Cell (WBC) Count 5.1 thou/uL (4.8-10.8)
[2018-05-17 15:43] LABS: INR-International Normal Ratio 1.1; PTT 27.8 SEC (22.9-36.1)
[2018-05-17 15:45] LABS: ALT (SGPT) 31 U/L (8-55); AST (SGOT) 22 U/L (5-34); Albumin 4.6 g/dL (3.5-5.0); Alkaline Phosphatase 118 U/L (40-150); Anion Gap 15 mmol/L (10-20); BUN (Urea Nitrogen) 12 mg/dL (8.4-25.7); Bilirubin, Total 0.3 mg/dL (0.2-1.2); CKMB 1.9 ng/mL (0-6.6); Calc. Creatinine Clearance 0 mL/min (70-130); Calcium 10.3 mg/dL (7.8-10.44); Carbon Dioxide 28 mmol/L (22-29); Chloride 101 mmol/L (98-107); Estimated GFR-MDRD 86; Globulin 2.6 g/dL (2.4-3.5); Glucose 123 mg/dL (70-105); Potassium 3.8 mmol/L (3.5-5.1); Protein, Total 7.2 g/dL (6.0-8.3); Sodium 140 mmol/L (136-145); Troponin I Less than 0.010 ng/mL (< 0.028)
[2018-05-17 16:10] LABS: Band 8 % (5-11); Lymphocytes 15 % (21-51); MDiff Complete? YES; Macrocytosis SLIGHT = 6-15 cells (100X) (0-5/hpf); Monocytes 7 % (0-10); Neutrophil 62 % (42-75); Ovalocytes SLIGHT = 2-5 cells (100X) (0-1/hpf); PLT Morphology Comment Appears Increased; Reactive Lymphocytes 8 % (0-10)
--- NOTE | 2018-05-17 16:11 | RAD ---
PORTABLE UPRIGHT FRONTAL CHEST RADIOGRAPH 05/17/18 COMPARISON: 01/15/18. HISTORY: Episodes of right sided facial numbness and right hand weakness. FINDINGS: There is stable widening of the right AC joint and cortical irregularity involving the distal aspect of the right clavicle suggesting prior surgery and/or trauma. Heart and mediastinal contours are sta ble. There is no pneumothorax, pleural fluid, focal consolidation, or alveolar edema. IMPRESSION: Stable portable frontal chest radiograph/no acute findings. POS: OPAL
[2018-05-17] MEDS ORDERED: Acetaminophen 650 MG Suppository PR PRN (16:35)
[2018-05-17] MEDS ORDERED: Bisacodyl 5 MG TAB PO PRN (16:35)
[2018-05-17] MEDS ORDERED: Acetaminophen 325 MG TAB PO PRN (16:35)
--- NOTE | 2018-05-17 17:12 | HP ---
PRIMARY CARE PROVIDER: None. ONCOLOGIST: Dr. Garibay. CHIEF COMPLAINT: Right-sided numbness. HISTORY OF PRESENT ILLNESS: Mr. Merino is a pleasant 58-year-old gentleman who was seen at [facility] on 05/17/2018. He has a history of mantle cell lymphoma for which he is on oral chemotherapy. He takes Venetoclax d aily. Over the last couple of weeks, on and off, but more so over the last 3 days, he has had right-sided f acial numbness as well as numbness in the right upper extremity. He reports that he does not have we akness in the right upper extremity, but has difficulty holding off on objects because of the numbnes s. He denies any chest pain or shortness of breath. He denies any other neurologic symptoms. He came to the emergency room because of the numbness over the right side of face and right upper ext remity. REVIEW OF SYSTEMS: All other systems reviewed and found to be negative. PAST MEDICAL HISTORY: Mantle cell lymphoma. PAST SURGICAL HISTORY: Splenectomy and facial reconstruction surgery. ALLERGIES: No known drug allergies. SOCIAL HISTORY: The patient smokes 10-12 cigarettes a day. He denies any alcohol use or recreationa l drug use. FAMILY HISTORY: Coronary artery disease in his father. HOME MEDICATIONS: Doses need to be clarified, but he appears to be on Venetoclax, Duragesic patch, P epcid, [place], DuoNeb, lidocaine, morphine sulfate ER and morphine sulfate IR. He also reports that y he was started on dexamethasone 2 mg daily for respiratory symptoms. PHYSICAL EXAMINATION: GENERAL: On examination, Mr. Merino is awake and alert, not in acute distress. VITAL SIGNS: Blood pressure is 122/98, pulse is 90, respiratory rate 22, and oxygen saturation 98% o n room air. EYES: No scleral icterus. No conjunctival pallor. ENT: Moist mucosal membranes, no oropharyngeal erythema or exudates. NECK: Supple, nontender, trachea is midline. RESPIRATORY: Accessory muscles of breathing are not active. Chest wall movements are symmetric bila terally. LUNGS: Clear to auscultation without wheeze, rhonchi or crepitations. CARDIOVASCULAR: S1 and S2 are heard, regular. Peripheral pulses are palpable. No carotid bruit, no pericardial rub. ABDOMEN: Soft, nontender, bowel sounds are heard, no hepatomegaly, no splenomegaly. NEUROLOGIC: Diminished sensation over the right lower half of the face as well as over the right upp er extremity. Cranial nerves II-XII intact otherwise. No other motor or sensory deficits. Deep ten don reflexes 2+, plantar reflex are downgoing bilaterally. MUSCULOSKELETAL: Power is 5/5 in all 4 extremities. LYMPHATIC: No cervical lymphadenopathy. SKIN: No rashes or subcutaneous nodules. PSYCHIATRIC: Normal mood, normal affect, patient is oriented to person, place, and time. LABORATORY DATA AND IMAGING DATA: Mr. Merino's labs and investigations were reviewed. He has a adithya l white count, normal hemoglobin, elevated platelet count of 514,000, INR 1.1 and an unremarkable com prehensive metabolic profile. Troponin I is normal. He had CT scan of the brain, noncontrast, which showed abnormal piriform moderately high attenuation throughout the bilateral posterior cerebral cor rory and left frontal cerebral cortex. The radiologist recommends MRI of brain with and without contr ast. ASSESSMENT AND PLAN: Mr. Merino is a pleasant 58-year-old gentleman who was seen at [facility] on 05/17/2018. His problem list includes: 1. Numbness: Etiology unclear, but concerning for [employer] lymphoma. He will be admitted to the [facility]. I will order MRI of brain with and without contrast. Emergency room physician has paged his onco logist and will discuss with his oncologist regarding patient's presentation. 2. Tobacco abuse: Patient has been counseled regarding tobacco cessation. We will start him on amanda otine replacement therapy. For further management and consultation depending on outcome of MRI. LEVEL OF RISK: Moderate. LEVEL OF COMPLEXITY: Moderate.
--- NOTE | 2018-05-17 19:44 | MRI ---
MRI OF THE BRAIN WITH AND WITHOUT CONTRAST 05/17/18 INDICATION: Right sided numbness and tingling since this morning with history of lymphoma. COMPARISON: CT of the brain dated 05/17/18. TECHNIQUE: Multiplanar and multisequence MRI images were obtained of the brain with and without contrast utilizi ng 15 mL of Multihance. FINDINGS: There are areas of gyriform T2 hyperintensity with associated enhancement involving the left frontal lobe, left parietal lobe, right frontal, right parietal and right temporal lobes with some associated restricted diffusion. There is a mildly extraaxial enhancing 1.8 cm mass seen along the posterior le ft aspect of the falx cerebri on image 14 of series 2 with mild enhancement. There is a focus of T2 h yperintensity without restricted diffusion involving the surface of the right inferior cerebellar hem isphere without appreciable enhancement. No intracranial hemorrhage or definite infarct is demonstrat ed. No midline shift or hydrocephalus is present. IMPRESSION: 1. Findings of diffuse leptomeningeal enhancement and abnormal signal intensity involving the bi lateral frontoparietal regions and right temporal region. Differential considerations in light of the patient's history of lymphoma would include lymphomatous meningitis. Other etiologies including men ingeal carcinomatosis or infectious meningitis are not entirely excluded. Small extra-axial focal enh ancing lesion was seen along the falx cerebri could also be seen with a nodular meningitis, meningeal carcinomatosis or lymphomatous involvement of the meninges. Small focus of hyperintensity seen along the inferior aspect of the right cerebellar hemisphere could also be related to a similar process. 2. No definite evidence to suggest infarct or hydrocephalus. 3. Findings were discussed with Dr. Castillo at 5:45 p.m. on 05/17/18. Code CR POS: OPAL
[2018-05-17] MEDS: Nicotine 14 MG PATCH TD SCH (21:17)
[2018-05-17] MEDS: Dexamethasone 4 MG in Sodium Chloride 0.9% 50 ML IVPB SCH (21:21)
[2018-05-17 21:34] VITALS: BMI 20.3
[2018-05-18 04:12] LABS: #Lymphocytes 0.5 thou/uL (1.20-3.40); #Monocytes 0.3 thou/uL (0.11-0.59); #Neutrophils 1.9 thou/uL (1.40-6.50); %Basophils 0.4 % (0.0-1.0); %Eosinophils 0.4 % (0.0-10.0); %Lymphocytes 19.5 % (21.0-51.0); %Monocytes 10.3 % (0.0-10.0); %Neutrophils 69.5 % (42.0-75.0); Hemoglobin 13.6 g/dL (14.0-18.0); Mean Corpuscular HGB CONC 33.7 g/dL (32.0-36.0); Mean Corpuscular Hemoglobin 34.3 pg (27.0-31.0); Mean Platelet Volume 6.7 fL (7.4-10.4); Platelet Count 454 thou/uL (130-400); RBC Distribution Width 15.4 % (11.5-14.5); Red Blood Cell (RBC) Count 3.98 mill/uL (4.70-6.10); White Blood Cell (WBC) Count 2.8 thou/uL (4.8-10.8)
[2018-05-18 04:28] LABS: Anion Gap 15 mmol/L (10-20); BUN (Urea Nitrogen) 13 mg/dL (8.4-25.7); Calc. Creatinine Clearance 98 mL/min (70-130); Calcium 9.4 mg/dL (7.8-10.44); Carbon Dioxide 25 mmol/L (22-29); Chloride 104 mmol/L (98-107); Estimated GFR-MDRD Greater than 90; Glucose 131 mg/dL (70-105); Potassium 4.2 mmol/L (3.5-5.1); Sodium 140 mmol/L (136-145)
[2018-05-18] MEDS: Dexamethasone 4 MG in Sodium Chloride 0.9% 50 ML IVPB SCH (06:54)
[2018-05-18] MEDS ORDERED: VENCLEXTA 100 MG PO SCH (09:00)
[2018-05-18] MEDS ORDERED: Dexamethasone 1 MG TAB PO SCH (09:00)
--- NOTE | 2018-05-18 09:53 | RAD ---
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 PROCEDURE: Informed consent was obtained. The patient was escorted to the procedural suite. Practice Specialist imaging was obtained of the lumbar spine. The low back was prepped and draped in the standard sterile fashion, with the patient in the prone po sition. Topical anesthesia with buffered 1% Lidocaine was achieved, after which a 20 gauge needle wa s uneventfully advanced into the thecal sac, from a left L3-L4 interlaminar approach. Clear-colored CSF was present at the needle hub. An opening pressure was then obtained and recorded at 12 cm h2o. Subsequently, 20 mL of clear-colored CSF was acquired and placed into four separate sealed, sterile containers, which were sent to the laboratory for further analysis. The needle was removed. Imaging was stored for documentation. No procedural complications were present. The patient was transferre d back to the hospital floor for continued care, in stable condition. FINDINGS: 1. Clear colorless cerebrospinal fluid. 2. Opening cerebrospinal fluid pressure 12 cm H2O. 3. Technically successful fluoroscopic guided lumbar puncture. Laboratory results are pending. POS: OPAL
[2018-05-18 09:56] LABS: CSF, Glucose 76 mg/dl (40-70); CSF, Protein 29 mg/dL (15-40)
[2018-05-18] MEDS ORDERED: fentaNYL 50 mcg/hour Patch TD SCH (10:00)
--- NOTE | 2018-05-18 10:55 | CON ---
DATE OF CONSULTATION: 05/18/2018 REASON FOR CONSULTATION: Lymphoma. HISTORY OF PRESENT ILLNESS: Mr. Merino is a pleasant 58-year-old gentleman who has a mantle cell lymp jayant. This was diagnosed in 2016. He had massive splenomegaly at time of diagnosis. He has had a s plenectomy. He has undergone multiple treatments and was in remission until December of 2017 when he smyth d a relapse. Since that time, he has been on Venclexta. Over the last several weeks he has had mult iple episodes of what he calls stroke-like symptoms. He would have a transient numbness in his face and in his legs. He came to the clinic yesterday for a blood draw and began to have right-sided faci al numbness with slight facial droop. He was sent to the emergency room for evaluation. A CT of the brain showed abnormal jarform attenuation throughout the bilateral posterior cerebral cortex and lef t frontal cerebral cortex. There was also a 1 x 1.5 mass-like lesion abutting the left side of the p osterior interhemispheric falx. He was started on steroids and admitted. He had a brain MRI which s howed diffuse leptomeningeal enhancement involving the bilateral frontoparietal regions in the right temporal regions This was concerning for spread of his lymphoma. He had an LP performed this mornin g and results are currently pending. He denies any neurological symptoms at this time. No shortness of breath or chest pain. No numbness or tingling and he has had no seizures with any of these sympt oms. PAST MEDICAL HISTORY: 1. Mantle cell lymphoma. 2. Chronic back pain. PAST SURGICAL HISTORY: 1. Splenectomy. 2. Facial reconstruction. ALLERGIES: No known drug allergies. FAMILY HISTORY: Noncontributory. SOCIAL HISTORY: He is , has 1 child. Lives with his mother. No alcohol or illicit drug use . He is a daily smoker. ALLERGIES: No known drug allergies. HOME MEDICATIONS: 1. Dexamethasone 2 mg daily. 2. Duragesic 50 mcg q.3 days. 3. Morphine 15 mg IR p.r.n. 4. Venclexta 100 mg daily. REVIEW OF SYSTEMS: A 12 point review of systems is negative except for noted in HPI. PHYSICAL EXAMINATION: VITAL SIGNS: Temperature is 97.5, pulse is 88, respiratory rate 20, BP is 113/80, he is 96% on room air. GENERAL: Well-developed, well-nourished male in no acute distress. HEENT: Normocephalic, atraumatic. Pupils equal and reactive to light. NECK: Supple. CARDIOVASCULAR: Regular rate and rhythm. LUNGS: Clear. ABDOMEN: Soft, nontender, bowel sounds are positive. EXTREMITIES: No clubbing, cyanosis or edema. SKIN: No rash. HEMATOLOGIC: No petechia or purpura. NEUROLOGIC: Nonfocal. PSYCHIATRIC: The patient is alert and oriented and appropriate. PERTINENT LABORATORY AND X-RAYS: Current WBCs are 2.8, hemoglobin 13.6, hematocrit 40.5, platelet co unt is 454,000, 69% neutrophils, 20% lymphocytes, 10% monocytes. PT is 14, INR is 1.1, PTT is 27.8. Sodium is 140, potassium 4.2, chloride 104, CO2 is 25, BUN is 13, creatinine 0.74, calcium is 9.4, t otal bilirubin is 0.8, AST is 22, ALT is 31, alkaline phosphatase is 118. Troponin is negative. Ser um total protein 7.2, albumin 4.6, globulin 2.6. Chest x-ray showed no acute process. IMPRESSION: 1. Mantle cell lymphoma. 2. 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 DISCUSSION: The patient has had his LP and cytology is currently pending. He has been started on st eroids and his pain medicine has been resumed. We discussed intrathecal treatment should his cytolog y came back positive for lymphoma. We discussed Ommaya placement versus LPs twice a week. We also d iscussed hospice. Discussion will continue over the next few days with him and his family. Thank you for the consult. We will follow him closely.
[2018-05-18 12:41] LABS: CSF Source CSF; Clarity Clear (Clear)
[2018-05-18 12:42] LABS: RBC Count - Manual 0 /cumm (None Seen); Tube # 4; WBC/NonHematics Count - Manual 4 /cumm (0-5)
[2018-05-18] MEDS: Dexamethasone 4 mg/ml Vial SLOW IVP SCH ×2 (14:55→22:33)
[2018-05-18] MEDS: Nicotine 14 MG PATCH TD SCH (14:55)
--- NOTE | 2018-05-18 17:54 | PDOC.PN ---
- Subjective Encounter Start Date: 05/18/18 Encounter Start Time: 17:53 Pt seen for followup re: right facial numbness. Pt reports feeling better today. - Objective Vital Signs & Weight: Vital Signs (12 hours) Temp Pulse Resp BP Pulse Ox 05/18/18 16:00 97.8 F 107 H 20 150/88 H 97 05/18/18 11:33 98.5 F 117 H 22 H 127/83 93 L 05/18/18 08:00 97.5 F L 88 20 92 L 05/18/18 07:48 97.5 F L 88 20 113/80 92 L Weight Weight 141 lb 14.4 oz I&O: 05/17/18 05/18/18 05/19/18 06:59 06:59 06:59 Intake Total 200 1000 Balance 200 1000 Result Diagrams: 05/18/18 03:58 05/18/18 03:58 Phys Exam - Physical Examination Constitutional: NAD HEENT: moist MMs, sclera anicteric, oral pharynx no lesions, 2+ tonsils Neck: no nodes, no JVD, supple, full ROM Respiratory: no wheezing, no rales, no rhonchi, clear to auscultation bilateral Cardiovascular: RRR, no rub S1, S2 Gastrointestinal: soft, non-tender, no distention, positive bowel sounds Neurological: non-focal, moves all 4 limbs Psychiatric: normal affect, A&O x 3 Dx/Plan (1) Right facial numbness Code(s): R20.0 - ANESTHESIA OF SKIN Status: Acute Comment: Improving (2) Leptomeningeal enhancement on MRI of brain Code(s): R94.02 - ABNORMAL BRAIN SCAN Status: Acute Comment: s/p LP, await cytology (3) COPD (chronic obstructive pulmonary disease) Status: Chronic Qualifiers: Comment: stable (4) Mantle cell lymphoma Code(s): C83.10 - MANTLE CELL LYMPHOMA, UNSPECIFIED SITE Status: Chronic Comment: oncology following - Plan * . Review of Systems - Review of Systems Constitutional: negative: fever, chills, sweats, weakness, malaise Respiratory: negative: Cough, Shortness of Breath, SOB with Excertion, Sputum, Wheezing Cardiovascular: negative: chest pain, palpitations, orthopnea, paroxysmal nocturnal dyspnea, edema, light headedness Gastrointestinal: negative: Nausea, Vomiting, Abdominal Pain, Diarrhea, Constipation, Melena, Hematochezia Genitourinary: negative: Dysuria, Frequency, Incontinence, Hematuria, Retention Neurological: Numbness - Medications/Allergies Allergies/Adverse Reactions: Allergies Allergy/AdvReac Type Severity Reaction Status Date / Time No Known Allergies Allergy Verified 05/17/18 21:28 Medications: Current Medications Acetaminophen (Tylenol) 650 mg PO Q4H PRN PRN Reason: Headache/Fever or Pain Acetaminophen (Tylenol) 650 mg DE Q4H PRN PRN Reason: Headache/Fever or Pain Bisacodyl (Dulcolax) 10 mg PO DAILYPRN PRN PRN Reason: Constipation Dexamethasone (Decadron) 4 mg SLOW IVP Q8HR DOMENICO Last Admin: 05/18/18 14:55 Dose: 4 mg Fentanyl (Duragesic) 50 mcg TD Q3D@1800 DOMENICO Nicotine (Nicoderm Patch) 14 mg TD Q24HR DOMENICO Last Admin: 05/18/18 14:55 Dose: Not Given
[2018-05-19 04:54] LABS: #Lymphocytes 0.6 thou/uL (1.20-3.40); #Monocytes 0.6 thou/uL (0.11-0.59); #Neutrophils 4.8 thou/uL (1.40-6.50); %Basophils 0.1 % (0.0-1.0); %Eosinophils 0.2 % (0.0-10.0); %Lymphocytes 10.5 % (21.0-51.0); %Monocytes 9.4 % (0.0-10.0); %Neutrophils 79.7 % (42.0-75.0); Hemoglobin 12.9 g/dL (14.0-18.0); Mean Corpuscular Hemoglobin 33.8 pg (27.0-31.0); Mean Platelet Volume 7.2 fL (7.4-10.4); Platelet Count 450 thou/uL (130-400); RBC Distribution Width 15.5 % (11.5-14.5); Red Blood Cell (RBC) Count 3.81 mill/uL (4.70-6.10)
[2018-05-19 04:58] LABS: Anion Gap 12 mmol/L (10-20); BUN (Urea Nitrogen) 19 mg/dL (8.4-25.7); Calc. Creatinine Clearance 93 mL/min (70-130); Carbon Dioxide 27 mmol/L (22-29); Chloride 103 mmol/L (98-107); Estimated GFR-MDRD Greater than 90; Glucose 133 mg/dL (70-105); Potassium 3.8 mmol/L (3.5-5.1); Sodium 138 mmol/L (136-145)
[2018-05-19] MEDS: Dexamethasone 4 mg/ml Vial SLOW IVP SCH ×2 (05:26→14:17)
[2018-05-19 11:36] VITALS: BP 125/84; TEMP 97.6
--- NOTE | 2018-05-19 12:25 | PRG ---
DATE OF SERVICE: 05/19/2018 This is a 30 minute initial hospital visit note in which 30 minutes were spent in reviewing the imagi ng, record, evaluation, examination of patient, and formulation of a plan. Greater than 50% of the t shelley was spent in counseling on Papi Merino. CHIEF COMPLAINT: Concern of leptomeningeal disease, possible lymphoma. HISTORY OF PRESENT ILLNESS: Mr. Machado is a very pleasant 58-year-old gentleman. I am seeing him i n the company of his brother and mother. He has had recent cranial imaging that is concerning for di ffuse leptomeningeal disease with nodular enhancement along the left side of the posterior falx. He underwent lumbar puncture yesterday. Cytology is still pending. We have been consulted regarding pl acement of Ommaya reservoir. PHYSICAL EXAMINATION: On exam he is neurologically intact and has no complaints. IMPRESSION AND PLAN: We will await the final cytology. I consented him regarding placement of Omma ya reservoir. The surgery will likely be at the end of next week given our current surgical schedul e and I discussed this with him. I certainly would be fine with dismissal home at any time and if so , I will plan to go over the imaging with he and his family in clinic on Tuesday with possible Omma ya placement or Tuesday of next week. INFORMED CONSENT: Goals, indications, alternatives, complications were discussed in detail regarding Ommaya reservoir placement. They understand the risks up to and including but not limited to wound healing issues such as infection, dehiscence, CSF leak, temporary and permanent neurologic deficits. They understand these risks and wish to proceed. Again, we will plan to tentatively based on pathol ogy and surgical timing proceed next week with a reservoir placement. 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
--- NOTE | 2018-05-19 20:20 | DIS ---
DATE OF ADMISSION: 05/17/2018 DATE OF DISCHARGE 05/19/2018 PRIMARY CARE PROVIDER: None. DISCHARGE DIAGNOSES: 1. Mantle cell lymphoma. 2. 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 DISCHARGE MEDICATIONS: In addition to resuming his preadmission home medications, he has been advise d to start dexamethasone 4 mg 3 times a day. CONSULTATIONS DURING THIS HOSPITALIZATION: Neurosurgery, Dr. Yves Tipton and Oncology, Dr. Garibay. HOSPITAL COURSE: Mr. Merino is a pleasant 58-year-old gentleman who was admitted to [facility] on 05/17/2018 for right-sided facial and left upper extremity numbness. Please refe r to my history and physical note dated 05/17/2018 for further details. He had MRI of the brain, whi ch was concerning for leptomeningeal enhancement. He underwent lumbar puncture under fluoroscopic gu idance on 05/18/2018. At the time of this dictation, cytology studies are pending. CSF fluid was co lorless, with four WBCs and 0 RBCs. Glucose was elevated at 76. Total protein was 29. He was started on dexamethasone 4 mg 3 times a day at the time of admission. He is being discharged home in a stable condition. He will follow up with Oncology Clinic next week for chemotherapy intrat hecally. CONDITION OF PATIENT ON THE DAY OF DISCHARGE: Stable. I assessed Mr. Merino on the day of discharge. He denies any chest pain or shortness of breath. Vital signs are stable. S1 and S2 are heard, reg ular. Lungs are clear to auscultation bilaterally. DISCHARGE DESTINATION: Home. TOTAL AMOUNT OF TIME SPENT COORDINATING THIS DISCHARGE: 33 minutes.
[2018-05-20] MEDS ORDERED: fentaNYL 50 mcg/hour Patch TD SCH (18:00)
== END 2018-05-19 14:33 | disposition home or self-care (01) | DRG 841 ==
LOC: ERS 15:01 → ONC 17:30
PROVIDERS: ADMIT Internal Medicine; ATTEND Internal Medicine
PROC: 009U3ZX Drainage of Spinal Canal, Percutaneous Approach, Diagnostic (ICD-10-PCS; principal; 2018-05-18)
DX: C83.10 Mantle cell lymphoma, unspecified site (principal); C70.9 Malignant neoplasm of meninges, unspecified; F17.210 Nicotine dependence, cigarettes, uncomplicated; G89.29 Other chronic pain; R29.701 NIHSS score 1
CPT/HCPCS: 36415; 36416; 62270; 70450; 70553; 71045; 80048; 80053; 82553; 82945; 84157; 84484; 85025; 85610; 85730; 87070; 87205; 88112; 88184; 89051; 93005; A4216; A9579; J1100; J7050; J8540

== ENCOUNTER → 2018-05-23 | Day surgery (SDC) | payer OTHER ==
[~2018-05-23] MED LIST changes: -Heparin 1,000 UNITS/ML VIAL ONE; +Methotrexate Sodium/PF 12 MG in Sodium Chloride 0.9% 9.52 ML IT SCH; +Prevnar 13-Val Conj/PF 0.5 ML SYRINGE IM ONE
[2018-05-23 12:20] VITALS: BMI 21.5
[2018-05-23 13:24] VITALS: BP 109/87; TEMP 98.7
--- NOTE | 2018-05-23 16:04 | RAD ---
LUMBAR PUNCTURE INTRATHECAL CHEMOTHERAPY ADMINISTRATION: 05/23/2018 HISTORY: A 58-year-old male with central nervous system involvement of mantle cell lymphoma. TECHNIQUE: Signed informed consent obtained. The patient was placed prone on the fluoroscopy table. Mess Attendant radi ographic images, two views, of the lumbar spine obtained. Skin of low back prepared and draped in th e usual sterile fashion. A 25 gauge needle used to apply buffered Lidocaine, superficially and deepl y. A 22 gauge spinal needle incrementally advanced from the left paramedian approach, at the L2-L3 l evel, under brief, intermittent fluoroscopy. Upon return of clear cerebrospinal fluid, a 10 mL adithya l saline solution containing 1.2 mg of methotrexate was slowly injected intrathecally over a period o f five minutes. The needle was removed. The patient tolerated the procedure well. No complications . IMPRESSION: Successful intrathecal administration of methotrexate. POS: [facility]
== END ==
LOC: RAD 12:01
PROVIDERS: ATTEND Internal Medicine Hematology & Oncology
PROC: B01BYZZ Fluoroscopy of Spinal Cord using Other Contrast (ICD-10-PCS; principal; 2018-05-23)
PROC: 009U3ZX Drainage of Spinal Canal, Percutaneous Approach, Diagnostic (ICD-10-PCS; principal; 2018-05-23)
DX: Z51.11 Encounter for antineoplastic chemotherapy (principal); C83.10 Mantle cell lymphoma, unspecified site; F17.210 Nicotine dependence, cigarettes, uncomplicated; F90.9 Attention-deficit hyperactivity disorder, unspecified type; D64.9 Anemia, unspecified; K21.9 Gastro-esophageal reflux disease without esophagitis
CPT/HCPCS: 62270; J7050; J9250

== ENCOUNTER → 2018-05-26 | Day surgery (SDC) | payer OTHER ==
[2018-05-25 09:31] VITALS: BMI 21.5
[~2018-05-26] MED LIST changes: +Methotrexate Sodium/PF 12 MG in Sodium Chloride 0.9% 10 ML IV SCH; -Methotrexate Sodium/PF 12 MG in Sodium Chloride 0.9% 9.52 ML IT SCH; -Prevnar 13-Val Conj/PF 0.5 ML SYRINGE IM ONE
[2018-05-26 07:54] VITALS: TEMP 99
--- NOTE | 2018-05-26 09:06 | RAD ---
FLUOROSCOPICALLY GUIDED INTRATHECAL CHEMOTHERAPY INJECTION: Date: 05/26/18 HISTORY: 58-year-old male with central nervous system involvement of mantle cell lymphoma. TECHNIQUE: Signed, informed consent obtained. Patient placed prone on fluoroscopy table. Skin of lower back prep ped and draped in usual sterile fashion. 25 gauge needle used to apply buffered lidocaine superficial ly and deeply. 22 gauge spinal needle advanced under brief, intermittent fluoroscopy from a left para median approach at the L2-3 level. Upon return of CSF, a total of 12 mg of methotrexate in a 10 mL sa line solution was slow injected over a period of 4 minutes. Needle was removed. Patient tolerated the procedure well. No complications. IMPRESSION: Technically successful intrathecal injection of 12 mg of methotrexate. POS: [facility]
== END ==
LOC: RAD 07:27
PROVIDERS: ATTEND Internal Medicine Hematology & Oncology
PROC: B01BZZZ Fluoroscopy of Spinal Cord (ICD-10-PCS; principal; 2018-05-26)
PROC: 009U3ZZ Drainage of Spinal Canal, Percutaneous Approach (ICD-10-PCS; principal; 2018-05-26)
DX: Z51.11 Encounter for antineoplastic chemotherapy (principal); C83.10 Mantle cell lymphoma, unspecified site
CPT/HCPCS: 62270; J9250

== ENCOUNTER 2018-06-02 09:42 | Day surgery (SDC) | payer OTHER, SELFPAY ==
[2018-06-01 13:07] VITALS: BMI 21.5
[2018-06-02] MEDS ORDERED: Methotrexate Sodium/PF 12 MG in Sodium Chloride 0.9% 9.52 ML IT SCH (10:00)
[2018-06-02 10:20] VITALS: BP 122/84; TEMP 98.4
--- NOTE | 2018-06-02 12:45 | RAD ---
FLUOROSCOPIC GUIDED LUMBAR PUNCTURE FOR INTRATHECAL CHEMOTHERAPY ADMINISTRATION: CLINICAL HISTORY: Mantle cell lymphoma. The patient presents for intrathecal chemotherapy administration. RADIATION EXPOSURE DATA: 0.2 minutes. INTERMITTENT FLUOROSCOPY: 15 mGy per m2. PROCEDURE: Informed consent was obtained. The patient was escorted to the procedural suite. The patient was pl aced in the prone position, and the lumbar spine was imaged with fluoroscopy, to plan the intrathecal administrative route of the chemotherapeutic agent. The low back was prepped and draped in the amy palumbo sterile fashion. A left L3 level interlaminar approach was selected. After standard sterile pr epping and draping and topical anesthesia with buffered 1% Lidocaine was performed, uneventful access using a 22 gauge needle was performed into the thecal sac, with clear colored CSF present at the nee dle hub. Subsequently, a slow infusion of the provided chemotherapeutic agent was performed, under f luoroscopic guidance. There were no procedural complications. The needle was then removed. The pat ient was transferred back to the radiology nurse holding area for post procedural surveillance. The patient was then discharged in stable condition. IMPRESSION: Technically successful lumbar puncture and intrathecal chemotherapy administration, as discussed tevin skelton POS: [facility]
== END 2018-06-02 12:20 | disposition home or self-care (01) ==
LOC: RAD 09:42
PROVIDERS: ATTEND Internal Medicine Hematology & Oncology
DX: Z51.11 Encounter for antineoplastic chemotherapy (principal); C83.17 Mantle cell lymphoma, spleen
CPT/HCPCS: 62270; A4216; J9250

== ENCOUNTER 2018-06-06 09:05 | Day surgery (SDC) | payer OTHER, SELFPAY ==
[2018-06-05 08:54] VITALS: BMI 21.5
[~2018-06-06 09:05] MED LIST changes: -Methotrexate Sodium/PF 12 MG in Sodium Chloride 0.9% 10 ML IV SCH; +Methotrexate Sodium/PF 12 MG in Sodium Chloride 0.9% 9.52 ML IT SCH; +Prevnar 13-Val Conj/PF 0.5 ML SYRINGE IM ONE
[2018-06-06 09:58] VITALS: TEMP 98.2
[2018-06-06 10:10] VITALS: BP 98/74
--- NOTE | 2018-06-06 12:37 | RAD ---
FLUOROSCOPIC GUIDED LUMBAR PUNCTURE: FLUOROSCOPIC GUIDED INTRATHECAL CHEMOTHERAPY ADMINISTRATION: CLINICAL HISTORY: Mantle cell lymphoma. The patient presents for lumbar puncture with CSF analysis, as well as intrath ecal chemotherapy administration. RADIATION EXPOSURE DATA: 0.2 minutes 8.9 mGy per m2. PROCEDURE: Informed consent was obtained. The patient was escorted to the procedural suite. The patient was pl aced in the prone position, and the lumbar spine was imaged with fluoroscopy. A left L3-L4 level int erlaminar approach was selected. After standard sterile prepping and draping and topical anesthesia with buffered 1% Lidocaine was performed, uneventful access using a 22 gauge needle was performed int o the thecal sac, with clear colored CSF present at the needle hub. Subsequently, approximately 8 mL of clear colored CSF was acquired and placed into four separate sealed sterile containers, which wer e sent to the laboratory for further analysis. Afterwards, a slow infusion of the provided chemother apeutic agent was performed within the thecal sac, under fluoroscopic guidance. There were no proced ural complications. The needle was removed. The patient was transferred to the radiology nurse hold ing area for post procedural surveillance, and was then discharged in stable condition. IMPRESSION: 1. Technically successful lumbar puncture, yielding clear, colorless cerebrospinal fluid, which was sent to the laboratory for further analysis. Results are pending. 2. Technically successful intrathecal chemotherapy administration. POS: [facility]
== END 2018-06-06 11:25 | disposition home or self-care (01) ==
LOC: RAD 09:05
PROVIDERS: ATTEND Internal Medicine Hematology & Oncology
DX: Z51.11 Encounter for antineoplastic chemotherapy (principal); C83.17 Mantle cell lymphoma, spleen; D64.81 Anemia due to antineoplastic chemotherapy; F17.200 Nicotine dependence, unspecified, uncomplicated; Z79.899 Other long term (current) drug therapy
CPT/HCPCS: 62270; 88112; A4216; J9250

== ENCOUNTER 2018-06-09 09:45 | Day surgery (SDC) | payer OTHER ==
[2018-06-09] MEDS ORDERED: Methotrexate Sodium/PF 12 MG in Sodium Chloride 0.9% 10 ML IT SCH (10:00)
[2018-06-09 11:46] VITALS: BP 118/68; TEMP 97.1
--- NOTE | 2018-06-09 13:07 | RAD ---
LUMBAR PUNCTURE WITH INTRATHECAL CHEMOTHERAPY: Date: 06/09/18 COMPARISON: Study from 06/06/18. TECHNIQUE/FINDINGS: The patient was brought to the fluoroscopy suite. All questions were answered. Informed consent obtai cynthia. Timeout performed. Patient's back was prepped and draped in the normal fashion. 2 mL of lidocain e was instilled into the superficial and deep soft tissues. Using a 20 gauge spinal needle, the thecal sac was accessed. 7 mL of clear CSF was aspirated. Subsequ ently, over a duration of 5 minutes, 12 mL of methotrexate and saline combination was instilled into the thecal sac. The patient tolerated the procedure well and without complication. IMPRESSION: Technically successful lumbar puncture with CSF aspiration, as well as intrathecal chemotherapy injec tion. Fluoro Time: 0.3 minutes. POS: [facility]
== END 2018-06-09 11:40 | disposition home or self-care (01) ==
LOC: RAD 09:45
PROVIDERS: ATTEND Internal Medicine Hematology & Oncology
PROC: 009U3ZZ Drainage of Spinal Canal, Percutaneous Approach (ICD-10-PCS; principal; 2018-06-09)
PROC: B01BZZZ Fluoroscopy of Spinal Cord (ICD-10-PCS; principal; 2018-06-09)
DX: Z51.11 Encounter for antineoplastic chemotherapy (principal); C83.17 Mantle cell lymphoma, spleen
CPT/HCPCS: 62270; J9250

== ENCOUNTER 2018-06-13 09:24 | Day surgery (SDC) | payer OTHER ==
[2018-06-09 09:31] VITALS: BMI 21.5
[~2018-06-13 09:24] MED LIST changes: +Methotrexate Sodium/PF 12 MG in Sodium Chloride 0.9% 10 ML IT SCH; -Methotrexate Sodium/PF 12 MG in Sodium Chloride 0.9% 9.52 ML IT SCH; -Prevnar 13-Val Conj/PF 0.5 ML SYRINGE IM ONE
[2018-06-13 09:55] VITALS: TEMP 99.3
--- NOTE | 2018-06-13 11:16 | RAD ---
LUMBAR PUNCTURE INTRATHECAL METHOTREXATE INJECTION: JESUS: 06/13/18. HISTORY: A 58-year-old male with PILE HEADER involvement of Mantle cell lymphoma. Twice weekly intrathecal Methotrexa te injection therapy. TECHNIQUE: Signed, informed consent obtained. The patient was placed prone on fluoroscopy table. The skin of matheus er back prepped and draped in the usual sterile fashion. 25-gauge needle was used to apply buffere d Lidocaine superficially and deeply. A 22-gauge spinal needle was advanced under brief, intermitten t fluoroscopy from a right paramedian approach at the L2-3 level. Upon return of clear CSF, a total of 12 mg of Methotrexate in a 10 mL saline solution was slowly injected over a period of 5 minutes. The needle was removed. The patient tolerated the procedure well. No complications. IMPRESSION: Technically successful intrathecal injection of 12 mg of Methotrexate. POS: [facility]
== END 2018-06-13 11:25 | disposition home or self-care (01) ==
LOC: RAD 09:24
PROVIDERS: ATTEND Internal Medicine Hematology & Oncology
PROC: 009Y3ZX Drainage of Lumbar Spinal Cord, Percutaneous Approach, Diagnostic (ICD-10-PCS; principal; 2018-06-13)
DX: Z51.11 Encounter for antineoplastic chemotherapy (principal); C83.11 Mantle cell lymphoma, lymph nodes of head, face, and neck
CPT/HCPCS: 62270; 88112; J9250